=== PATIENT | male | born 1955 | race Caucasian/White ===

== ENCOUNTER → 2020-04-27 13:26 | Outpatient (CLI) | payer BC, SELFPAY ==
[2020-04-27 13:34] LABS: Basophils # 0.1 K/mm3 (0-0.2); Basophils % 0.5 % (0.1-2.0); Eosinophils # 0.3 K/mm3 (0.0-0.4); Eosinophils % 2.3 % (0.1-12.0); Hemoglobin 17.1 g/dL (14.1-18.0); Lymphocytes # 1.9 K/mm3 (0.7-4.5); Lymphocytes % 15.8 % (10-50); Mean Corpuscular HGB Conc 34.9 g/dL (31.8-35.4); Mean Corpuscular Hemoglobin 33.6 pg (27.0-31.2); Mean Corpuscular Volume 96.4 fl (80-94); Mean Platelet Volume 8.8 fl (7.4-10.4); Monocytes # 0.7 K/mm3 (0.1-1.0); Monocytes % 5.3 % (1.7-9.3); Neutrophils # 9.3 K/mm3 (1.8-7.8); Platelet Count 202 K/mm3 (142-424); Red Blood Count 5.08 M/mm3 (4.60-6.20); Red Cell Distribution Width 13.3 % (11.5-17.5); White Blood Count 12.3 K/mm3 (4.8-10.8)
[2020-04-27 13:39] LABS: Alanine Aminotransferase 36 U/L (12-78); Albumin Level 4.1 g/dl (3.5-5.0); Albumin/Globulin Ratio 1.6 (1.1-1.8); Alkaline Phosphatase 69 U/L (38-126); Anion Gap 12.4 mEq/L (5-15); Aspartate Amino Transferase 28 U/L (17-59); Bilirubin,Total 0.9 mg/dl (0.2-1.3); Blood Urea Nitrogen 22 mg/dl (9-20); Calcium 9.7 mg/dl (8.4-10.2); Carbon Dioxide 33 mmol/L (22.0-30.0); Chloride 98 mmol/L (98-107); Chol/HDL Ratio 3.2 (1-3.5); Cholesterol 170 mg/dl (140-200); Estimated Glomerular Filt Rate 61 ml/min (>60); GFR (African American) 74 ML/MIN (>60); Globulin 2.5 g/dL (1.3-3.2); Glucose 112 mg/dl (74-100); HDL Cholesterol 53 mg/dl (40-60); Potassium 4.4 mmoL/L (3.5-5.1); Sodium 139 mmol/L (136-145); Total Protein,Serum 6.6 g/dl (6.3-8.2); Triglycerides 125 mg/dl (30-150); VLDL Cholesterol 25 mg/dL (0-40)
[2020-04-27 13:49] LABS: Direct LDL Cholesterol 104.21 mg/dL (100-129)
[2020-04-27 14:09] LABS: Prostate Specific Ag Screen 0.6 ng/ml (0.0-4.0)
[2020-05-01 09:10] LABS: Testosterone, Total, LC/MS 826.5 ng/dL (264.0-916.0); Testosterone,Free 21.1 pg/mL (6.6-18.1)
== END ==
PROVIDERS: Visit Provider Family Medicine
DX: R05 Cough (principal); I10 Essential (primary) hypertension; E03.9 Hypothyroidism, unspecified; E78.5 Hyperlipidemia, unspecified; Z12.5 Encounter for screening for malignant neoplasm of prostate
CPT/HCPCS: 80053; 80061; 84402; 84403; 85025; G0103

== ENCOUNTER → 2020-08-10 16:26 | Outpatient (CLI) | payer BC, SELFPAY ==
[2020-08-10 16:57] LABS: Alanine Aminotransferase 47 U/L (12-78); Albumin Level 4.2 g/dl (3.5-5.0); Albumin/Globulin Ratio 1.6 (1.1-1.8); Alkaline Phosphatase 68 U/L (38-126); Anion Gap 8.7 mEq/L (5-15); Aspartate Amino Transferase 32 U/L (17-59); Blood Urea Nitrogen 23 mg/dl (9-20); Calcium 9.9 mg/dl (8.4-10.2); Carbon Dioxide 36 mmol/L (22.0-30.0); Chloride 98 mmol/L (98-107); Estimated Glomerular Filt Rate 67 ml/min (>60); GFR (African American) 82 ML/MIN (>60); Globulin 2.6 g/dL (1.3-3.2); Glucose 103 mg/dl (74-100); Potassium 4.7 mmoL/L (3.5-5.1); Sodium 138 mmol/L (136-145); Total Protein,Serum 6.8 g/dl (6.3-8.2)
[2020-08-10 17:26] LABS: Thyroid Stimulating Hormone 1.51 uIU/mL (0.465-4.68)
== END ==
PROVIDERS: Visit Provider Family Medicine
DX: R53.83 Other fatigue (principal); I10 Essential (primary) hypertension; E03.9 Hypothyroidism, unspecified; E78.5 Hyperlipidemia, unspecified; Z23 Encounter for immunization
CPT/HCPCS: 80053; 84443

== ENCOUNTER → 2020-08-17 13:37 | Outpatient (CLI) | payer BC, SELFPAY ==
--- NOTE | 2020-08-17 13:44 | XR_ITS ---
PROCEDURE: XR CHEST 2V CLINICAL HISTORY: dyspnea COMPARISON: No exams were available for comparison FINDINGS: Borderline cardiomegaly without failure. The lungs are clear without infiltrates, suspicious nodules, or pleural effusions. There is increased density in the lower aspect of the anterior clear space and may be related to summation may be confirmed with follow-up if clinically warranted. Degenerative changes thoracic. IMPRESSION: 1. No acute finding. 2. Triangular-shaped opacity along the inferior aspect of the anterior clear space possibly related to summation artifact may be confirmed Dictated by: Dilan Youngblood MD 08/17/2020 14:02 Dilan Youngblood MD in [place] 08/17/2020 14:02
[2020-08-17 14:45] LABS: Basophils # 0.1 K/mm3 (0-0.2); Basophils % 0.5 % (0.1-2.0); Eosinophils # 0.4 K/mm3 (0.0-0.4); Eosinophils % 2.9 % (0.1-12.0); Hematocrit 53.4 % (42.0-52.0); Lymphocytes # 1.8 K/mm3 (0.7-4.5); Lymphocytes % 14.5 % (10-50); Mean Corpuscular Hemoglobin 32.2 pg (27.0-31.2); Mean Corpuscular Volume 94.8 fl (80-94); Monocytes # 0.7 K/mm3 (0.1-1.0); Monocytes % 5.8 % (1.7-9.3); Neutrophils # 9.2 K/mm3 (1.8-7.8); Neutrophils % 76.3 % (37.0-80.0); Platelet Count 221 K/mm3 (142-424); Red Blood Count 5.63 M/mm3 (4.60-6.20); Red Cell Distribution Width 13.5 % (11.5-17.5); White Blood Count 12.1 K/mm3 (4.8-10.8)
[2020-08-17 15:05] LABS: Hemoglobin 18.4 g/dL (14.1-18.0)
[2020-08-17 15:39] LABS: Alanine Aminotransferase 34 U/L (12-78); Albumin Level 4.4 g/dl (3.5-5.0); Alkaline Phosphatase 64 U/L (38-126); Aspartate Amino Transferase 29 U/L (17-59); Bilirubin,Direct 0.1 mg/dl (0.0-0.4); Bilirubin,Indirect 0.7 mg/dL (0.0-0.9); Bilirubin,Total 0.8 mg/dl (0.2-1.3); Bilirubin,Unconjugated 0.7 mg/dL (0.0-1.1); Blood Urea Nitrogen 29 mg/dl (9-20); Calcium 10.1 mg/dl (8.4-10.2); Carbon Dioxide 34 mmol/L (22.0-30.0); Chloride 97 mmol/L (98-107); Chol/HDL Ratio 3.2 (1-3.5); Cholesterol 175 mg/dl (140-200); Estimated Glomerular Filt Rate 67 ml/min (>60); GFR (African American) 82 ML/MIN (>60); Glucose 96 mg/dl (74-100); HDL Cholesterol 55 mg/dl (40-60); Sodium 137 mmol/L (136-145); Triglycerides 143 mg/dl (30-150); VLDL Cholesterol 29 mg/dL (0-40)
[2020-08-17 15:49] LABS: NT Pro Brain Natriuretic Pep. 106 pg/mL (0-125)
[2020-08-17 15:50] LABS: Direct LDL Cholesterol 95.02 mg/dL (100-129)
[2020-08-17 15:57] LABS: Free T4 (Free Thyroxine) 1.33 ng/dl (0.78-2.19)
[2020-08-17 16:10] LABS: Thyroid Stimulating Hormone 1.51 uIU/mL (0.465-4.68)
[2020-08-18 15:35] LABS: Coronavirus 19 IgG Antibody Negative (Negative); Coronavirus 19 IgM Antibody Negative (Negative)
== END ==
PROVIDERS: PCP Family Medicine; Visit Provider Urology
DX: R07.9 Chest pain, unspecified (principal); R06.00 Dyspnea, unspecified; R06.02 Shortness of breath; I50.9 Heart failure, unspecified; E66.9 Obesity, unspecified; E78.5 Hyperlipidemia, unspecified; G47.33 Obstructive sleep apnea (adult) (pediatric); I10 Essential (primary) hypertension
CPT/HCPCS: 36415; 71046; 80048; 80061; 80076; 83880; 84439; 84443; 85025; 86328

== ENCOUNTER 2020-08-19 08:11 | Day surgery (SDC) | payer BC, SELFPAY ==
[2020-08-19] VITALS (13 sets, daily range): BP systolic 95–144; BP diastolic 43–93; PULSE 64–86; RESP 12–18; TEMP 37.1; O2SAT 92–98; BMI 44.1
--- NOTE | 2020-08-19 | IR_ITS ---
APPROVED REPORT Patient Location: Outpatient [facility] Operator: AUGUST Lutz RT (R) PROCEDURES Left heart catheterization Left ventriculogram Selective coronary angiogram 500 cc therapeutic phlebotomy INDICATION Angina pectoris class IV, Congestive heart failure symptoms class IV, Polycythemia Informed consent was obtained prior to the procedure. COMPLICATIONS NONE Estimated Blood Loss: LESS THAN 10 ML TECHNIQUE One percent lidocaine used to anesthetize the right anterior aspect of the wrist. The right radial artery was accessed via the Seldinger technique. A 6 Macanese sheath was placed in the right radial artery. 2.5 mg of verapamil, 800 mcg of nitroglycerin, 1mg Lidocaine and 5000 U Heparin were given through the arterial sheath. The trap catheter was also used to perform left heart catheterization, left ventriculogram and selective coronary angiogram. At the end of the diagnostic heart procedure 500 cc of whole blood was removed from the arterial sheath. Patient tolerated the procedure well and remained asymptomatic throughout. His blood pressure was hemodynamically stable. At the end of the therapeutic phlebotomy the apparatus was removed the sheath was removed good hemostasis was achieved using TR banding patient was transferred to the postop holding in stable condition ANGIOGRAPHIC RESULTS The left main artery Normal The left anterior descending artery Normal The circumflex artery Normal The right coronary artery Dominant normal The GALVEZ ventriculogram reveals Normal slightly hyperdynamic at 75% The left ventricular end-diastolic pressure Elevated at 30 mmHg IMPRESSION Normal coronary arteries Hyperdynamic ventricle consistent with diastolic dysfunction Severely elevated LVEDP consistent with diastolic dysfunction Successful 500 cc large volume therapeutic phlebotomy PLAN 1. Treat diastolic dysfunction 2. Evaluation of polycythemia which should include renal ultrasound looking for renal cell carcinoma as well as a sleep study and other etiologies for polycythemia 3. As needed phlebotomy for polycythemia Electronically signed by : Alejandro Jenkins, 08/19/2020 11:49:52
== END 2020-08-19 14:46 | disposition home or self-care (01) ==
PROVIDERS: PCP Family Medicine; Visit Provider Internal Medicine
DX: I50.32 Chronic diastolic (congestive) heart failure (principal); E78.5 Hyperlipidemia, unspecified; G47.33 Obstructive sleep apnea (adult) (pediatric); R06.00 Dyspnea, unspecified; I11.0 Hypertensive heart disease with heart failure; R06.02 Shortness of breath; R07.9 Chest pain, unspecified; Z68.41 Body mass index [BMI] 40.0-44.9, adult; Z79.82 Long term (current) use of aspirin; Z79.899 Other long term (current) drug therapy; E03.9 Hypothyroidism, unspecified; I25.118 Atherosclerotic heart disease of native coronary artery with other forms of angina pectoris; E66.01 Morbid (severe) obesity due to excess calories; D75.1 Secondary polycythemia
CPT/HCPCS: 93306; 93458; 99152; 99195; C1725; C1760; C1769; J1644

== ENCOUNTER → 2020-09-04 12:23 | Outpatient (CLI) | payer BC, SELFPAY ==
--- NOTE | 2020-09-04 12:45 | US_ITS ---
PROCEDURE: US KIDNEY CLINICAL INDICATION: D75.1 - Secondary polycythemia COMPARISON: No exams were available for comparison FINDINGS: The right kidney is [id number]. No hydronephrosis, cortical thinning, or renal mass or perinephric fluid collection is evident. There is a 3 cm cyst along the lower pole of the right kidney. The left kidney is not demonstrated IMPRESSION: Unremarkable right renal ultrasound with hypertrophy of the right kidney. Left kidney is not demonstrated. Patient reports having only 1 kidney. Dictated by: Dilan Youngblood MD 09/04/2020 16:32 Dilan Youngblood MD in [place] 09/04/2020 16:32
[2020-09-04 13:28] LABS: Chloride 97 mmol/L (98-107); Sodium 137 mmol/L (136-145)
[2020-09-04 13:31] LABS: Blood Urea Nitrogen 30 mg/dl (9-20); Calcium 10.4 mg/dl (8.4-10.2); Carbon Dioxide 33 mmol/L (22.0-30.0); Estimated Glomerular Filt Rate 67 ml/min (>60); GFR (African American) 82 ML/MIN (>60); Glucose 111 mg/dl (74-100)
[2020-09-04 13:39] LABS: Basophils # 0.1 K/mm3 (0-0.2); Basophils % 0.5 % (0.1-2.0); Eosinophils # 0.3 K/mm3 (0.0-0.4); Eosinophils % 2.5 % (0.1-12.0); Hematocrit 52.5 % (42.0-52.0); Hemoglobin 17.6 g/dL (14.1-18.0); Lymphocytes # 1.9 K/mm3 (0.7-4.5); Lymphocytes % 15.5 % (10-50); Mean Corpuscular HGB Conc 33.5 g/dL (31.8-35.4); Mean Corpuscular Hemoglobin 33.1 pg (27.0-31.2); Mean Corpuscular Volume 98.9 fl (80-94); Mean Platelet Volume 9.6 fl (7.4-10.4); Monocytes # 0.8 K/mm3 (0.1-1.0); Monocytes % 6.4 % (1.7-9.3); Neutrophils # 9.4 K/mm3 (1.8-7.8); Neutrophils % 75.1 % (37.0-80.0); Platelet Count 223 K/mm3 (142-424); Red Blood Count 5.31 M/mm3 (4.60-6.20); Red Cell Distribution Width 12.5 % (11.5-17.5); White Blood Count 12.4 K/mm3 (4.8-10.8)
== END ==
PROVIDERS: PCP Family Medicine; Visit Provider Urology
DX: D75.1 Secondary polycythemia (principal); R06.00 Dyspnea, unspecified; R60.9 Edema, unspecified; I50.9 Heart failure, unspecified; E66.9 Obesity, unspecified; E78.5 Hyperlipidemia, unspecified; I10 Essential (primary) hypertension
CPT/HCPCS: 36415; 76770; 80048; 85025

== ENCOUNTER → 2020-09-04 12:32 | Outpatient (CLI) | payer BC, SELFPAY | PROVIDERS: Visit Provider Urology | DX: D75.1 Secondary polycythemia (principal) | CPT/HCPCS: 36415; 80048; 85025 ==

== ENCOUNTER → 2021-01-04 10:29 | Outpatient (CLI) | payer MEDICARE, SELFPAY ==
--- NOTE | 2021-01-04 10:29 | US_ITS ---
PROCEDURE: US KIDNEY CLINICAL INDICATION: Follow-up right renal cyst COMPARISON: US US KIDNEY from 09/04/2020 FINDINGS: There is a solitary right kidney. Right kidney measures twelve by by 9 cm. No hydronephrosis. A small cyst is present along the upper pole at 12 mm. Along the lower pole there is a 1 cm cyst. Additionally along the lower pole there is a 3 cm cyst. Questionable echoes are present within the 3 cm cyst. This however may be due to imaging technique and angling. Continued follow-up is suggested. IMPRESSION: Three right renal cysts the largest in the lower pole at 3 cm with questionable internal echoes not readily apparent on the previous study. MRI of the kidneys without and with gadolinium enhancement may provide further evaluation. Dictated by: Dilan Youngblood MD 01/04/2021 13:48 Dilan Youngblood MD in [place] 01/04/2021 13:48
== END ==
PROVIDERS: PCP Family Medicine; Visit Provider Physician Assistant
DX: N28.1 Cyst of kidney, acquired (principal)
CPT/HCPCS: 76770

== ENCOUNTER → 2021-01-11 13:52 | Outpatient (CLI) | payer MEDICARE, SELFPAY ==
[2021-01-11 14:33] LABS: Basophils # 0.1 K/mm3 (0-0.2); Basophils % 0.4 % (0.1-2.0); Eosinophils # 0.4 K/mm3 (0.0-0.4); Eosinophils % 3.3 % (0.1-12.0); Hematocrit 47.8 % (42.0-52.0); Hemoglobin 16.2 g/dL (14.1-18.0); Lymphocytes # 2.4 K/mm3 (0.7-4.5); Lymphocytes % 19.3 % (10-50); Mean Corpuscular HGB Conc 33.8 g/dL (31.8-35.4); Mean Corpuscular Hemoglobin 32.4 pg (27.0-31.2); Mean Platelet Volume 7.8 fl (7.4-10.4); Monocytes # 0.7 K/mm3 (0.1-1.0); Neutrophils # 8.6 K/mm3 (1.8-7.8); Neutrophils % 70.9 % (37.0-80.0); Platelet Count 221 K/mm3 (142-424); Red Blood Count 4.98 M/mm3 (4.60-6.20); Red Cell Distribution Width 12.7 % (11.5-17.5); White Blood Count 12.2 K/mm3 (4.8-10.8)
== END ==
PROVIDERS: Visit Provider Nurse Practitioner Family
DX: R06.00 Dyspnea, unspecified (principal)
CPT/HCPCS: 36415; 85025

== ENCOUNTER → 2021-01-14 08:24 | Outpatient (CLI) | payer MEDICARE, SELFPAY ==
--- NOTE | 2021-01-14 08:24 | MR_ITS ---
PROCEDURE: MR ABDOMEN WO/W CON CLINICAL INDICATION: right renal cyst Pt states he was born with only 1 kidney. Cyst was found on the rt kidney when he had a US done. This is to evaluate the cysts better per pt. Pt has large abdomen and only the kidney was able to be evaluated in the pre and contrast sequences. COMPARISON: US US KIDNEY from 09/04/2020 US US KIDNEY from 01/04/2021 TECHNIQUE: Routine multiplanar multi echo sequences are performed without gadolinium enhancement. Pt has large abdomen and only the kidney was able to be evaluated in the pre and contrast sequences. 26 ml prohance used for contrast. Lot#[id number] exp:11/2022. Lot# [id number] exp:04/2023 bun:30 creat:1.4 gfr:51. FINDINGS: There are 2 cysts of the right kidney 1 in the lower pole at 11 mm and 1 in the mid polar region at 13 mm. The show decreased T1 and increased T2 signal without enhancement consistent with simple cyst. The 3rd area measured on the recent ultrasound does not represent an area of cyst or solid lesion and was likely due to an area of artifact. There are few other tiny cyst within the right kidney. No suspicious solid lesions are evident. The right kidney is hypertrophic as the patient only has 1 kidney. There is a small hepatic cyst at 5 mm in the right hepatic lobe. The remaining abdomen was difficult to evaluate secondary to artifact and patient's body size. The gallbladder has an unremarkable appearance. No obvious pancreatic mass. The spleen has an unremarkable appearance. IMPRESSION: Benign-appearing right renal cyst. No suspicious solid lesions evident. Dictated by: Dilan Youngblood MD 01/16/2021 10:57 Dilan Youngblood MD in [place] 01/16/2021 10:57
[2021-01-14 08:53] LABS: Blood Urea Nitrogen 30 mg/dl (9-20); Estimated Glomerular Filt Rate 51 ml/min (>60); GFR (African American) 62 ML/MIN (>60)
== END ==
PROVIDERS: PCP Family Medicine; Visit Provider Nurse Practitioner Family
DX: N28.1 Cyst of kidney, acquired (principal)
CPT/HCPCS: 36415; 74183; 82565; 84520; A9576

== ENCOUNTER → 2021-03-25 17:23 | Outpatient (CLI) | payer MEDICARE, SELFPAY ==
[2021-03-25 18:06] LABS: Basophils # 0.1 K/mm3 (0-0.2); Basophils % 0.5 % (0.1-2.0); Eosinophils # 0.3 K/mm3 (0.0-0.4); Eosinophils % 2.6 % (0.1-12.0); Hematocrit 45.4 % (42.0-52.0); Hemoglobin 15.4 g/dL (14.1-18.0); Lymphocytes % 17.2 % (10-50); Mean Corpuscular Hemoglobin 32.4 pg (27.0-31.2); Mean Corpuscular Volume 95.4 fl (80-94); Mean Platelet Volume 9.9 fl (7.4-10.4); Monocytes # 0.8 K/mm3 (0.1-1.0); Monocytes % 6.5 % (1.7-9.3); Neutrophils # 8.6 K/mm3 (1.8-7.8); Neutrophils % 73.3 % (37.0-80.0); Platelet Count 218 K/mm3 (142-424); Red Blood Count 4.76 M/mm3 (4.60-6.20); Red Cell Distribution Width 13.3 % (11.5-17.5); White Blood Count 11.7 K/mm3 (4.8-10.8)
[2021-03-25 19:15] LABS: Chloride 97 mmol/L (98-107); Potassium 4.8 mmoL/L (3.5-5.1); Sodium 139 mmol/L (136-145)
[2021-03-25 19:17] LABS: Blood Urea Nitrogen 35 mg/dl (9-20); Estimated Glomerular Filt Rate 51 ml/min (>60); GFR (African American) 62 ML/MIN (>60)
[2021-03-25 19:18] LABS: Alanine Aminotransferase 36 U/L (12-78); Albumin Level 4.7 g/dl (3.5-5.0); Albumin/Globulin Ratio 1.7 (1.1-1.8); Alkaline Phosphatase 68 U/L (38-126); Anion Gap 16.8 mEq/L (5-15); Aspartate Amino Transferase 29 U/L (17-59); Bilirubin,Total 0.7 mg/dl (0.2-1.3); Carbon Dioxide 30 mmol/L (22.0-30.0); Globulin 2.8 g/dL (1.3-3.2); Glucose 97 mg/dl (74-100); Total Protein,Serum 7.5 g/dl (6.3-8.2)
[2021-03-25 19:49] LABS: Thyroid Stimulating Hormone 0.24 uIU/mL (0.465-4.68)
[2021-04-02 12:41] LABS: Testosterone,Free 21.9 pg/mL (6.6-18.1)
== END ==
PROVIDERS: Visit Provider Family Medicine
DX: E29.1 Testicular hypofunction (principal); R42 Dizziness and giddiness; I51.89 Other ill-defined heart diseases; E03.9 Hypothyroidism, unspecified
CPT/HCPCS: 80053; 84402; 84403; 84443; 85025

== ENCOUNTER → 2021-12-20 16:00 | Outpatient (CLI) | payer MEDICARE, SELFPAY ==
[2021-12-20 14:15] LABS: Basophils # 0.1 K/mm3 (0-0.2); Basophils % 0.4 % (0.1-2.0); Eosinophils # 0.4 K/mm3 (0.0-0.4); Eosinophils % 2.9 % (0.1-12.0); Hematocrit 48.5 % (42.0-52.0); Hemoglobin 15.4 g/dL (14.1-18.0); Lymphocytes # 1.7 K/mm3 (0.7-4.5); Lymphocytes % 14.5 % (10-50); Mean Corpuscular HGB Conc 31.8 g/dL (31.8-35.4); Mean Corpuscular Hemoglobin 33.3 pg (27.0-31.2); Mean Corpuscular Volume 104.7 fl (80-94); Mean Platelet Volume 10.4 fl (7.4-10.4); Monocytes # 0.7 K/mm3 (0.1-1.0); Monocytes % 5.7 % (1.7-9.3); Neutrophils # 9.2 K/mm3 (1.8-7.8); Neutrophils % 76.5 % (37.0-80.0); Platelet Count 261 K/mm3 (142-424); Red Blood Count 4.63 M/mm3 (4.60-6.20); Red Cell Distribution Width 13.4 % (11.5-17.5)
[2021-12-20 16:34] LABS: Anion Gap 12.6 mEq/L (5-15); Blood Urea Nitrogen 29 mg/dl (9-20); Calcium 9.4 mg/dl (8.4-10.2); Carbon Dioxide 28 mmol/L (22.0-30.0); Chloride 99 mmol/L (98-107); Chol/HDL Ratio 4.3 (1-3.5); Cholesterol 170 mg/dl (140-200); Estimated Glomerular Filt Rate 61 ml/min (>60); GFR (African American) 74 ML/MIN (>60); Glucose 111 mg/dl (74-100); HDL Cholesterol 40 mg/dl (40-60); Potassium 4.6 mmoL/L (3.5-5.1); Sodium 135 mmol/L (136-145); Triglycerides 197 mg/dl (30-150); VLDL Cholesterol 39 mg/dL (0-40)
[2021-12-20 16:44] LABS: Direct LDL Cholesterol 87.96 mg/dL (100-129)
[2021-12-20 17:23] LABS: Thyroid Stimulating Hormone 0.49 uIU/mL (0.465-4.68)
[2022-01-04 14:14] LABS: Testosterone, Total, LC/MS 276.4 ng/dL (264.0-916.0)
== END ==
PROVIDERS: Visit Provider Family Medicine
DX: R06.00 Dyspnea, unspecified (principal); E66.9 Obesity, unspecified; E03.9 Hypothyroidism, unspecified; N28.1 Cyst of kidney, acquired; Z68.42 Body mass index [BMI] 45.0-49.9, adult
CPT/HCPCS: 80048; 80061; 84402; 84403; 84443; 85025

== ENCOUNTER → 2022-05-21 09:13 | Outpatient (CLI) | payer MEDICARE, SELFPAY ==
[2022-05-20 18:59] LABS: Alanine Aminotransferase 37 U/L (12-78); Albumin Level 4.1 g/dl (3.5-5.0); Albumin/Globulin Ratio 1.5 (1.1-1.8); Alkaline Phosphatase 86 U/L (38-126); Aspartate Amino Transferase 39 U/L (17-59); Bilirubin,Total 0.8 mg/dl (0.2-1.3); Blood Urea Nitrogen 31 mg/dl (9-20); Calcium 9.6 mg/dl (8.4-10.2); Carbon Dioxide 32 mmol/L (22.0-30.0); Chloride 99 mmol/L (98-107); Cholesterol 170 mg/dl (140-200); Estimated Glomerular Filt Rate 67 ml/min (>60); GFR (African American) 81 ML/MIN (>60); Globulin 2.8 g/dL (1.3-3.2); Glucose 121 mg/dl (74-100); HDL Cholesterol 43 mg/dl (40-60); Sodium 136 mmol/L (136-145); Total Protein,Serum 6.9 g/dl (6.3-8.2); Triglycerides 210 mg/dl (30-150); VLDL Cholesterol 42 mg/dL (0-40)
[2022-05-20 19:30] LABS: Prostate Specific Ag Screen 0.7 ng/ml (0.0-4.0); Thyroid Stimulating Hormone 0.22 uIU/mL (0.465-4.68)
[2022-05-20 19:39] LABS: Basophils # 0.1 K/mm3 (0-0.2); Basophils % 0.5 % (0.1-2.0); Eosinophils # 0.2 K/mm3 (0.0-0.4); Eosinophils % 2.2 % (0.1-12.0); Hematocrit 48.7 % (42.0-52.0); Hemoglobin 15.4 g/dL (14.1-18.0); Lymphocytes # 1.6 K/mm3 (0.7-4.5); Mean Corpuscular HGB Conc 31.5 g/dL (31.8-35.4); Mean Corpuscular Hemoglobin 33.2 pg (27.0-31.2); Mean Corpuscular Volume 105.2 fl (80-94); Mean Platelet Volume 10.6 fl (7.4-10.4); Monocytes # 0.6 K/mm3 (0.1-1.0); Monocytes % 5.9 % (1.7-9.3); Neutrophils # 8.1 K/mm3 (1.8-7.8); Neutrophils % 76.4 % (37.0-80.0); Platelet Count 262 K/mm3 (142-424); Red Blood Count 4.63 M/mm3 (4.60-6.20); Red Cell Distribution Width 13.3 % (11.5-17.5); White Blood Count 10.6 K/mm3 (4.8-10.8)
[2022-05-20 21:15] LABS: Vitamin B12 > 1000 pg/mL (239-931)
[2022-05-23 09:36] LABS: Direct LDL Cholesterol 94 mg/dL (100-129)
[2022-05-27 12:22] LABS: Testosterone, Total, LC/MS 491.9 ng/dL (264.0-916.0); Testosterone,Free 10.1 pg/mL (6.6-18.1)
== END ==
PROVIDERS: PCP Family Medicine; Visit Provider Family Medicine
DX: E03.9 Hypothyroidism, unspecified (principal); E78.5 Hyperlipidemia, unspecified; R53.83 Other fatigue; Z12.5 Encounter for screening for malignant neoplasm of prostate; E78.2 Mixed hyperlipidemia
CPT/HCPCS: 80053; 80061; 82607; 84402; 84403; 84443; 85025; G0103

== ENCOUNTER → 2022-12-27 10:15 | Outpatient (CLI) | payer MEDICARE, SELFPAY ==
[2022-12-27 13:39] LABS: Basophils # 0.1 K/mm3 (0-0.2); Basophils % 0.9 % (0.1-2.0); Eosinophils # 0.3 K/mm3 (0.0-0.4); Hematocrit 50.8 % (42.0-52.0); Hemoglobin 16.1 g/dL (14.1-18.0); Lymphocytes % 14.5 % (10-50); Mean Corpuscular HGB Conc 31.8 g/dL (31.8-35.4); Mean Corpuscular Hemoglobin 32.8 pg (27.0-31.2); Mean Corpuscular Volume 103.2 fl (80-94); Mean Platelet Volume 10.3 fl (7.4-10.4); Monocytes # 0.6 K/mm3 (0.1-1.0); Monocytes % 4.8 % (1.7-9.3); Neutrophils # 10.4 K/mm3 (1.8-7.8); Neutrophils % 77.8 % (37.0-80.0); Platelet Count 249 K/mm3 (142-424); Red Blood Count 4.92 M/mm3 (4.60-6.20); Red Cell Distribution Width 12.7 % (11.5-17.5); White Blood Count 13.4 K/mm3 (4.8-10.8)
[2022-12-27 13:49] LABS: Alanine Aminotransferase 28 U/L (12-78); Albumin Level 4.2 g/dl (3.5-5.0); Albumin/Globulin Ratio 1.6 (1.1-1.8); Alkaline Phosphatase 66 U/L (38-126); Anion Gap 13.4 mEq/L (5-15); Aspartate Amino Transferase 28 U/L (17-59); Bilirubin,Total 0.7 mg/dl (0.2-1.3); Blood Urea Nitrogen 51 mg/dl (9-20); Calcium 9.7 mg/dl (8.4-10.2); Carbon Dioxide 33 mmol/L (22.0-30.0); Chloride 96 mmol/L (98-107); Cholesterol 181 mg/dl (140-200); Estimated Glomerular Filt Rate 43 ml/min (>60); GFR (African American) 53 ML/MIN (>60); Globulin 2.6 g/dL (1.3-3.2); Glucose 113 mg/dl (74-100); HDL Cholesterol 45 mg/dl (40-60); Potassium 5.4 mmoL/L (3.5-5.1); Sodium 137 mmol/L (136-145); Total Protein,Serum 6.8 g/dl (6.3-8.2); Triglycerides 206 mg/dl (30-150); VLDL Cholesterol 41 mg/dL (0-40)
[2022-12-27 13:59] LABS: Direct LDL Cholesterol 101.61 mg/dL (100-129)
[2022-12-27 14:06] LABS: 25-OH Vitamin D, Total 15.6 ng/mL (30-100)
[2022-12-27 14:18] LABS: Thyroid Stimulating Hormone 0.17 uIU/mL (0.465-4.68)
[2022-12-27 14:34] LABS: Hemoglobin A1C 5.7 % (4.0-6.0)
[2023-01-08 20:05] LABS: Testosterone, Total, LC/MS 237 ng/dL (.)
== END ==
PROVIDERS: PCP Family Medicine; Visit Provider Family Medicine
DX: I10 Essential (primary) hypertension (principal); E29.1 Testicular hypofunction; E11.9 Type 2 diabetes mellitus without complications; E55.9 Vitamin D deficiency, unspecified
CPT/HCPCS: 80053; 80061; 82306; 83036; 84403; 84443; 85025

== ENCOUNTER → 2023-01-24 14:42 | Outpatient (CLI) | payer MEDICARE, SELFPAY ==
[2023-01-24 14:36] LABS: Alanine Aminotransferase 26 U/L (12-78); Albumin Level 3.8 g/dl (3.5-5.0); Albumin/Globulin Ratio 1.5 (1.1-1.8); Alkaline Phosphatase 71 U/L (38-126); Anion Gap 10.9 mEq/L (5-15); Aspartate Amino Transferase 23 U/L (17-59); Bilirubin,Total 0.4 mg/dl (0.2-1.3); Blood Urea Nitrogen 32 mg/dl (9-20); Calcium 9.4 mg/dl (8.4-10.2); Carbon Dioxide 38 mmol/L (22.0-30.0); Chloride 97 mmol/L (98-107); Estimated Glomerular Filt Rate 47 ml/min (>60); GFR (African American) 56 ML/MIN (>60); Globulin 2.6 g/dL (1.3-3.2); Glucose 105 mg/dl (74-100); Potassium 4.9 mmoL/L (3.5-5.1); Sodium 141 mmol/L (136-145); Total Protein,Serum 6.4 g/dl (6.3-8.2)
== END ==
PROVIDERS: PCP Family Medicine; Visit Provider Family Medicine
DX: E78.5 Hyperlipidemia, unspecified (principal)
CPT/HCPCS: 80053

== ENCOUNTER → 2023-03-22 13:01 | Outpatient (CLI) | payer MEDICARE, SELFPAY ==
--- NOTE | 2023-03-22 13:46 | CT_ITS ---
FINAL REPORT CLINICAL HISTORY: lung cancer screening, former smoker, quit 5 yrs ago, smoked 2 pk per day x 15 yrs COMPARISON: None FINDINGS: CT CHEST LOW DOSE SCREENING HISTORY: Screening exam for lung cancer. Former smoker, 30 pack year smoking history DOSE: CTDIvol: 2.9 mGy, DLP: 123.5 mGy*cm COMPARISON: None . TECHNIQUE: Axial CT without IV contrast administration using low dose protocol FINDINGS: There is a right lower lobe opacity worrisome for pneumonia. A small right pleural effusion is present as well. There is mild left base and right middle lobe scar versus atelectasis. No pulmonary lesions are seen suspicious for neoplasm. No adenopathy or mass lesion is present . IMPRESSION: Right middle lobe opacity worrisome for pneumonia. A small right pleural effusion is present as well. LUNG RADS CATEGORY 0 RECOMMENDATION: 1-3 month LDCT follow up Reviewed, Interpreted and Dictated by Shiva Vera III, MD Transcribed by Hannah Jessica Authenticated and . [facility]
== END ==
PROVIDERS: PCP Family Medicine; Visit Provider Internal Medicine Pulmonary Disease
DX: R06.02 Shortness of breath (principal); Z87.891 Personal history of nicotine dependence; Z12.2 Encounter for screening for malignant neoplasm of respiratory organs
CPT/HCPCS: 71271; 93306; 94060; 94618; 94726; 94729; 94762

== ENCOUNTER → 2023-04-20 09:52 | Outpatient (CLI) | payer MEDICARE, SELFPAY ==
[2023-04-20 11:21] LABS: Blood Urea Nitrogen 36 mg/dl (9-20); Calcium 9.7 mg/dl (8.4-10.2); Carbon Dioxide 36 mmol/L (22.0-30.0); Chloride 98 mmol/L (98-107); Estimated Glomerular Filt Rate 47 ml/min (>60); GFR (African American) 56 ML/MIN (>60); Glucose 114 mg/dl (74-100); Sodium 140 mmol/L (136-145)
== END ==
PROVIDERS: PCP Family Medicine; Visit Provider Nurse Practitioner Family
DX: E66.9 Obesity, unspecified (principal); R06.09 Other forms of dyspnea; Z87.09 Personal history of other diseases of the respiratory system; Z68.42 Body mass index [BMI] 45.0-49.9, adult
CPT/HCPCS: 36415; 80048

== ENCOUNTER → 2023-05-04 11:49 | Outpatient (CLI) | payer MEDICARE, SELFPAY ==
[2023-05-04 12:55] LABS: Chloride 99 mmol/L (98-107); Potassium 5.4 mmoL/L (3.5-5.1); Sodium 140 mmol/L (136-145)
[2023-05-04 12:58] LABS: Anion Gap 11.4 mEq/L (5-15); Blood Urea Nitrogen 40 mg/dl (9-20); Carbon Dioxide 35 mmol/L (22.0-30.0); Estimated Glomerular Filt Rate 47 ml/min (>60); GFR (African American) 56 ML/MIN (>60)
[2023-05-04 12:59] LABS: Calcium 10.4 mg/dl (8.4-10.2); Glucose 108 mg/dl (74-100)
== END ==
PROVIDERS: PCP Family Medicine; Visit Provider Internal Medicine
DX: E66.9 Obesity, unspecified (principal); E78.5 Hyperlipidemia, unspecified; I10 Essential (primary) hypertension; I50.9 Heart failure, unspecified; R06.09 Other forms of dyspnea; Z68.42 Body mass index [BMI] 45.0-49.9, adult
CPT/HCPCS: 36415; 80048

== ENCOUNTER → 2023-05-15 10:23 | Outpatient (CLI) | payer MEDICARE, SELFPAY | PROVIDERS: PCP Family Medicine; Visit Provider Internal Medicine | DX: I10 Essential (primary) hypertension (principal) ==

== ENCOUNTER → 2023-06-06 10:52 | Outpatient (CLI) | payer MEDICARE, SELFPAY ==
[2023-06-06 12:23] LABS: Anion Gap 9.8 mEq/L (5-15); Blood Urea Nitrogen 22 mg/dl (9-20); Calcium 9.6 mg/dl (8.4-10.2); Carbon Dioxide 37 mmol/L (22.0-30.0); Chloride 96 mmol/L (98-107); Estimated Glomerular Filt Rate 60 ml/min (>60); GFR (African American) 73 ML/MIN (>60); Glucose 117 mg/dl (74-100); Potassium 3.8 mmoL/L (3.5-5.1); Sodium 139 mmol/L (136-145)
== END ==
PROVIDERS: PCP Family Medicine; Visit Provider Internal Medicine
DX: E66.9 Obesity, unspecified (principal); E78.5 Hyperlipidemia, unspecified; I10 Essential (primary) hypertension; I50.9 Heart failure, unspecified; R06.09 Other forms of dyspnea; Z87.09 Personal history of other diseases of the respiratory system; Z68.42 Body mass index [BMI] 45.0-49.9, adult
CPT/HCPCS: 36415; 80048

== ENCOUNTER → 2023-08-07 19:29 | Outpatient (CLI) | payer MEDICARE, SELFPAY | PROVIDERS: PCP Family Medicine; Visit Provider Internal Medicine Pulmonary Disease | DX: G47.30 Sleep apnea, unspecified (principal) | CPT/HCPCS: 95810 ==

== ENCOUNTER → 2023-09-05 10:31 | Outpatient (CLI) | payer MEDICARE, SELFPAY ==
[2023-09-05 11:51] LABS: Calcium 9.2 mg/dl (8.4-10.2); Carbon Dioxide 35 mmol/L (22.0-30.0); Chloride 98 mmol/L (98-107); Glucose 116 mg/dl (74-100); Magnesium 2.3 mg/dl (1.6-2.3); Sodium 138 mmol/L (136-145)
[2023-09-05 11:52] LABS: Anion Gap 9.1 mEq/L (5-15); Blood Urea Nitrogen 31 mg/dl (9-20); Estimated Glomerular Filt Rate 51 ml/min (>60); GFR (African American) 61 ML/MIN (>60); Potassium 4.1 mmoL/L (3.5-5.1)
[2023-09-05 12:08] LABS: Free T4 (Free Thyroxine) 1.39 ng/dl (0.78-2.19)
[2023-09-05 12:24] LABS: Thyroid Stimulating Hormone 1.64 uIU/mL (0.465-4.68)
== END ==
PROVIDERS: PCP Family Medicine; Visit Provider Physician Assistant
DX: E78.5 Hyperlipidemia, unspecified (principal); I10 Essential (primary) hypertension; R06.09 Other forms of dyspnea; Z87.09 Personal history of other diseases of the respiratory system
CPT/HCPCS: 36415; 80048; 83735; 84439; 84443

== ENCOUNTER 2023-09-27 14:41 | Outpatient (CLI) | payer MEDICARE, SELFPAY ==
--- NOTE | 2023-09-27 14:42 | CT_ITS ---
FINAL REPORT TECHNIQUE: Axial images were obtained from the lung apex to the mid abdomen by computed tomography. Coronal reformatted images were obtained. This study was performed with techniques to keep radiation doses as low as reasonably achievable, (ALARA). Individualized dose reduction techniques using automated exposure control or adjustment of mA and/or kV according to the patient''s size were employed. CLINICAL HISTORY: Nodule/airspace disease/ILD follow COMPARISON: 03/22/2023 FINDINGS: There is no axillary adenopathy. There is no hilar or mediastinal adenopathy. Heart size is normal. There is no pericardial or pleural effusion. Limited images of the upper abdomen are unremarkable. Right middle lobe atelectasis or scar persists. There are improved right lower lobe opacities. There are worsening left lower lobe opacities, favor inflammatory. IMPRESSION: Improved right lower lobe opacities but worsening left lower lobe opacities. Recommend follow-up CT in 6 months. Reviewed, Interpreted and Dictated by Shiva Vera III, MD Transcribed by Bridget Carrero Authenticated and '[facility]
== END 2023-09-27 23:59 ==
LOC: RAD 14:42
PROVIDERS: PCP Family Medicine; Visit Provider Internal Medicine Pulmonary Disease
DX: R91.8 Other nonspecific abnormal finding of lung field (principal)
CPT/HCPCS: 71250

== ENCOUNTER 2024-02-05 15:00 | Outpatient (CLI) | payer MEDICARE, SELFPAY | END 2024-02-05 23:59 | disposition home or self-care (01) | LOC: RT 15:02 | PROVIDERS: PCP Family Medicine; Visit Provider Internal Medicine Pulmonary Disease | DX: G47.33 Obstructive sleep apnea (adult) (pediatric) (principal); J44.9 Chronic obstructive pulmonary disease, unspecified; Z87.891 Personal history of nicotine dependence | CPT/HCPCS: 94762 ==

== ENCOUNTER 2024-03-14 10:03 | Outpatient (CLI) | payer MEDICARE, SELFPAY ==
[2024-03-14 19:15] LABS: Basophils # 0.1 K/mm3 (0-0.2); Basophils % 0.6 % (0.1-2.0); Eosinophils # 0.3 K/mm3 (0.0-0.4); Eosinophils % 2.8 % (0.1-12.0); Hematocrit 42.9 % (42.0-52.0); Hemoglobin 13.6 g/dL (14.1-18.0); Lymphocytes # 1.3 K/mm3 (0.7-4.5); Lymphocytes % 13.1 % (10-50); Mean Corpuscular HGB Conc 31.7 g/dL (31.8-35.4); Mean Corpuscular Hemoglobin 32.7 pg (27.0-31.2); Monocytes # 0.6 K/mm3 (0.1-1.0); Monocytes % 6.2 % (1.7-9.3); Neutrophils # 7.8 K/mm3 (1.8-7.8); Neutrophils % 77.3 % (37.0-80.0); Platelet Count 235 K/mm3 (142-424); Red Blood Count 4.17 M/mm3 (4.60-6.20); Red Cell Distribution Width 13.7 % (11.5-17.5)
[2024-03-14 20:00] LABS: Alanine Aminotransferase 28 U/L (12-78); Albumin Level 3.9 g/dl (3.5-5.0); Albumin/Globulin Ratio 1.4 (1.1-1.8); Alkaline Phosphatase 69 U/L (38-126); Anion Gap 12.9 mEq/L (5-15); Aspartate Amino Transferase 26 U/L (17-59); Bilirubin,Total 0.4 mg/dl (0.2-1.3); Blood Urea Nitrogen 41 mg/dl (9-20); Calcium 9.6 mg/dl (8.4-10.2); Carbon Dioxide 29 mmol/L (22.0-30.0); Chloride 100 mmol/L (98-107); Chol/HDL Ratio 3.6 (1-3.5); Cholesterol 166 mg/dl (140-200); Estimated Glomerular Filt Rate 40 ml/min (>60); GFR (African American) 49 ML/MIN (>60); Globulin 2.7 g/dL (1.3-3.2); Glucose 108 mg/dl (74-100); HDL Cholesterol 46 mg/dl (40-60); Potassium 3.9 mmoL/L (3.5-5.1); Sodium 138 mmol/L (136-145); Total Protein,Serum 6.6 g/dl (6.3-8.2); Triglycerides 173 mg/dl (30-150); VLDL Cholesterol 35 mg/dL (0-40)
[2024-03-14 20:05] LABS: Hemoglobin A1C 5.7 % (4.0-6.0)
[2024-03-14 20:10] LABS: Direct LDL Cholesterol 88.56 mg/dL (100-129)
[2024-03-14 20:31] LABS: Prostate Specific Ag Screen 0.4 ng/ml (0.0-4.0); Thyroid Stimulating Hormone 0.51 uIU/mL (0.465-4.68)
== END 2024-03-14 23:59 | disposition home or self-care (01) ==
LOC: LAB.DROPOF 03-15 10:04
PROVIDERS: PCP Family Medicine; Visit Provider Family Medicine
DX: E07.9 Disorder of thyroid, unspecified (principal); I10 Essential (primary) hypertension; Z12.5 Encounter for screening for malignant neoplasm of prostate; E11.9 Type 2 diabetes mellitus without complications; E78.5 Hyperlipidemia, unspecified; Z79.84 Long term (current) use of oral hypoglycemic drugs
CPT/HCPCS: 80050; 80053; 80061; 83036; 84443; 85025; G0103

== ENCOUNTER 2024-05-15 11:35 | Outpatient (CLI) | payer MEDICARE, SELFPAY ==
[2024-05-15 12:35] VITALS: PULSE 70; PULSE 74
[2024-05-15] MEDS: ALBUTEROL 0.083% 2.5 MG/3 ML NEB IH (12:35)
== END 2024-05-15 23:59 | disposition home or self-care (01) ==
LOC: RT 11:36
PROVIDERS: PCP Family Medicine; Visit Provider Internal Medicine Pulmonary Disease
DX: R06.09 Other forms of dyspnea (principal); J44.9 Chronic obstructive pulmonary disease, unspecified; G47.33 Obstructive sleep apnea (adult) (pediatric)
CPT/HCPCS: 94060; 94640; 94726; 94729; 94762; J7613

== ENCOUNTER 2024-06-14 10:01 | Outpatient (CLI) | payer MEDICARE, SELFPAY ==
[2024-06-14 18:47] LABS: Basophils % 0.4 % (0.1-2.0); Eosinophils # 0.2 K/mm3 (0.0-0.4); Eosinophils % 2.9 % (0.1-12.0); Hematocrit 43.1 % (42.0-52.0); Hemoglobin 13.6 g/dL (14.1-18.0); Lymphocytes # 1.3 K/mm3 (0.7-4.5); Lymphocytes % 15.5 % (10-50); Mean Corpuscular HGB Conc 31.4 g/dL (31.8-35.4); Mean Corpuscular Hemoglobin 32.5 pg (27.0-31.2); Mean Corpuscular Volume 103.3 fl (80-94); Mean Platelet Volume 9.4 fl (7.4-10.4); Monocytes # 0.5 K/mm3 (0.1-1.0); Monocytes % 6.2 % (1.7-9.3); Neutrophils # 6.2 K/mm3 (1.8-7.8); Platelet Count 201 K/mm3 (142-424); Red Blood Count 4.18 M/mm3 (4.60-6.20); Red Cell Distribution Width 13.7 % (11.5-17.5); White Blood Count 8.2 K/mm3 (4.8-10.8)
[2024-06-14 19:32] LABS: Alanine Aminotransferase 33 U/L (12-78); Alkaline Phosphatase 70 U/L (38-126); Aspartate Amino Transferase 30 U/L (17-59); Bilirubin,Total 0.5 mg/dl (0.2-1.3); Blood Urea Nitrogen 37 mg/dl (9-20); Calcium 9.8 mg/dl (8.4-10.2); Chloride 104 mmol/L (98-107); Chol/HDL Ratio 3.9 (1-3.5); Cholesterol 180 mg/dl (140-200); Estimated Glomerular Filt Rate 50 ml/min (>60); GFR (African American) 61 ML/MIN (>60); Glucose 115 mg/dl (74-100); HDL Cholesterol 46 mg/dl (40-60); Potassium 4.2 mmoL/L (3.5-5.1); Sodium 138 mmol/L (136-145); Total Protein,Serum 6.5 g/dl (6.3-8.2); Triglycerides 178 mg/dl (30-150); VLDL Cholesterol 36 mg/dL (0-40)
[2024-06-14 19:34] LABS: Albumin/Globulin Ratio 1.6 (1.1-1.8); Anion Gap 9.2 mEq/L (5-15); Carbon Dioxide 29 mmol/L (22.0-30.0); Globulin 2.5 g/dL (1.3-3.2)
[2024-06-14 19:43] LABS: Direct LDL Cholesterol 101.24 mg/dL (100-129)
[2024-06-14 20:03] LABS: Thyroid Stimulating Hormone 0.57 uIU/mL (0.465-4.68)
[2024-06-16 06:43] LABS: Testosterone,Total 190 ng/dL (264-916)
== END 2024-06-14 23:59 | disposition home or self-care (01) ==
LOC: LAB.DROPOF 06-17 10:02
PROVIDERS: PCP Family Medicine; Visit Provider Family Medicine
DX: E78.5 Hyperlipidemia, unspecified (principal); I10 Essential (primary) hypertension; E78.2 Mixed hyperlipidemia; E03.9 Hypothyroidism, unspecified; I50.32 Chronic diastolic (congestive) heart failure; J98.4 Other disorders of lung; J44.9 Chronic obstructive pulmonary disease, unspecified
CPT/HCPCS: 80053; 80061; 84403; 84443; 85025

== ENCOUNTER 2024-09-11 10:25 | Outpatient (CLI) | payer MEDICARE, SELFPAY ==
[2024-09-11 18:39] LABS: Hematocrit 43.6 % (42.0-52.0); Hemoglobin 13.7 g/dL (14.1-18.0); Mean Corpuscular HGB Conc 31.4 g/dL (31.8-35.4); Mean Corpuscular Hemoglobin 31.4 pg (27.0-31.2); Red Blood Count 4.36 M/mm3 (4.60-6.20); White Blood Count 10.5 K/mm3 (4.8-10.8)
[2024-09-11 18:40] LABS: Basophils # 0.1 K/mm3 (0-0.2); Basophils % 0.5 % (0.1-2.0); Eosinophils # 0.3 K/mm3 (0.0-0.4); Eosinophils % 2.7 % (0.1-12.0); Lymphocytes # 1.2 K/mm3 (0.7-4.5); Lymphocytes % 11.5 % (10-50); Mean Platelet Volume 10.5 fl (7.4-10.4); Monocytes # 0.9 K/mm3 (0.1-1.0); Monocytes % 8.1 % (1.7-9.3); Neutrophils # 8.1 K/mm3 (1.8-7.8); Neutrophils % 76.8 % (37.0-80.0); Platelet Count 216 K/mm3 (142-424); Red Cell Distribution Width 12.8 % (11.5-17.5)
[2024-09-11 18:50] LABS: Alanine Aminotransferase 27 U/L (12-78); Albumin Level 4.1 g/dl (3.5-5.0); Albumin/Globulin Ratio 1.6 (1.1-1.8); Alkaline Phosphatase 71 U/L (38-126); Anion Gap 11.7 mEq/L (5-15); Aspartate Amino Transferase 29 U/L (17-59); Bilirubin,Total 0.5 mg/dl (0.2-1.3); Blood Urea Nitrogen 47 mg/dl (9-20); Calcium 9.7 mg/dl (8.4-10.2); Carbon Dioxide 32 mmol/L (22.0-30.0); Chloride 99 mmol/L (98-107); Chol/HDL Ratio 3.9 (1-3.5); Cholesterol 177 mg/dl (140-200); Estimated Glomerular Filt Rate 38 ml/min (>60); GFR (African American) 46 ML/MIN (>60); Globulin 2.5 g/dL (1.3-3.2); Glucose 111 mg/dl (74-100); HDL Cholesterol 45 mg/dl (40-60); Potassium 4.7 mmoL/L (3.5-5.1); Sodium 138 mmol/L (136-145); Total Protein,Serum 6.6 g/dl (6.3-8.2); Triglycerides 226 mg/dl (30-150); VLDL Cholesterol 45 mg/dL (0-40)
[2024-09-11 19:01] LABS: Direct LDL Cholesterol 92.74 mg/dL (100-129)
[2024-09-17 01:07] LABS: Free Testosterone (Direct) 6.5 pg/mL (6.6-18.1); Testosterone, Total, LC/MS 255.3 ng/dL (264.0-916.0)
== END 2024-09-11 23:59 | disposition home or self-care (01) ==
LOC: LAB.DROPOF 09-12 12:02
PROVIDERS: PCP Family Medicine; Visit Provider Family Medicine
DX: E03.9 Hypothyroidism, unspecified (principal); E78.2 Mixed hyperlipidemia
CPT/HCPCS: 80053; 80061; 84443; 85025

== ENCOUNTER 2024-10-16 12:13 | Outpatient (CLI) | payer MEDICARE, SELFPAY ==
--- NOTE | 2024-10-16 12:14 | CT_ITS ---
FINAL REPORT TECHNIQUE: Thin section axial images were obtained from the lung apices to the upper abdomen by computed tomography. Reformatted images were obtained and reviewed. This study was performed with techniques to keep radiation doses al low as reasonably achievable (ALARA). Individualized dose reduction techniques using automated exposure control or adjustment of mA and/or kV according to the patient's size were employed. CLINICAL HISTORY: lung cancer screening FORMER SMOKER QUIT 8+ YEARS AGO, 2PPD X44 YEARS COMPARISON: LDCT 03/22/2023, CT chest 09/27/2023 FINDINGS: CHEST CT LOW DOSE 69-year-old male, former smoker who quit 8 years ago, [id number] history. CTDI vol (mGy): 2.9 DLP (mGy-cm): 104.73 There is no axillary adenopathy. There is no mediastinal or hilar mass or adenopathy. Note is made of a left superior vena cava. The heart is normal in size. There is no pericardial or pleural effusion. Ground glass opacities are present in the lower lung eden bilaterally, similar to the previous exam. This may represent chronic changes of early fibrosis. No focal nodules are identified. Limited images of the upper abdomen are unremarkable. IMPRESSION: Lung-RADS category 1 S, the S for the ground glass opacities.. Recommend 12 month follow up low dose chest CT. Reviewed, Interpreted and Dictated by Micha Lazo MD Transcribed by Hannah Jessica Authenticated and [facility]
== END 2024-10-16 23:59 | disposition home or self-care (01) ==
LOC: RAD 12:14
PROVIDERS: PCP Family Medicine; Visit Provider Internal Medicine Pulmonary Disease
DX: F17.210 Nicotine dependence, cigarettes, uncomplicated (principal)
CPT/HCPCS: 71271

== ENCOUNTER 2025-03-03 09:15 | Inpatient (IN) | payer MEDICARE, SELFPAY ==
[2025-03-03] VITALS (43 sets, daily range): BP systolic 63–165; BP diastolic 44–140; PULSE 58–163; RESP 12–31; TEMP 36.6–36.9; O2SAT 76–100; BMI 50.1
--- NOTE | 2025-03-03 09:17 | ECG_ITS ---
APPROVED REPORT Exam: Resting ECG HR:149 bpm ECG Measurements Heart Rate 149 AXES QRSd 150 QRS -41 QT 347 T 139 QTc 432 Conclusion ATRIAL TACHYCARDIA WITH RAPID VENTRICULAR RESPONSE LEFT AXIS DEVIATION [QRS AXIS < -30] LEFT BUNDLE BRANCH BLOCK [120+ ms QRS DURATION, 80+ ms Q/S IN V1/V2, 85+ ms R IN I/aVL/V5/V6] ABNORMAL ECG Electronically signed by : MALACHI CANTU, 03/03/2025 15:21:45
--- NOTE | 2025-03-03 09:19 | HMH.EDGENADL ---
Discharge Plan Disposition Patient Disposition: Admitted Condition: Fair Clinical Impressions Clinical Impression: COPD exacerbation Discharge ED Provider: Bill Church Adult HPI General Chief complaint: Chest Pain Stated complaint: CP Time Seen by Provider: 03/03/25 09:19 History of Present Illness HPI narrative: The patient presents to the Emergency Department with a chief complaint of shortness of breath, abdominal swelling, dizziness, lightheadedness, and weakness. These symptoms have been gradually worsening since Monday when the patient was advised to go to the ER. The patient reports severe dyspnea, stating I can't breathe and I can't get my breath. The shortness of breath has progressed to the point where the patient couldn't even talk and now has to stop half-way to the bathroom to sit down due to breathlessness. The patient attributes the initial exacerbation to exposure to pollen and grass while working in a garden. Associated symptoms include a feeling of heaviness in the chest, though the patient denies current chest pain. The patient describes significant abdominal swelling. This symptom has been gradually worsening, with the patient noting that their weight has been increasing with each medical visit, currently at 320 pounds. The abdomen feels unusually firm and tense, which is not typical for the patient. They deny abdominal pain at this time. Dizziness, lightheadedness, and extreme weakness are also reported, with the patient stating, I'm so weak I can't move. There have been a couple of instances where the patient felt they were going to pass out. The patient reports a loss of appetite over the past 3-4 days. They have been using supplemental oxygen via nasal cannula during the day and night for the past month. The patient mentions taking a real strong water pill but notes that for about 3 days, it wasn't affecting them as usual, and they weren't urinating as frequently. Recent healthcare interactions include a high heart rate of 155 bpm noted on Monday during a blood pressure check at home. The patient was due for follow-up appointments with their cell room operator in May and another doctor on April 01 but called to request an earlier appointment due to worsening symptoms. The patient has a history of COPD, congenital solitary kidney, fluid retention requiring diuretic therapy, polycythemia requiring phlebotomy, and chronic leg and back pain. Their surgical history includes paracentesis for fluid removal and phlebotomy for polycythemia. Current medications include a strong water pill and aspirin 325 mg given during the encounter. The patient's father had a history of abdominal swelling ( Norse belly ), which the patient mentions having as well. The review of systems is positive for weakness, dizziness, lightheadedness, decreased appetite, shortness of breath, difficulty breathing, chest heaviness, abdominal bloating, decreased urination, back pain, and near-syncope. Please note that above description of symptoms, in this electronic medical record under categorization of recalled from ER triage doctor by RN are reflective of an initial nursing assessment, however, is not reflective of my full history and physical exam that was personally taken and clarified. Consequentially, this preceding description of symptoms, which may include the patient's categorized chief complaint in the EMR, do not reflect my personal clinical impression, and the ultimate description of history of present illness and patient stated complaints should be deferred to this section of the note. Unless stated otherwise or congruent with this section of the note, additional signs, symptoms, or incongruence should be interpreted as inaccurate with my clinical impression. Related Data Home Medications ?Medication ?Instructions ?Recorded ?Confirmed aspirin 81 mg tablet,delayed 81 mg PO DAILY 09/01/20 03/03/25 release (Adult Low Dose Aspirin) pantoprazole 40 mg tablet,delayed 40 mg PO HS 03/03/25 release rosuvastatin 20 mg tablet 20 mg PO HS 03/03/25 03/03/25 spironolactone 25 mg tablet 25 mg PO DAILY 03/03/25 03/03/25 Previous Rx's ?Medication ?Instructions ?Recorded tamsulosin 0.4 mg capsule (Flomax) 0.4 mg PO DAILY #30 caps 12/27/22 carvedilol 12.5 mg tablet (Coreg) 12.5 mg PO BID #180 tabs 09/11/24 dapagliflozin propanediol 10 mg 10 mg PO DAILY #90 tabs 09/11/24 tablet (Farxiga) fluticasone fur. 100 mcg-umeclid 1 inh inhalation DAILY #60 ea 09/11/24 62.5 mcg-vilant 25 mcg inhalat.powder (Trelegy Ellipta) levothyroxine 112 mcg tablet 224 mcg (2 x 112 mcg) PO DAILY 09/11/24 (Synthroid) #180 tabs lisinopril 20 mg tablet 20 mg PO DAILY #90 tabs 09/11/24 testosterone (AndroGel) 2 pump topical DAILY #75 grams 09/11/24 torsemide 100 mg tablet 50 mg (1/2 x 100 mg) PO DAILY #90 09/11/24 tabs Allergies Allergy/AdvReac Type Severity Reaction Status Date / Time No Known Allergies Allergy Verified 03/03/25 08:50 [facility] Disclaimer: The information contained in this section may have been updated after the patient was seen, as this information can be updated by other users. Medical History (Updated 03/03/25 @ 15:15 by Meliton De Leon RN) Wide-complex tachycardia Chest pain (HFpEF) heart failure with preserved ejection fraction HTN (hypertension), benign Lung nodule Restrictive lung disease COPD mixed type Dyspnea on exertion Stopped smoking with greater than 30 pack year history History of COPD Allergic rhinitis Renal cyst, right Hyperlipidemia Surgical History History of cataract surgery History of testicular surgery History of bilateral carpal tunnel release History of back surgery History of surgery on lower extremity History of colonoscopy History of tonsillectomy Family History Other Diabetes Hypertension Social History Smoking Status: Never smoker years smoked: 25 smoking status stop date: 2014 alcohol intake: never substance use type: denies use current occupational status: retired Travel in the last 8 weeks?: None household members: spouse housing: house Have you lived/traveled outside US in past 30 days?: No Contact w/someone who lives/traveled outside US past 30 days?: No Exposure to someone with infectious disease in past 14 days?: No Do you have a fever (greater than 100.4 F or 38 C)?: No Have you tested positive for COVID-19?: No Exposed to someone with COVID-19 in past 14 days?: No Do you have a sore throat?: No Do you have a cough?: No Do you have any weakness?: No Do you have any diarrhea?: No Are you experiencing any unusual bleeding?: No Do you have any muscle aches/pain?: No Do you have any abdominal pain?: No Are you experiencing loss of taste or smell?: No Other Medical History Have you received the Flu Vaccine for this season: Yes Have you received the Pneumonia Vaccine: Yes ROS Obtained: Yes other As per HPI Physical Exam General General appearance: alert Comment: Ill-appearing Head Head exam: atraumatic and normocephalic Eye Eye exam: Present normal appearance Neck Neck exam: Present normal inspection Chest Chest inspection: Present normal inspection and symmetric chest wall rise Respiratory Respiratory exam: Present normal lung sounds bilaterally; Absent respiratory distress Cardiovascular Cardiovascular exam: Present normal rhythm and tachycardia Abdominal Exam Abdominal exam: Present soft Neurological Exam Neurological exam: Present alert and oriented X3 Psychiatric Psychiatric exam: Present normal affect and normal mood Skin Skin exam: Present warm and dry Medical Decision Making Medical Records Medical records reviewed: Yes I reviewed the patient's medical records. Screening: Per USPSTF and CDC recommendations, given the prevalence of disease in our region, it is our hospital?s policy to screen for HIV and viral Hepatitis for all patients aged 18 and over and those with ongoing risk factors. Luis Inquiry Pt receiving controlled substance: No Vital Signs: 03/03/25 09:26 03/03/25 09:31 03/03/25 09:31 Temperature 97.8 F Temperature Source Oral Pulse Rate 150 H 150 H Pulse Rate [Left Radial] 163 H Respiratory Rate 20 18 Blood Pressure 165/140 H Blood Pressure [Right Arm] 163/138 H Blood Pressure Mean Blood Pressure Mean [Right Arm] 146 Blood Pressure Source Blood Pressure Position 02 Sat by Pulse Oximetry 95 99 Oxygen Delivery Method Room Air Oxygen Flow Rate (LPM) 03/03/25 10:01 03/03/25 10:02 03/03/25 10:17 Temperature Temperature Source Oral Pulse Rate 121 H 150 H 135 H Pulse Rate [Left Radial] Respiratory Rate 21 18 Blood Pressure 108/53 L 108/53 L 78/47 L Blood Pressure [Right Arm] Blood Pressure Mean Blood Pressure Mean [Right Arm] Blood Pressure Source Automatic Cuff Blood Pressure Position Supine 02 Sat by Pulse Oximetry 99 98 96 Oxygen Delivery Method Room Air Nasal Cannula Oxygen Flow Rate (LPM) 4 03/03/25 10:22 03/03/25 10:36 03/03/25 10:41 Temperature Temperature Source Pulse Rate 149 H 70 Pulse Rate [Left Radial] Respiratory Rate 25 H 31 H 21 Blood Pressure 108/50 L 124/61 84/53 L Blood Pressure [Right Arm] Blood Pressure Mean Blood Pressure Mean [Right Arm] Blood Pressure Source Blood Pressure Position 02 Sat by Pulse Oximetry 96 97 76 L Oxygen Delivery Method Nasal Cannula Nasal Cannula Nasal Cannula Oxygen Flow Rate (LPM) 4 4 4 03/03/25 10:43 03/03/25 10:46 03/03/25 10:49 Temperature Temperature Source Pulse Rate 65 66 62 Pulse Rate [Left Radial] Respiratory Rate 22 25 H 24 Blood Pressure 92/49 L 79/52 L 74/47 L Blood Pressure [Right Arm] Blood Pressure Mean Blood Pressure Mean [Right Arm] Blood Pressure Source Blood Pressure Position 02 Sat by Pulse Oximetry 90 L 94 L 95 Oxygen Delivery Method Nasal Cannula Nasal Cannula Nasal Cannula Oxygen Flow Rate (LPM) 4 4 4 03/03/25 10:52 03/03/25 10:56 03/03/25 10:59 Temperature Temperature Source Pulse Rate 61 63 62 Pulse Rate [Left Radial] Respiratory Rate 18 20 20 Blood Pressure 78/53 L 74/52 L 77/53 L Blood Pressure [Right Arm] Blood Pressure Mean Blood Pressure Mean [Right Arm] Blood Pressure Source Blood Pressure Position 02 Sat by Pulse Oximetry 94 L 94 L 95 Oxygen Delivery Method Nasal Cannula Nasal Cannula Nasal Cannula Oxygen Flow Rate (LPM) 4 4 4 03/03/25 11:00 03/03/25 11:04 03/03/25 11:05 Temperature Temperature Source Pulse Rate 61 64 65 Pulse Rate [Left Radial] Respiratory Rate 16 17 21 Blood Pressure 73/52 L 79/55 L 80/56 L Blood Pressure [Right Arm] Blood Pressure Mean Blood Pressure Mean [Right Arm] Blood Pressure Source Blood Pressure Position 02 Sat by Pulse Oximetry 95 94 L 96 Oxygen Delivery Method Nasal Cannula Nasal Cannula Nasal Cannula Oxygen Flow Rate (LPM) 4 4 4 03/03/25 11:08 03/03/25 11:31 03/03/25 11:51 Temperature Temperature Source Pulse Rate 65 66 Pulse Rate [Left Radial] Respiratory Rate 18 24 18 Blood Pressure 85/63 L 88/64 L 97/49 L Blood Pressure [Right Arm] Blood Pressure Mean Blood Pressure Mean [Right Arm] Blood Pressure Source Blood Pressure Position 02 Sat by Pulse Oximetry 97 96 99 Oxygen Delivery Method Nasal Cannula Nasal Cannula Nasal Cannula Oxygen Flow Rate (LPM) 4 2 2 03/03/25 12:00 03/03/25 12:05 03/03/25 12:20 Temperature Temperature Source Pulse Rate 64 64 63 Pulse Rate [Left Radial] Respiratory Rate 20 18 15 Blood Pressure 80/45 L 79/44 L 81/50 L Blood Pressure [Right Arm] Blood Pressure Mean Blood Pressure Mean [Right Arm] Blood Pressure Source Blood Pressure Position 02 Sat by Pulse Oximetry 100 98 99 Oxygen Delivery Method Nasal Cannula Nasal Cannula Nasal Cannula Oxygen Flow Rate (LPM) 2 2 2 03/03/25 12:39 03/03/25 13:00 03/03/25 13:29 Temperature Temperature Source Pulse Rate 60 65 65 Pulse Rate [Left Radial] Respiratory Rate 17 13 12 Blood Pressure 81/57 L 77/57 L 89/64 L Blood Pressure [Right Arm] Blood Pressure Mean Blood Pressure Mean [Right Arm] Blood Pressure Source Blood Pressure Position 02 Sat by Pulse Oximetry 97 99 100 Oxygen Delivery Method Nasal Cannula Oxygen Flow Rate (LPM) 2 03/03/25 14:00 03/03/25 14:38 03/03/25 14:53 Temperature Temperature Source Pulse Rate Pulse Rate [Left Radial] Respiratory Rate 16 15 17 Blood Pressure 89/58 L 63/48 L 109/76 L Blood Pressure [Right Arm] Blood Pressure Mean 66 Blood Pressure Mean [Right Arm] Blood Pressure Source Blood Pressure Position 02 Sat by Pulse Oximetry Oxygen Delivery Method Oxygen Flow Rate (LPM) 03/03/25 15:00 03/03/25 15:01 03/03/25 15:09 Temperature 98.2 F 97.9 F Temperature Source Oral Pulse Rate 64 72 Pulse Rate [Left Radial] Respiratory Rate 23 24 18 Blood Pressure 109/76 L 106/77 L 106/77 L Blood Pressure [Right Arm] Blood Pressure Mean Blood Pressure Mean [Right Arm] Blood Pressure Source Automatic Cuff Blood Pressure Position Supine 02 Sat by Pulse Oximetry Oxygen Delivery Method Room Air Nasal Cannula Oxygen Flow Rate (LPM) 2 Lab Data Lab Results 03/03/25 12:26: Troponin I 0.26 H 03/03/25 14:06: VBG pH 7.29 L, VBG pCO2 51.0, VBG pO2 85.5 H, VBG HCO3 24.1, VBG Total CO2 25.7, VBG O2 Saturation 95.6 H, VBG Base Excess -2.4, VBG Lactic Acid 2.9 H 03/03/25 Unknown 03/03/25 Unknown Orders (Tests/Meds): ED MEDICATIONS Generic Name Dose Route Start Last Admin Trade Name Narinderq PRN Reason Stop Dose Admin Norepinephrine Bitartrate 8 mg 258 mls @ 3.87 mls/hr 03/03/25 10:50 03/03/25 14:53 / Sodium Chloride IV 04/02/25 10:49 8 mcg/min .Q24H ROLY 15.48 mls/hr Protocol Titration 2 MCG/MIN Sodium Chloride 10 ml 03/03/25 14:10 Sodium Chloride 0.9% 10ml Flush Syringe IV 04/02/25 14:09 NEEDED PRN Maintain IV Site Discontinued Medications Generic Name Dose Route Start Last Admin Trade Name Narinderq PRN Reason Stop Dose Admin Aspirin 325 mg 03/03/25 09:19 03/03/25 09:42 Aspirin 325mg Tablet PO 03/03/25 09:20 325 mg ONCE ONE Administration Bumetanide 2 mg 03/03/25 14:28 03/03/25 14:43 Bumetanide 1mg/4ml Vial IV 03/03/25 14:29 2 mg ONCE ONE Administration Enoxaparin Sodium 150 mg 03/03/25 14:45 03/03/25 14:42 Enoxaparin 150mg/Ml Syringe SUBCUT 03/03/25 14:46 150 mg ONCE ONE Administration Lactated Ringer's 1,000 mls @ 999 mls/hr 03/03/25 10:20 03/03/25 10:25 Lactated Ringer's 1000 Ml Bag IV 03/03/25 11:20 999 mls/hr .Q1H1M ONE Administration Azithromycin 500 mg/ Sodium 250 mls @ 250 mls/hr 03/03/25 13:15 03/03/25 13:35 Chloride IV 03/03/25 14:14 250 mls/hr ONCE ONE Administration Ceftriaxone Sodium 2 gm/ 100 mls @ 200 mls/hr 03/03/25 13:45 03/03/25 14:01 Sodium Chloride IV 03/03/25 14:14 200 mls/hr ONCE ONE Administration Iopamidol 80 ml 03/03/25 11:43 03/03/25 11:44 Iopamidol-370 (76%);100ml Bottle IV 03/03/25 11:44 80 ml ONCE ONE Administration Methylprednisolone Sodium Succinate 125 mg 03/03/25 13:33 03/03/25 14:01 Methylprednisolone Sod Succ 125mg Vial IV 03/03/25 13:34 125 mg ONCE ONE Administration Propofol 40 mg 03/03/25 12:45 03/03/25 10:38 Propofol 10 Mg/Ml 100ml Infusion Bottle IV 03/03/25 12:46 40 mg ONCE ONE Administration Rivaroxaban 10 mg 03/03/25 13:40 03/03/25 14:02 Rivaroxaban 10mg Tablet PO 03/03/25 13:41 10 mg ONCE ONE Administration Sodium Chloride 50 ml 03/03/25 11:43 03/03/25 11:44 0.9 % Sodium Chloride 50 Ml Vial IV 03/03/25 11:44 50 ml ONCE ONE Administration Sodium Chloride 10 ml 03/03/25 11:43 03/03/25 11:44 Sodium Chloride 0.9% 10ml Syr (Rad Only) IV 03/03/25 11:44 10 ml ONCE ONE Administration ORDERS Category Date Time Status CT angio abdomen pelvis Stat Cat Scan 03/03/25 10:48 Completed CTA Chest [CT angio chest PE protocol] Stat Cat Scan 03/03/25 10:47 Completed XR chest portable Stat Exams 03/03/25 09:20 Completed BNP [NT Pro Brain Natriuretic Pep.] Stat Lab 03/03/25 Completed CBC w/Auto Diff [Complete Blood Count Auto Diff] Stat Lab 03/03/25 Completed CMP [Comprehensive Metabolic Panel] Stat Lab 03/03/25 Completed Free T4 (Free Thyroxine) Stat Lab 03/03/25 Completed MAG [Magnesium] Stat Lab 03/03/25 Completed PT INR [Prothrombin Time INR] Stat Lab 03/03/25 14:39 Completed PTT [Activated Partial Thrombo Time] Stat Lab 03/03/25 14:39 Completed TSH [Thyroid Stimulating Hormone] Stat Lab 03/03/25 Completed Troponin I Q3H Lab 03/03/25 Completed Troponin I Q3H Lab 03/03/25 12:26 Completed Blood Culture Stat Micro 03/03/25 14:00 Received VBG [Venous Blood Gas] Stat RT 03/03/25 14:06 Completed Medical Decision Narrative: Patient with history and exam per above presenting for evaluation of shortness of breath, tachycardia, reported abdominal distention Diagnoses considered include tachydysrhythmia secondary to underlying infection, pulmonary embolism, cardiac ischemia, CHF. Differential also includes dissection, COPD exacerbation, pneumonia, among others. EKG was independently reviewed by me significant for atrial fibrillation with rapid ventricular response, no evidence of STEMI or CARL. Patient arrives normotensive however dyspneic, complaining of chest pain, with abdominal distention. Distant heart and lung sounds secondary to habitus however no wheezing at time of initial evaluation. Workup included CBC, CMP, coags, VBG, mag, Phos, serial troponins, TSH, free T4. Imaging ordered included chest x-ray, CTA chest, CTA abdomen pelvis after shared decision making with patient and spouse at bedside in the setting of solitary kidney and CKD. Labs independently visualized and interpreted by me significant for creatinine 2.10, elevated from baseline, BUN 54, hypomagnesemia, leukocytosis of 12.2, BNP 8470, initial troponin 0.26. Given patient's anginal symptoms as well as clinical evidence of myocardial injury and pulmonary edema after shared decision making patient will be cardioverted for evidence of unstable tachydysrhythmia. Synchronized cardioversion was performed at 200 J after administration of 40 mg propofol. Patient converted to sinus rhythm. CT imaging was obtained following cardioversion which revealed no acute surgical pathology, however evidence of bibasilar consolidative processes and bilateral pleural effusions. At this time leading diagnosis is most consistent with COPD exacerbation, pneumonia, precipitating tachydysrhythmia. Patient, following administration of propofol and cardioversion, became hypotensive and was bridged with norepinephrine infusion which was down titrated. Ceftriaxone and azithromycin were administered for community-acquired pneumonia, severe. Patient was also given Solu-Medrol and 10 mg Eliquis p.o. due to concern for greater than 48 hours of his preceding tachydysrhythmia requiring cardioversion. Patient will benefit from further workup and management on inpatient basis and was accepted for admission by hospitalist. Procedures Miscellaneous Procedure Procedure Performed: Synchronized cardioversion was performed after verbal consent was obtained by patient with family member at bedside present and involved in discussion. Risks and benefits were discussed including resolution of tachydysrhythmia, symptomatic control, and risk of myocardial stunning, thromboembolism, asystole, hypotension, airway compromise, disability, , among others. A timeout was performed prior to cardioversion. 40 mg of propofol IV was administered prior to synchronized cardioversion at 200 J. Patient converted to sinus rhythm and had no airway compromise during or after procedure. Patient did suffer hypotension following cardioversion which was treated with norepinephrine infusion to maintain MAP greater than 65. This slowly resolved throughout ED stay. Critical Care Critical Care Time Critical Care Time: Yes Attestation: On 03/03/25, the high probability of a clinically significant, sudden or life threatening deterioration of the following system(s) required my full and direct attention, intervention and personal management. The time I documented below is in addition to time spent performing reported procedures but includes the following listed in this critical care notation. Total Time Total Critical Care Time: 30
--- OUTSIDE RECORDS SUMMARY | 2025-03-03 09:19 | XMS_ITS | Clinical Summary ---
Author Organization [facility] Address [address] [place] [address] Phone Care Team Providers Care Wrapping Checker Name Role Phone Eduarda Rdz Unavailable [phone] Conditions or Problems Problem Name Problem Code Onset Date Status Entry Date Provider Comment Standard Description Annotate FOLLOW-UP EXAMINATION, AFTER SURGERY NEC Z09 (ICD-10-CM ) 05/16 Active 05/16 Naun Javed MD Encounter for follow-up examination after completed treatment for conditions other than malignant neoplasm HERNIATED LUMBAR DISC 836090456 (SNOMED CT) 04/22 Active 04/22 Naun Javed MD Prolapsed lumbar intervertebral disc SPONDYLOSIS, 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 (ICD-10-CM ) 02/28 Active 02/28 Naun Javed MD Spondylosis without myelopathy or radiculopathy, cervical region Take Note of HEADACHE 07159380 (SNOMED CT) 02/28 Active 02/28 Maggie Rich MA Headache Take Note of JOINT STIFFNESS 90744747 (SNOMED CT) 02/28 Active 02/28 Maggie Rich MA Joint stiffness Take Note of MUSCLE CRAMPS 22483181 (SNOMED CT) 02/28 Active 02/28 Maggie Rich MA Cramp Take Note of BACK PAIN 637696210 (SNOMED CT) 02/28 Active 02/28 Maggie Rich MA Backache Take Note of COUGH 87519941 (SNOMED CT) 02/28 Active 02/28 Maggie Rich MA Cough Take Note of MALAISE AND FATIGUE 779201102 (SNOMED CT) 02/28 Active 02/28 Maggie Rich MA Malaise and fatigue Take Note of SWEATING 118376652 (SNOMED CT) 02/28 Active 02/28 Maggie Rich MA Sweating Take Note of THYROID DISEASE, HX OF 030279848 (SNOMED CT) 02/28 Active 02/28 Maggie Rich MA H/O: thyroid disorder Take Note of HYPERCHOLESTE ROLEMIA 97415075 (SNOMED CT) 02/28 Active 02/28 Maggie Rich MA Hypercholesterole hannah Medications Medication Instructions Start Date Stop Date Generic Name [facility] Provider ST ARZATE ASPIRIN 81 MG TBE -[facility] ASPIRIN [id number] Naun Javed MD CRESTOR 20 MG TABS -[place] ROSUVASTATIN CALCIUM [id number] Naun Javed MD AMLODIPINE BESYLATE 10 MG TABS -[place] AMLODIPINE BESYLATE [id number] Naun Javed MD BENAZEPRIL HCL 40 MG TABS - [place] HCL [id number] Naun Javed MD LEVOTHYROXINE SODIUM 125 MCG TABS - LEVOTHYROXINE SODIUM [id number] Naun Javed MD OXYCODONE-ACETAMI NOPHEN 10-325 MG TABS -[place] OXYCODONE-ACETAMI NOPHEN [id number] Naun Javed MD SPIRONOLACTONE 25 MG TABS -[place] SPIRONOLACTONE [id number] Naun Javed MD PREDNISONE 10 MG TABS -[place] PREDNISONE [id number] Naun Javed MD AMLODIPINE BESY-BENAZEPRIL HCL 5-20 MG CAPS -[place] AMLODIPINE BESY-BENAZEPRIL HCL [id number] Naun Javed MD ROXICET 5-325 MG/5ML ORAL SOLUTION -[place] OXYCODONE-ACETAMI NOPHEN [id number] Naun Javed MD BISOPROLOL FUMARATE TABS -[place] BISOPROLOL FUMARATE TABS [id number] Naun Javed MD SYNTHROID TABS [facility] LEVOTHYROXINE SODIUM TABS [id number] Naun Javed MD CRESTOR 20 MG TABS [place] ROSUVASTATIN CALCIUM [id number] Naun Javed MD AMLODIPINE BESY-BENAZEPRIL HCL 5-20 MG CAPS [place] AMLODIPINE BESY-BENAZEPRIL HCL [id number] Maggie Rich MA ROXICET 5-325 MG/5ML ORAL SOLUTION [facility] OXYCODONE-ACETAMI NOPHEN [id number] Maggie Rich MA BISOPROLOL FUMARATE TABS [facility] BISOPROLOL FUMARATE TABS [id number] Maggie Rich MA SYNTHROID TABS [facility] LEVOTHYROXINE SODIUM TABS [id number] Maggie Rich MA CRESTOR 20 MG TABS [facility] ROSUVASTATIN CALCIUM [id number] Maggie Rich MA Medications Administered No information available. Allergies, Adverse Reactions, Alerts Observed no known allergies at Results Date Name Value Unit Range Flag Description Lab Report: Auto Diff, BMP, BMP, CBC MPV 7.7 fL 6.8-10.8 MPV PLATELET CNT 275 10*3/uL 144-423 Platelet RDW 12.8 % 11.5-15.0 Erythrocyte distribution width [Ratio] by Automated count MCHC RBC 33.9 g/dL 32.1-35.3 MCHC MCH 31.6 pg 27.0-34.3 MCH [Entiti c mass] by Automated count MCV 93.2 fL 82.5-99.8 MCV [Entiti c volume] by Automated count HCT 46.5 % 38.9-51.6 Hematocrit [Volume Fraction] of Blood by Automated count HGB 15.8 g/dL 13.5-17.1 Hemoglobin [Mass/volume] in Blood RBC _ 4.99 10^6/MICROLI 10*6/uL 4.30-5.[address] BLOOD 17.5 10*3/uL 4.0-11.0 H WBC GFR >60 mL/min Glomerular fi ltration rate/1.73 sq M.predicted among non-blacks [Volume Rate/Area] in Serum, Plasma or Blood by Creatinine-based formula (MDRD) GFRAA >60 mL/min GFR Afr Am CREATININE 0.89 mg/dL 0.67-1.30 Creatini ne [Mass/volume] in Serum or Plasma BUN 22 mg/dL 6-20 H Urea nitrogen [Mass/volume] in Serum or Plasma GLUCOSE SER 111 mg/dL 74-100 H Glucose [ Mass/volume] in Serum or Plasma CALCIUM 9.7 mg/dL 8.6-10.2 Calcium [Moles/volume] in Serum or Plasma ANIONGAP 10 mmol/L 7-16 Anion Gap CO2 TOTAL 27 mmol/L 22-29 Total CO2 CHLORIDE 102 mmol/L 98-107 Chloride [Moles/volume] in Serum or Plasma K BF 4.4 mmol/L 3.5-5.0 Potassium NA BF 139 mmol/L 136-145 Sodium ABSOLUTE BAS 0.0 10*3/uL 0.0-0.2 Basophil s [#/volume] in Blood EOS ABSLT 0.1 10*3/uL 0.0-0.5 Eosinophils [#/volume] in Blood ABSOLUTE MON 1.0 10*3/uL 0.0-1.3 Monocyte s [#/volume] in Blood ABS LYMPHOCY 1.3 10*3/uL 0.6-4.8 Lymph# ABS NEUTROPH 15.1 10*3/uL 1.8-7.7 H Neutroph ils [#/volume] in Blood BASOPHIL % 0.1 % Baso Perce nt % EOS AUTO 0.4 % Eosinophil s/100 leukocytes in Blood by Automated count MONOCYTE % 5.7 % Monocytes/ 100 leukocytes in Blood by Automated count LYMPHS % 7.5 % Lymph Percen t PMN % 86.3 % Neut Percent Plan of Care Type Date Detail Pending order Metabolic Panel, Basic Pending order CBC Diff Pending order EKG Procedures No information available. Vital Signs Date Name Value Unit Description Height 67 [in_us] height E&M Weight Measured 250 [lb_av] weight E& M Weight Measured 250 [lb_av] weight E& M BMI (Body Mass Index) 39.15 kg/m2 Bod y Mass Index (Ratio) BP Diastolic 100 mm[Hg] blood pressu re, diastolic BP Systolic 137 mm[Hg] blood pressur e, systolic Body Temperature 97.5 [degF] temperat ure E&M Heart Rate 77 /min pulse rate Respiratory Rate 18 /min respirat ory rate E&M Immunizations No information available. Advance Directives No information available.
--- OUTSIDE RECORDS SUMMARY | 2025-03-03 09:19 | XMS_ITS | Clinical Summary ---
Author Organization [facility] Address [facility] [address] [facility] [place] [address] Phone Care Team Providers Care Cco Name Role Phone Vilma Moreno MD, Page Primary Care Provider + Allergies No known active allergies Medications rosuvastatin (CRESTOR) 20 mg tablet Take 20 mg by mouth daily. Active aspirin 81 mg tablet Take by mouth daily. Active benazepril (LOTENSIN) 40 mg tablet Take 40 mg by mouth daily. Active levothyroxine (SYNTHROID) 112 mcg Take 112 mcg by mouth daily. Active amLODIPine (NORVASC) 10 mg tablet Take 10 mg by mouth daily. Active omeprazole (PRILOSEC) 20 mg Take 20.6 mg by mouth daily. Active Active Problems Problem Noted Date Diagnosed Date Carpal tunnel syndrome 10/18/2012 CTS (carpal tunnel syndrome) 10/03/2012 Surgical History Surgery Date Site/Laterality Comments KNEE SURGERY arthroscopy - left knee JOINT REPLACEMENT left knee TESTICLE SURGERY TONSILLECTOMY COLONOSCOPY EYE SURGERY left cataract CARPAL TUNNEL RELEASE 10/03/2012 Left LEFT CARPAL TUNNEL RELEASE; Surgeon: Andrés Odom MD; Location: [facility]; Service: Hand CARPAL TUNNEL RELEASE 10/25/2012 Hand/Right RIGHT CARPAL TUNNEL RELEASE ; Surgeon: Andrés Odom MD; Location: [facility]; Service: Hand Medical History Medical History Date Comments Hypertension Hyperlipidemia Heartburn Diaphragmatic hernia without mention of obstruct ion or gangrene Osteoarthritis Thyroid disease Motion sickness Family History Medical History Relation Name Comments Diabetes Father Kidney Disease Father Diabetes Mother Heart Disease Mother Relation Name Status Comments Father Mother Social History Tobacco Use Types Packs/Day Years Used Date Smoking Tobacco: Some Days Cigarettes Smokeless Tobacco: Current Snuff, Chew Comments:2-3 cigs per day / dip Alcohol Use Standard Drinks/Week Comments Yes 14 (1 standard drink = 0.6 oz pu re alcohol) Occasional Sex and Gender Information Value Date Recorded Sex Assigned at Not on file Legal Sex Male 6:44 AM EDT Gender Identity Not on file Sexual Orientation Not on file Obstetrics History Last Filed Vital Signs Vital Sign Reading Time Taken Comments Blood Pressure 114/73 10/25/2012 9:40 AM EST Pulse 58 10/25/2012 9:40 AM EST Temperature 36.7 C (98 F) 10/25/2012 9:40 AM EST Respiratory Rate 20 10/25/2012 9:40 AM EST Oxygen Saturation 96% 10/25/2012 9:40 AM EST Inhaled Oxygen Concentration - - Weight 113.7 kg (250 lb 9 oz) 10/25/2012 8:20 AM EST Height 170.2 cm (5' 7 ) 10/22/2012 2:14 PM EST Body Mass Index 39.24 10/22/2012 2:14 PM EST Plan of Treatment Health Maintenance Due Date Last Done Comments Annual Wellness Exam 01/17/1958 Hepatitis C Screening 01/17/1974 DTaP/TDaP/Td (1 - Tdap) 01/17/1975 Cologuard 01/17/2001 Colon Cancer Screening 01/17/2001 Colonoscopy 01/17/2001 FIT 01/17/2001 Sigmoidoscopy 01/17/2001 Virtual Colonography 01/17/2001 Pneumococcal Vaccine 50+ (1 of 1 - PCV) 01/17/2006 Zoster (1 of 2) 01/17/2006 COVID-19 Vaccine ( - 2023-2 5 season) 2024 Influenza Vaccine (Season Ended) 2025 Hepatitis B Vaccine Aged Out No longe r eligible based on patient's age to complete this topic Meningococcal B Vaccine Aged Out No l onger eligible based on patient's age to complete this topic Insurance PPO on file Care Teams Cco Relationship Specialty Start Date End Date Josemanuel Esparza MD [address] [place] [phone] PCP - General Family Medicine 12/01/11
--- OUTSIDE RECORDS SUMMARY | 2025-03-03 09:19 | XMS_ITS | Clinical Summary ---
Author Organization [facility] Address [address] [place] [address] Care Team Providers Care Weighing Station Operator Name Role Phone Mikie Bermudez MD Primary Care Provider [phone] Social History Tobacco Use Types Packs/Day Years Used Date Smoking Tobacco: Never Assessed Sex and Gender Information Value Date Recorded Sex Assigned at Not on file Legal Sex Male 7:34 PM EDT Gender Identity Not on file Sexual Orientation Not on file Last Filed Vital Signs Vital Sign Reading Time Taken Comments Blood Pressure 140/80 03/22/2023 2:10 PM EDT Pulse 68 03/22/2023 2:10 PM EDT Temperature - - Respiratory Rate - - Oxygen Saturation - - Inhaled Oxygen Concentration - - Weight 137 kg (303 lb) 03/22/2023 2:10 PM EDT Height 170.2 cm (5' 7 ) 03/22/2023 2:10 PM EDT Body Mass Index 47.46 03/22/2023 2:10 PM EDT Plan of Treatment Health Maintenance Due Date Last Done Comments [facility]-Depression Screening 1955 [facility]-Hepatitis C Screening 1955 [facility]-Medicare Annual Wellness (AWV) 1955 [facility]-/Child/Adol SDOH Screenings 1955 [facility]-Obesity Intervention 01/17/1962 [facility]- SDOH Screenings 01/17/1974 [facility]-Adult SDOH Screenings 01/17/1974 [facility]-DTaP,Tdap,and Td Vaccine s (1 - Tdap) 01/17/1975 CT Colonography 01/17/2001 Colonoscopy 01/17/2001 FIT-DNA 01/17/2001 FIT 01/17/2001 FOBT 01/17/2001 Sigmoidoscopy 01/17/2001 [facility]-Colorectal Cancer Screening 01/17/2001 [facility]-Zoster Vaccines (1 of 2) 01/17/2006 [facility]-RSV Vaccine: 60+ Years o r (1 - Risk 60-74 years 1-dose series) 2016 [facility]-Pneumococcal Vaccine: 50 + Years (2 of 2 - PCV) 08/10/2021 08/10/2020 [id number] Vaccine (4 - 2023- season) 2024 07/13/2022, 08/04/2021, 11/30/2020 [facility]-Influenza Vaccine (Seaso n Ended) 2025 08/10/2020, 06/26/2017, 06/25/2012 HPV Vaccines Aged Out No longer eligi ble based on patient's age to complete this topic [facility]-HIB Vaccines Aged Out No longer e ligible based on patient's age to complete this topic [facility]-Hepatitis A Vaccines Aged Out No longer eligible based on patient's age to complete this topic [facility]-IPV Vaccines Aged Out No longer e ligible based on patient's age to complete this topic [facility]-Rotavirus Vaccines Aged Out No lo nger eligible based on patient's age to complete this topic [place] [address] [place] [address] MEDICARE Care Teams Weighing Station Operator Relationship Specialty Start Date End Date Mikie Bermudez MD PCP - General 02/05/21
--- OUTSIDE RECORDS SUMMARY | 2025-03-03 09:19 | XMS_ITS | Clinical Summary ---
Author Organization [facility] Address [address] [place] [id number] Care Team Providers Care Heater Operator Name Role Phone Mikie Bermudez MD Primary Care Provider [phone] Andrés Mansfield MD Unavailable Allergies No known active allergies Medications aspirin 81 mg Tablet, Delayed Release (E.C.) Take 81 mg by mouth daily. Active carvediloL (COREG) 12.5 mg Tablet Take 12.5 mg by mouth 2 times daily (with meals). Active furosemide (LASIX) 20 mg tablet Take 40 mg by mouth 2 times daily. Active levothyroxine (SYNTHROID) 112 mcg tablet Take 112 mcg by mouth daily. 2 tabs daily Active lisinopriL (PRINIVIL, ZESTRIL) 20 mg tablet Take 20 mg by mouth daily. Active pantoprazole (PROTONIX) 40 mg Tablet, Delayed Release (E.C.) Take 40 mg by mouth daily. Active rosuvastatin (CRESTOR) 20 mg Tablet Take by mouth every evening. Active spironolactone (ALDACTONE) 50 mg tablet Take 50 mg by mouth daily. Active tamsulosin (FLOMAX) 0.4 mg sustained release capsule Take 0.4 mg by mouth nightly at bedtime. Active testosterone cypionate 200 mg/mL Kit by Intramuscular route. Active Active Problems Problem Noted Date Diagnosed Date Congestive heart failure, un specified HF chronicity, unspecified heart failure type ([facility]) 01/26/2023 Chronic systolic congestive heart failure ([facility]) 01/26/2023 Hypoxia 01/26/2023 Mucopurulent chronic bronchitis ([facility]) 2022 Class 3 severe obesity due t o excess calories with serious comorbidity and body mass index (BMI) of 45.0 to 49.9 in adult 01/26/2023 Polycythemia 01/26/2023 LBBB (left bundle branch block) 01/26/2023 History of tobacco abuse 01/26/2023 Family history of premature CAD 01/26/2023 Hypothyroidism, unspecified type 01/26/2023 Family History Medical History Relation Name Comments Heart Surgery Father Diabetes Mother Heart Attack Mother Relation Name Status Comments Father Mother Social History Tobacco Use Types Packs/Day Years Used Date Smoking Tobacco: Never Passive Smoke Exposure: Never Smokeless Tobacco: Never Tobacco Cessation:Counseling Given: No Alcohol Use Standard Drinks/Week Comments Yes 1 (1 standard drink = 0.6 oz pur e alcohol) Sex and Gender Information Value Date Recorded Sex Assigned at Not on file Legal Sex Male 1:04 PM EDT Gender Identity Not on file Sexual Orientation Not on file Last Filed Vital Signs Vital Sign Reading Time Taken Comments Blood Pressure 100/80 01/26/2023 11:40 AM EDT Pulse 61 01/26/2023 11:37 AM EDT Temperature - - Respiratory Rate - - Oxygen Saturation - - Inhaled Oxygen Concentration - - Weight 136.1 kg (300 lb) 01/26/2023 11:37 AM EDT Height 167.6 cm (5' 6 ) 01/26/2023 11:37 AM EDT Body Mass Index 48.42 01/26/2023 11:37 AM EDT Plan of Treatment Health Maintenance Due Date Last Done Comments Cologuard 1955 Colonoscopy 1955 Colorectal Cancer Screening 1955 FIT 1956 Lipid Monitoring 01/17/1973 Tetanus Vaccination (Every 10 Years) 01/17/1974 Hepatitis C Virus (HCV) Screening 01/17/1977 Pneumococcal Vaccine: 50+ Years (1 of 1 - PCV) 006 Zoster-RZV(Shingrix) (1 of 2) 01/17/2006 RSV Vaccines (1 - Risk 60-74 years 1-dose series) 12/25 Fall Risk Assessment 01/17/2021 COVID-19 Vaccine ( - season) 2024 Advance Care Planning 09/25/2024 Depression Screening 09/25/2024 Influenza Vaccination (Season Ended) 2025 Insurance [facility] MEDICARE MEDICAID [place] Care Teams Heater Operator Relationship Specialty Start [place] [address] [place] [address] PCP - General Family Medicine 01/25/23 Andrés Mansfield MD [address] [facility] [address] [place] [address] Interventional Cardiology 01/26/23
--- NOTE | 2025-03-03 09:20 | XR_ITS ---
FINAL REPORT CLINICAL HISTORY: chest pain/tachycardia COMPARISON: None FINDINGS: The lungs are underinflated. Film was obtained in lordotic positioning. The heart size is normal. The mediastinum is normal. Mild scar or atelectasis is noted in the lung bases. There are no pleural effusions. There is no pneumothorax. There is no osseous abnormality. IMPRESSION: Mild bibasilar scar or atelectasis. Reviewed, Interpreted and Dictated by Micha Lazo MD Transcribed by Altagracia Dunbar Authenticated and [facility]
--- NOTE | 2025-03-03 09:23 | ECG_ITS ---
APPROVED REPORT Exam: Resting ECG HR:147 bpm ECG Measurements Heart Rate 147 AXES QRSd 140 QRS -12 QT 319 T 163 QTc 403 Conclusion UNCERTAIN REGULAR RHYTHM INTRAVENTRICULAR CONDUCTION DELAY [130+ ms QRS DURATION] ANTEROSEPTAL MYOCARDIAL INFARCTION , PROBABLY OLD [40+ ms Q WAVE IN V1-V4] Electronically signed by : MALACHI CANTU, 03/03/2025 15:22:04
[2025-03-03 09:31] LABS: Basophils % 0.3 % (0.1-2.0); Eosinophils # 0.1 Kmm3 (0.0-0.4); Eosinophils % 1.1 % (0.1-12.0); Hematocrit 40.6 % (42.0-52.0); Hemoglobin 13.2 g/dL (14.1-18.0); Immature Granulocytes # 0.05 10^3uL; Immature Granulocytes % 0.4 %; Lymphocytes # 1.2 K/mm3 (0.7-4.5); Lymphocytes % 9.5 % (10-50); Mean Corpuscular HGB Conc 32.5 g/dL (31.8-35.4); Mean Corpuscular Hemoglobin 31.8 pg (27.0-31.2); Mean Corpuscular Volume 97.8 fl (80-94); Mean Platelet Volume 10.8 fl (7.4-10.4); Monocytes # 0.9 K/mm3 (0.1-1.0); Monocytes % 7.7 % (1.7-9.3); Neutrophils # 9.9 K/mm3 (1.8-7.8); Nucleated Red Blood Cells # 0 10^3/uL; Nucleated Red Blood Cells % 0 %; Platelet Count 213 K/mm3 (142-424); Red Blood Count 4.15 M/mm3 (4.60-6.20); Red Cell Distribution Width 14.3 % (11.5-17.5); Red Cell Distribution Width-SD 50.4 fL; White Blood Count 12.2 K/mm3 (4.8-10.8)
[2025-03-03 09:39] LABS: Magnesium 2.5 mg/dl (1.6-2.3)
[2025-03-03 09:40] LABS: Alanine Aminotransferase 51 U/L (12-78); Albumin Level 3.7 g/dl (3.5-5.0); Albumin/Globulin Ratio 1.3 (1.1-1.8); Alkaline Phosphatase 122 U/L (38-126); Anion Gap 10.9 mEq/L (5-15); Aspartate Amino Transferase 39 U/L (17-59); Blood Urea Nitrogen 54 mg/dl (9-20); Calcium 9.2 mg/dl (8.4-10.2); Carbon Dioxide 28 mmol/L (22.0-30.0); Chloride 104 mmol/L (98-107); Creatinine Clearance Estimated 31 mL/min (50-200); Estimated Glomerular Filt Rate 31 ml/min (>60); GFR (African American) 38 ML/MIN (>60); Globulin 2.8 g/dL (1.3-3.2); Glucose 122 mg/dl (74-100); Potassium 3.9 mmoL/L (3.5-5.1); Sodium 139 mmol/L (136-145); Total Protein,Serum 6.5 g/dl (6.3-8.2)
[2025-03-03] MEDS: ASPIRIN 325MG TABLET 325 MG PO (09:42)
[2025-03-03 09:52] LABS: NT Pro Brain Natriuretic Pep. 8470 pg/mL (0-125)
[2025-03-03 09:55] LABS: Troponin I 0.26 ng/ml (0.00-0.034)
[2025-03-03 10:00] LABS: Free T4 (Free Thyroxine) 1.74 ng/dl (0.78-2.19)
[2025-03-03 10:11] LABS: Thyroid Stimulating Hormone 1.66 uIU/mL (0.465-4.68)
[2025-03-03] MEDS: LACTATED RINGERS 1000ML 1,000 ML 999 ML IV (10:25)
[2025-03-03] MEDS: PROPOFOL 10 MG/ML IV (10:38)
[2025-03-03] MEDS: INFUSION IV (10:38)
--- NOTE | 2025-03-03 10:43 | ECG_ITS ---
APPROVED REPORT Exam: Resting ECG HR:70 bpm ECG Measurements Heart Rate 70 AXES NV 157 P -5 QRSd 148 QRS -20 QT 455 T 87 QTc 476 Conclusion SINUS RHYTHM WITH SINUS ARRHYTHMIA LEFT BUNDLE BRANCH BLOCK [120+ ms QRS DURATION, 80+ ms Q/S IN V1/V2, 85+ ms R IN I/aVL/V5/V6]T Electronically signed by : MALACHI CANTU, 03/03/2025 15:20:31
--- NOTE | 2025-03-03 10:47 | CT_ITS ---
FINAL REPORT TECHNIQUE: Postcontrast axial images of the chest were performed in a CTA protocol. This study was performed with techniques to keep radiation doses as low as reasonably achievable, (ALARA). Individualized dose reduction technique using automated exposure control or adjustment of mA and/or kV according to the patient's size were employed. CLINICAL HISTORY: soa, tachycardia FINDINGS: The heart is normal in size. There is a right paratracheal lymph node measuring 2.0 cm. The thoracic aorta is normal in caliber with no focal aneurysm or dissection identified. There is no filling defect to suggest pulmonary embolism. Patchy bibasilar consolidation is seen with overlying atelectasis. There is a small right and trace left pleural effusion. There is no pericardial effusion. Limited imaging of the upper abdomen demonstrates a small amount of ascites. IMPRESSION: No evidence for PE on this exam. Enlarged right paratracheal lymph node which may be reactive. Bibasilar consolidation and pleural effusions, right greater than left. Reviewed, Interpreted and Dictated by Micha Lazo MD Transcribed by Marce Tomlin Authenticated and [facility]
--- NOTE | 2025-03-03 10:48 | CT_ITS ---
FINAL REPORT TECHNIQUE: Pre-and postcontrast images of the abdomen and pelvis were performed by computed tomography. Extensive 3-D reconstruction images were performed. A CTA was performed. This study was performed with techniques to keep radiation doses as low as reasonably achievable (ALARA). Individualized dose reduction techniques using automated exposure control or adjustment of mA and/or kV according to the patient's size were employed. CLINICAL HISTORY: soa, abdominal distension COMPARISON: None FINDINGS: ABDOMEN AND PELVIS: Small bilateral pleural effusions are present, greater on the right than on the left. Overlying consolidation and atelectasis is present. No adrenal masses are identified. There is diffuse fatty infiltration of the liver present. The gallbladder is present. The spleen and pancreas are unremarkable. There is a hypertrophic right kidney, with mild perinephric fluid and stranding. The left kidney is absent. There is stranding in the retroperitoneal fat anterior to the left psoas muscle. The bladder is incompletely distended. No free fluid is noted in the pelvis. CTA: The abdominal aorta is proper caliber. The SMA, celiac axis, and WALDO are patent. There is no significant stenosis or calcification. The left renal artery is not visualized. There are mild vascular calcifications at the origin of the solitary right renal artery. Note is made of reflux into the hepatic veins, which may be cardiac or pulmonary in origin. IMPRESSION: Small bilateral effusions are present, with overlying consolidation and atelectasis. Absent left kidney. Mild vascular calcifications are present at the origins of the solitary right renal artery, which do not produce hemodynamically significant stenosis. Reflux into the hepatic veins is noted, which may be cardiac or pulmonary in origin. Reviewed, Interpreted and Dictated by Micha Lazo MD Transcribed by Hannah Jessica Authenticated and [facility]
--- NOTE | 2025-03-03 11:17 | PC.NURSE ---
Pre cardioversion rate was A-Fib with RVR
[2025-03-03] MEDS: 0.9 % SODIUM CHLORIDE 50 ML VIAL IV (11:44)
[2025-03-03] MEDS: IOPAMIDOL-370 (76%);100ML BOTTLE 80 ML IV (11:44)
[2025-03-03] MEDS: SODIUM CHLORIDE 0.9% 10ML SYR (RAD ONLY) 10 ML IV (11:44)
[2025-03-03] MEDS: NOREPINEPHRINE BITARTRATE 8 MG in 0.9 % SODIUM CHLORIDE 250 ML 0.97 MG IV (12:09)
--- NOTE | 2025-03-03 12:21 | PC.NURSE ---
Norepi dosage increased to 1 mcg.
--- NOTE | 2025-03-03 12:37 | PC.NURSE ---
2nd trop sent at this time
[2025-03-03 13:17] LABS: Troponin I 0.26 ng/ml (0.00-0.034)
[2025-03-03] MEDS: AZITHROMYCIN 500 MG in 0.9 % SODIUM CHLORIDE 250 ML 250 MG IV (13:35)
[2025-03-03] MEDS: CEFTRIAXONE SODIUM 2 GM in 0.9 % SODIUM CHLORIDE 100 ML IV (14:01)
[2025-03-03] MEDS: METHYLPREDNISOLONE SOD SUCC 125MG VIAL 125 MG IV (14:01)
[2025-03-03] MEDS: RIVAROXABAN 10MG TABLET 10 MG PO (14:02)
[2025-03-03 14:13] LABS: Lactate Venous 2.9 mmol/L (0.4-2.0); VBG Base Excess -2.4 mmol/L (-2.4-2.3); VBG HCO3 24.1 mmol/L (23-30); VBG Oxygen Saturation 95.6 % (50-70); VBG PH 7.29 mmol/L (7.31-7.41); VBG PO2 85.5 mmol/L (28-40); VBG Total CO2 25.7 mmol/L (23-27)
--- NOTE | 2025-03-03 14:27 | CA_ITS ---
APPROVED REPORT EXAM: Comprehensive 2D, Doppler, and color-flow Echocardiogram [employer]imens: Melinda Cortez RVT Ht: 5 ft 7 in Wt: 320lbs BSA: 2.47 BP: 122/83 mmHg Indications: Shortness of Breath, Atrial Fibrillation Echo Enhancing Agent Indication: Endocardial border delineation Agent(s) / Amount(s) Used: Definity 2 cc 2D Dimensions IVSd 1.67 cm M: 0.6-1.2 LVEF (Visual) 46.90 % PWd 1.13 cm M: 0.6 - 1.2 LVDd 5.36 cm M: 4.2 - 5.9 LVDs 4.09 cm M: 2.5 - 4.0 M-Mode Dimensions LA Diam 4.13 cm (1.9-4.0) LV Diastology E Decel Time 150 (160-240 msec) E/A Ratio 3.4 Aortic Valve AO Peak GR. 2.50 mmHg Mitral Valve MV E Max Marek. 99.0 (40-130 cm/s) MV A Velocity 29.0 (40-130 cm/s) E/A Ratio 3.37 MV PHT 44.0 ms Tricuspid Valve TR P. Velocity 271.00 cm/s RAP Estimate 10.00 mmHg RVSP 39.30 mmHg Left Ventricle The left ventricle is normal size. There is increased LV wall thickness. The left ventricular systolic function is normal. The left ventricular ejection fraction is within the normal range. The anterior LV wall is moderately hypokinetic. Diastolic function is indeterminate. LVEF is 50-55%. Right Ventricle On the right ventricle is not well-visualized. Atria The left atrium is mildly dilated. The right atrium is not well-visualized. The interatrial septum is not well-visualized. Aortic Valve The aortic valve is mildly thickened. There is no aortic valvular stenosis. No aortic regurgitation is present. Mitral Valve The mitral valve is normal in structure. No evidence of mitral valve stenosis. Trace mitral regurgitation. Tricuspid Valve The tricuspid valve leaflets are not well-visualized. Mild tricuspid regurgitation. RVSP 25-30 mmHg. Pulmonic Valve Pulmonic valve is not well-visualized. Great Vessels The aortic root is not well-visualized. The IVC is not well-visualized. Pericardium There is no pericardial effusion. Other Information Study Quality: Technically Difficult Conclusion Technically difficult and limited study in the setting of poor acoustic windows. Grossly, the left ventricle is normal in size (LVEF 50-55%). The anterior LV wall is moderately hypokinetic. The RV is not well-visualized. Mild LA dilation. Mild TR. Electronically signed by : Destiny Pérez MD 03/03/2025 23:19:46
[2025-03-03] MEDS: ENOXAPARIN 150MG/ML SYRINGE 150 MG SUBCUT (14:42)
[2025-03-03] MEDS: BUMETANIDE 1MG/4ML VIAL 2 MG IV (14:43)
--- NOTE | 2025-03-03 14:54 | PC.NURSE ---
Pt norepi increased to 8 mcg at 1444
--- NOTE | 2025-03-03 15:01 | PC.NURSE ---
Report received from GARRY Zhang.
--- NOTE | 2025-03-03 15:02 | PC.NURSE ---
called report to laura jimenez in icu
[2025-03-03 15:14] LABS: Activated Partial Thrombo Time 22.6 seconds (22.8-30.6); INR 1.04 (0.9-1.1); Prothrombin Time 11.5 seconds (10.1-12.5)
--- NOTE | 2025-03-03 16:18 | P.HP_ITS ---
<Statement entered by David Gold MD - 03/03/25 19:42> Rounded on patient after nurse practitioner. Personally examined and interviewed patient. Agree with exam findings and care plan as documented. History of Present Illness *Admission Date: 03/03/25 *Reason for visit:: AFib RVR, CHF excerbation *History of present illness: Mr. Laughlin is a 70-year-old male that was seen in the cardiology office and sent to the emergency department due to complaints of shortness of breath, dizziness, lightheadedness, weakness, and abdominal swelling. He states that since Monday the symptoms have been getting worse and now he feels that he cannot catch his breath. Patient also complains of heaviness in his chest, inability to ambulate without having to stop due to extreme shortness of breath and gasping for air. The patient states that he has become extremely edematous in his bilateral legs, as well as his abdomen is very tight. The patient does have supplemental oxygen at home to use at nighttime, but he has been using it more frequently. The patient does state that he takes furosemide for fluid but lately it has not made him urinate nearly as much as he normally does. Mr. Laughlin also states that recently he feels that his heart rate is much faster than it should be. He states that he has checked his blood pressure at home recently and his heart rate has been from 130-160's on the blood pressure cuff monitor. He does have a history of congenital solitary kidney, HFpEF, polycythemia requiring phlebotomy, chronic pain, COPD, and testosterone hormone therapy. In the ER a workup was completed and EKG showed that the patient was in atrial fibrillation with RVR. He was also complaining of chest pain and extreme shortness of breath. Workup was completed including a CBC, CMP, coags, VBG, electrolyte levels, serial troponins, TSH. Imaging including a chest x-ray showing pneumonia, CTA of the chest and abdomen and pelvis. BNP was found to be 8470, troponin 0.26, creatinine elevated at 2.10, and leukocytosis at 12.2. The patient was synchronized cardioverted at 200 J and converted back to normal sinus rhythm with a left bundle branch block. After cardioversion the patient became hypotensive with systolics in the 70s and a norepinephrine drip was initiated to maintain blood pressure. Patient responded well to medication and is maintaining systolic pressures between 90 and 100. Heart rate is remaining in the 60s and patient states that his chest pain is resolving. Patient was also given ceftriaxone and azithromycin in the emergency department for community-acquired pneumonia. In addition to antibiotics patient was also given Solu-Medrol and p.o. Eliquis. The emergency room physician consulted hospital medicine for admission and further management. Cardiology and pulmonology are also consulted to help further manage the patient. Patient was agreeable to admission for further workup and management. [facility] Disclaimer: The information contained in this section may have been updated after the patient was seen, as this information can be updated by other users. Medical History (Updated 03/03/25 @ 17:04 by Germania Saenz APRN) COPD (chronic obstructive pulmonary disease) Wide-complex tachycardia (HFpEF) heart failure with preserved ejection fraction HTN (hypertension), benign Lung nodule Restrictive lung disease COPD mixed type Dyspnea on exertion Stopped smoking with greater than 30 pack year history History of COPD Allergic rhinitis Renal cyst, right Chest pain Hyperlipidemia Surgical History History of cataract surgery History of testicular surgery History of bilateral carpal tunnel release History of back surgery History of surgery on lower extremity History of colonoscopy History of tonsillectomy Family History Other Diabetes Hypertension Social History (Updated 03/03/25 @ 15:55 by Gilma Carrillo RN) Smoking Status: Former smoker years smoked: 25 smoking status stop date: 2014 alcohol intake: never substance use type: denies use current occupational status: retired Travel in the last 8 weeks?: None household members: spouse housing: house Have you lived/traveled outside [place] in past 30 days?: No Contact w/someone who lives/traveled outside US past 30 days?: No Exposure to someone with infectious disease in past 14 days?: No Do you have a fever (greater than 100.4 F or 38 C)?: No Have you tested positive for COVID-19?: No Exposed to someone with COVID-19 in past 14 days?: No Do you have a sore throat?: No Do you have a cough?: No Do you have any weakness?: No Do you have any diarrhea?: No Are you experiencing any unusual bleeding?: No Do you have any muscle aches/pain?: No Do you have any abdominal pain?: No Are you experiencing loss of taste or smell?: No Other Medical History Have you received the Flu Vaccine for this season: Yes Have you received the Pneumonia Vaccine: Yes Review of Systems Constitutional Constitutional: Reports excessive sweating, Reports fatigue and Reports weakness ENT Ears, Nose, Mouth, and Throat: Denies dysphagia *Cardiovascular Cardiovascular: Reports dyspnea, Reports edema, Reports leg edema, Reports palpitations and Reports rapid heart rate *Respiratory Respiratory: Reports dyspnea *Gastrointestinal Gastrointestinal: Denies abdominal pain, Denies change in bowel habits and [place] es dysphagia *Genitourinary Genitourinary: Denies dysuria, Denies urinary frequency and Reports urinary hesitancy *Neurologic Neurologic: Reports weakness Endocrine Endocrine: Reports excessive sweating, Reports fatigue and Reports palpitations Meds Home Medications and Allergies Home Medications ?Medication ?Instructions ?Recorded ?Confirmed ?Type aspirin 81 mg tablet,delayed 81 mg PO DAILY 09/01/20 0 03/03/25 History release (Adult Low Dose Aspirin) tamsulosin 0.4 mg capsule (Flomax) 0.4 mg PO DAILY #30 caps 12/27/22 03/03/25 Rx carvedilol 12.5 mg tablet (Coreg) 12.5 mg PO BID #180 tabs 09/11/24 03/03/25 Rx dapagliflozin propanediol 10 mg 10 mg PO DAILY #90 tab s 09/11/24 03/03/25 Rx tablet (Farxiga) fluticasone fur. 100 mcg-umeclid 1 inh inhalation LILA Y #60 ea 09/11/24 03/03/25 Rx 62.5 mcg-vilant 25 mcg inhalat.powder (Trelegy Ellipta) levothyroxine 112 mcg tablet 224 mcg (2 x 112 mcg) PO DAILY 09/11/24 03/03/25 Rx (Synthroid) #180 tabs lisinopril 20 mg tablet 20 mg PO DAILY #90 tabs 08/2503/03/25 Rx testosterone (AndroGel) 2 pump topical DAILY #75 gra ms 09/11/24 03/03/25 Rx torsemide 100 mg tablet 50 mg (1/2 x 100 mg) PO LILA Y #90 09/11/24 03/03/25 Rx tabs pantoprazole 40 mg tablet,delayed 40 mg PO HS 03/03/25 03/03/25 History release rosuvastatin 20 mg tablet 20 mg PO HS 03/03/25 5 History spironolactone 25 mg tablet 25 mg PO DAILY 03/03/25 History New Prescriptions to Start Prescriptions: Allergies Allergy/AdvReac Type Severity Reaction Status Date / Time No Known Allergies Allergy Verified 03/03/25 08:50 Exam Data for Last 24 hours Vital signs and Labs for Last 24 Hours: Temp Pulse Resp BP Pulse Ox O2 Del Method O2 Flow Rate 97.9 F 72 18 106/77 L 97 Nasal Cannula 2 03/03/25 15:03/03/25 15:03/03/25 15:03/03/25 15:03/03/25 14:12 03/03/25 16:00 03/03/25 16:00 Laboratory Results - last 24 hr 03/03/25 12:26: Troponin I 0.26 H 03/03/25 14:06: VBG pH 7.29 L, VBG pCO2 51.0, VBG pO2 85.5 H, VBG HCO3 24.1, VBG Total CO2 25.7, VBG O2 Saturation 95.6 H, VBG Base Excess -2.4, VBG Lactic Acid 2.9 H 03/03/25 14:39: PT 11.5, INR 1.04, APTT 22.6 L 03/03/25 : WBC 12.2 H, RBC 4.15 L, Hgb 13.2 L, Hct 40.6 L, MCV 97.8 H, MCH 31.8 H, MCHC 32.5, RDW 14.3, Plt Count 213, MPV 10.8 H, Neut % (Auto) 81.0 H, Lymph % (Auto) 9.5 L, Jennings % (Auto) 7.7, Eos % (Auto) 1.1, Baso % (Auto) 0.3, Neut # (Auto) 9.9 H, Lymph # (Auto) 1.2, Jennings # (Auto) 0.9, Eos # (Auto) 0.1, Baso # (Auto) 0.0, Sodium 139, Potassium 3.9, Chloride 104, Carbon Dioxide 28, Anion Gap 10.9, BUN 54 H, Creatinine 2.10 H, Estimated Creat Clear 31, Estimated GFR 31 L, Est GFR ( Amer) 38 L, Glucose 122 H, Calcium 9.2, Magnesium 2.5 H, Total Bilirubin 1.0, AST 39, ALT 51, Alkaline Phosphatase 122, Troponin I 0.26 H , NT-Pro-B Natriuret Pep 8470 H, Total Protein 6.5, Albumin 3.7, Globulin 2.8, Albumin/Globulin Ratio 1.3, TSH 1.66, Free T4 1.74 I & O for Last 24 hours: Intake & Output 02/28/25 03/01/25 03/02/25 03/03/25 23:59 23:59 23:59 23:59 Intake Total 8.487 / 8.487 Balance 8.487 / 8.487 Weight 145.15 kg Constitutional Constitutional: moderate distress, morbidly obese, diaphoretic and cooperative *Routine HEENT Exam Head: Present normocephalic and facial swelling Eye: Present PERRL ENT: Present mucous membranes moist *Routine Neck Exam Neck: Present swelling and trachea midline; Absent JVD or tracheal deviation *Routine Respiratory Exam Respiratory: Present CTA bilaterally, distant breath sounds, diminished air movement, able to speak in complete sentences and symmetric chest movement *Routine Cardiovascular Exam Cardiovascular: Present irregular rhythm *Routine Abdominal Exam Abdominal: Present normoactive bowel sounds, distended, firm and obese *Routine Rectal Exam Rectal:: deferred *Routine Genitalia Exam Genitalia:: deferred *Routine Extremities Exam Extremities: Present edema and full ROM *Routine Skin Exam Skin: Present intact Comments: Diaphoretic *Routine Neurological Exam Neurological: Present alert and oriented X3; Absent tremors Assessment and Plan *Assessment and plan (1) CHF (congestive heart failure): Status: Acute Qualifiers: Heart failure chronicity: chronic Heart failure type: diastolic Qualified Code(s): I50.32 - Chronic diastolic (congestive) heart failure Category: Medical Code(s): I50.9 - Heart failure, unspecified (2) COPD exacerbation: Status: Acute Category: Medical Code(s): J44.1 - Chronic obstructive pulmonary disease with (acute) exacerbation (3) Community acquired pneumonia: Status: Acute Category: Medical Code(s): J18.9 - Pneumonia, unspecified organism (4) Dyspnea: Status: Chronic Qualifiers: Dyspnea type: dyspnea on exertion Qualified Code(s): R06.00 - Dyspnea, unspecified Category: Medical Code(s): R06.00 - Dyspnea, unspecified (5) Atrial fibrillation with rapid ventricular response: Status: Acute Category: Medical Code(s): I48.91 - Unspecified atrial fibrillation (6) Hypotension: Status: Acute Category: Medical Code(s): I95.9 - Hypotension, unspecified (7) Obesity: Status: Chronic Qualifiers: Body mass index: BMI 40.0-44.9 Obesity classification: adult class 3 (BMI >= 40) Obesity type: due to excess calories Serious obesity comorbidity presence: with serious comorbidity Qualified Code(s): E66.01 - Morbid (severe) obesity due to excess calories; Z68.41 - Body mass index [BMI]40.0-44.9, adult Category: Medical Code(s): E66.9 - Obesity, unspecified (8) HTN (hypertension), benign: Status: Acute Category: Medical Code(s): I10 - Essential (primary) hypertension (9) Hyperlipidemia: Status: Chronic Qualifiers: Hyperlipidemia type: mixed hyperlipidemia Qualified Code(s): E78.2 - Mixed hyperlipidemia Category: Medical Code(s): E78.5 - Hyperlipidemia, unspecified (10) Congenital single kidney: Status: Acute Category: Medical Code(s): Q60.0 - Renal agenesis, unilateral Plan Assessment of patient reveals that he is still slightly dyspneic, diaphoretic, and weak. He states his chest pain is resolved but he is still having shortness of breath. Vital signs remained stable pressures 120s over 80s, heart rate in the mid 60s showing normal sinus rhythm with a left bundle branch block. Discussed case with ER physician, requested admission for further management of A-fib, volume overload, respiratory failure. Medicine agreed to admit for further care. Cardiology is consulted for further evaluation. Patient remains on nasal cannula at 2 L with O2 saturation of 96%. He remains afebrile at 97.9 orally. is at bedside. Patient will be managed as follows: #CHF #COPD exacerbation #Pneumonia #Dyspnea ?Patient started on Bumex 2 mg IV once at admission. Limited response, escalated to Bumex drip 0.5 mg hourly ?Patient will remain on O2 2 L and will titrate as needed to maintain oxygen saturation above 90%. ?Pulmonology consulted for further evaluation, patient follows with pulmonology outpatient. ?Broad-spectrum antibiotics initiated with ceftriaxone and azithromycin in the ED. Will continue ceftriaxone 2 g daily for community-acquired pneumonia and COPD exacerbation. ?IV steroids ordered with methylprednisolone 125 mg once in the ED. Reevaluate steroids in the morning - white count elevated 12.2, hemoglobin 13.2. - BNP elevated 8400 consistent with CHF exacerbation. Troponin elevated at 0.26, stable. Consistent with NSTEMI ALICE: Kidney function abnormal with BUN 54, creatinine 2.1. Appears to have ALICE, suspect cardiorenal due to volume overload. Monitor for improvement with diuresis. Repeat BMP ordered for the evening. - Magnesium 2.5, potassium 3.9. #A-fib RVR #Hypotension ?Patient was cardioverted in the emergency room and has maintained in normal sinus rhythm with left bundle branch block, cardiology is consulted. ?Patient remains on a norepinephrine drip for hypotension. Weaning for MAP goal of 65 -Metoprolol tartrate 50 mg daily for rate control. Holding home carvedilol. -Lovenox 1 mg/kg twice daily ordered for anticoagulation ?Patient had echo in 2022 that showed 50% EF, echo pending. #Obesity ?Patient's morbid obesity, BMI of 50 complicates all aspects of care. #Low testosterone ?CT a of chest with PE protocol was performed in the ER to rule out PE, CTA was negative. ?Patient at risk for hypercoagulation status, will initiate VTE protocol. #Hypertension #Hyperlipidemia #Congenital single kidney #Hypothyroidism #GERD #BPH ?Home medications are being held at this time due to unstable blood pressures and heart rate. - TSH ordered for the morning - Repeat CBC, CMP, magnesium ordered for the morning Full code Cardiac diet Lovenox 150 mg subcu: VTE prophylaxis Ambulate as tolerated Cardiology and pulmonology consulted Echo pending
[2025-03-03] MEDS: DEFINITY US ECHO CONTRAST 2ML INJ 2 MG IV (16:27)
--- NOTE | 2025-03-03 18:00 | PC.NURSE ---
Verified Bumex drip mix with Niko from pharmacy. Continuation of care plan.
[2025-03-03] MEDS: BUMETANIDE 10 MG in 0.9 % SODIUM CHLORIDE 60 ML 5 MG IV (18:03)
[2025-03-03 18:14] LABS: Reflex Lactic Add Lactic Reflex
[2025-03-03 18:55] LABS: Lactic Acid Follow Up (RFLX 1) 2.4 mmol/L (0.7-2.1)
--- NOTE | 2025-03-03 19:05 | PC.NURSE ---
Per dr. Gold we are going to hold the pts carvedilol and he is going to switch him to metoprolol, and need to try and get the pt off of levophed. Dr. Gold said metoprolol would be better then carvedilol since pt had to be cardioverted and then became hypotensive and is on the levophed drip.
[2025-03-03] MEDS: METOPROLOL TARTRATE 25MG TABLET 50 MG PO (20:23)
[2025-03-03] MEDS: PANTOPRAZOLE 40MG TABLET 40 MG PO (20:23)
[2025-03-03 20:34] LABS: Reflex Lactic (2 hrs) Add Lactic Reflex
[2025-03-03 20:54] LABS: Chloride 103 mmol/L (98-107)
[2025-03-03 20:55] LABS: Potassium 4.2 mmoL/L (3.5-5.1); Sodium 139 mmol/L (136-145)
[2025-03-03 20:57] LABS: Blood Urea Nitrogen 53 mg/dl (9-20); Creatinine Clearance Estimated 34 mL/min (50-200); Estimated Glomerular Filt Rate 35 ml/min (>60); GFR (African American) 43 ML/MIN (>60)
[2025-03-03 20:58] LABS: Anion Gap 14.2 mEq/L (5-15); Calcium 9.3 mg/dl (8.4-10.2); Carbon Dioxide 26 mmol/L (22.0-30.0); Glucose 180 mg/dl (74-100)
--- NOTE | 2025-03-03 21:45 | PC.NURSE ---
pts brought his home medicines in with her domonique. they are locked up in the med drawer and would like to start taken his home medications after pharmacy goes through them.
[2025-03-03] MEDS: ATORVASTATIN 40MG TABLET 40 MG PO (21:59)
[2025-03-03] MEDS: TAMSULOSIN 0.4MG CAPSULE 0.4 MG PO (22:17)
[2025-03-04] VITALS (40 sets, daily range): BP systolic 107–151; BP diastolic 70–100; PULSE 56–82; RESP 10–29; TEMP 36.4–36.8; O2SAT 91–98; BMI 49.6
--- NOTE | 2025-03-04 05:00 | PC.NURSE ---
no urine output was documented under the licensed nurse checks all was documented under intake and output
[2025-03-04] MEDS: BUMETANIDE 10 MG in 0.9 % SODIUM CHLORIDE 60 ML 5 MG IV (05:45)
[2025-03-04 06:22] LABS: Basophils % 0.1 % (0.1-2.0); Hematocrit 39.3 % (42.0-52.0); Hemoglobin 12.7 g/dL (14.1-18.0); Immature Granulocytes # 0.04 10^3uL; Immature Granulocytes % 0.4 %; Lymphocytes # 0.7 K/mm3 (0.7-4.5); Lymphocytes % 7.7 % (10-50); Mean Corpuscular HGB Conc 32.3 g/dL (31.8-35.4); Mean Corpuscular Hemoglobin 31.8 pg (27.0-31.2); Mean Corpuscular Volume 98.3 fl (80-94); Mean Platelet Volume 10.9 fl (7.4-10.4); Monocytes # 0.4 K/mm3 (0.1-1.0); Monocytes % 3.9 % (1.7-9.3); Neutrophils # 8.1 K/mm3 (1.8-7.8); Neutrophils % 87.9 % (37.0-80.0); Nucleated Red Blood Cells # 0 10^3/uL; Nucleated Red Blood Cells % 0 %; Platelet Count 212 K/mm3 (142-424); Red Cell Distribution Width 14.1 % (11.5-17.5); Red Cell Distribution Width-SD 50.5 fL; White Blood Count 9.2 K/mm3 (4.8-10.8)
[2025-03-04] MEDS: FLUTICASONE/UMECLIDIN/VILANTER 100/62.5/25MCG INHALER 1 PUFF IH (06:24)
--- NOTE | 2025-03-04 06:29 | PC.NURSE ---
Patient is alert and oriented. Pt was up and down throughout the night. Pt is no longer on levophed drip. It was stopped at 0107. Pt is still on the bumex drip at 5ml/hr. Pt has had 1900 out during the shift. Pt wore his home cpap during the night. Pt has no complaints at this time. pt is bedside and will be helping the pt with getting washed up for the day.
[2025-03-04 06:41] LABS: Chloride 105 mmol/L (98-107); Potassium 3.8 mmoL/L (3.5-5.1); Sodium 140 mmol/L (136-145)
[2025-03-04 06:44] LABS: Alanine Aminotransferase 50 U/L (12-78); Albumin/Globulin Ratio 1.5 (1.1-1.8); Alkaline Phosphatase 129 U/L (38-126); Anion Gap 9.8 mEq/L (5-15); Aspartate Amino Transferase 29 U/L (17-59); Bilirubin,Total 0.4 mg/dl (0.2-1.3); Blood Urea Nitrogen 55 mg/dl (9-20); Carbon Dioxide 29 mmol/L (22.0-30.0); Cholesterol 147 mg/dl (140-200); Creatinine Clearance Estimated 35 mL/min (50-200); Estimated Glomerular Filt Rate 38 ml/min (>60); GFR (African American) 45 ML/MIN (>60); Globulin 2.7 g/dL (1.3-3.2); Glucose 175 mg/dl (74-100); Total Protein,Serum 6.7 g/dl (6.3-8.2); Triglycerides 166 mg/dl (30-150); VLDL Cholesterol 33 mg/dL (0-40)
[2025-03-04 06:45] LABS: Calcium 9.1 mg/dl (8.4-10.2); Chol/HDL Ratio 5.4 (1-3.5); HDL Cholesterol 27 mg/dl (40-60); Magnesium 2.5 mg/dl (1.6-2.3)
[2025-03-04 06:56] LABS: Direct LDL Cholesterol 75.86 mg/dL (100-129)
[2025-03-04 07:18] LABS: Thyroid Stimulating Hormone 0.59 uIU/mL (0.465-4.68)
[2025-03-04] MEDS: LEVOTHYROXINE 112MCG (0.112MG) TAB 224 MCG PO (07:57)
[2025-03-04] MEDS: METOPROLOL TARTRATE 50MG TABLET 50 MG PO ×2 (08:30→20:13)
[2025-03-04] MEDS: DAPAGLIFLOZIN PROPANEDIOL 10 MG TABLET PO (08:30)
[2025-03-04] MEDS: SPIRONOLACTONE 25MG TABLET 25 MG PO (08:30)
[2025-03-04] MEDS: CEFTRIAXONE SODIUM 2 GM in 0.9 % SODIUM CHLORIDE 100 ML IV (08:30)
--- NOTE | 2025-03-04 09:48 | HMH.OTEV ---
OT Inpatient Evaluation Rehab OT IP Evaluation Start: 03/04/25 08:26 Freq: ONCE Status: Active Protocol: Document 03/04/25 09:43 MERY (Rec: 03/04/25 09:48 [id number] Rehab OT IP Assessment Subjective History Pt oriented x 3 on arrival. Pt agreeable to engage in therapy evaluation. Pt's present and supportive. Pt admitted on 03/03/25 with A-fib. History and physical: Mr. Laughlin is a 70-year-old male that was seen in the cardiology office and sent to the emergency department due to complaints of shortness of breath, dizziness, lightheadedness, weakness, and abdominal swelling. He states that since Monday the symptoms have been getting worse and now he feels that he cannot catch his breath . Patient also complains of heaviness in his chest, inability to ambulate without having to stop due to extreme shortness of breath and gasping for air. The patient states that he has become extremely edematous in his bilateral legs, as well as his abdomen is very tight. The patient does have supplemental oxygen at home to use at nighttime, but he has been using it more frequently. The patient does state that he takes furosemide for fluid but lately it has not made him urinate nearly as much as he normally does. Mr. Laughlin also states that recently he feels that his heart rate is much faster than it should be. He states that he has checked his blood pressure at home recently and his heart rate has been from 130-160's on the blood pressure cuff monitor. He does have a history of congenital solitary kidney, HFpEF, polycythemia requiring phlebotomy, chronic pain, COPD, and testosterone hormone therapy. In the ER a workup was completed and EKG showed that the patient was in atrial fibrillation with RVR. He was also complaining of chest pain and extreme shortness of breath. Workup was completed including a CBC, CMP, coags, VBG, electrolyte levels, serial troponins, TSH. Imaging including a chest x-ray showing pneumonia, CTA of the chest and abdomen and pelvis. BNP was found to be 8470, troponin 0.26, creatinine elevated at 2.10, and leukocytosis at 12.2. The patient was synchronized cardioverted at 200 J and converted back to normal sinus rhythm with a left bundle branch block. After cardioversion the patient became hypotensive with systolics in the 70s and a norepinephrine drip was initiated to maintain blood pressure. Patient responded well to medication and is maintaining systolic pressures between 90 and 100. Heart rate is remaining in the 60s and patient states that his chest pain is resolving. Patient was also given ceftriaxone and azithromycin in the emergency department for community-acquired pneumonia. In addition to antibiotics patient was also given Solu- Medrol and p.o. Eliquis. The emergency room physician consulted hospital medicine for admission and further management. Cardiology and pulmonology are also consulted to help further manage the patient. Patient was agreeable to admission for further workup and management. Subjective Prior to being in the hospital, pt lived at home with his . Normally pt is independent with all ADLs and IADLs. Pt did not require any type of AE during functional transfers. Pt still drove. Objective Patient Orientation Person,Place,Birthday Right Upper WFL Extremity Gross ROM Left Upper Extremity WFL Gross ROM Bed Mobility bed mobility-scooting,bed mobility - supine/sit Assist Level Supervision/Stand by Transfer Training Sit/Stand Transfer Assist Level Supervision/Stand by Chair Transfer Supervision/Stand by Ability Chair Transfer Sit to/from Ambulatory Technique Chair Transfer None Assistive Devices Lower Body Dressing Standby Assistance Ability Rehab OT IP prob,goals,plan Problems Date of Evaluation: 03/04/25 OT IP Problems Bed Mobility,Transfers,Balance,Self care,Safety Rehab Potential Rehab Potential Innapropriate for Skilled Therapy Discharge Plan OT Discharge Plan Pt appears to be at baseline with functional transfers and ADL independence. Pt can return home with once he is medially stable per physician. Eval Complexity Eval Charge Codes 93379 - Moderate Complexity PHYSICIAN CERTIFICATION: I certify the specified therapy services for Mika Laughlin are required, authorized, and reviewed every 30 days.
--- NOTE | 2025-03-04 09:55 | P.PN_ITS ---
<Statement entered by David Gold MD - 03/04/25 16:17> Rounded on patient after nurse practitioner. Personally examined and interviewed patient. Agree with exam findings and care plan as documented. Subjective *Date: 03/04/25 *Time: 15:54 Interval history: Rounded on Mr. Laughlin this morning. Patient sitting up in the bed, at bedside, no acute distress. Patient is hemodynamically stable at this point. Continued Bumex drip for diuresis. Patient has had successful output. Denies chest pain, shortness of breath, and weakness. Cards and pulm to visit with him today. Medical Exam Vital signs and Labs for Last 24 Hours: Vital Signs Temp Pulse Pulse Resp BP BP Pulse Ox 03/04/25 09:00 68 17 116/80 95 03/04/25 08:30 69 22 134/79 95 03/04/25 08:28 03/04/25 08:00 63 03/04/25 08:00 97.6 F 68 16 124/86 96 03/04/25 07:38 91 L 03/04/25 06:54 65 18 115/78 93 L 03/04/25 06:54 03/04/25 06:54 73 18 115/78 93 L 03/04/25 06:00 65 18 127/86 95 03/04/25 06:00 62 18 127/86 95 03/04/25 05:00 56 L 18 124/82 93 L 03/04/25 05:00 58 L 18 124/82 94 L 03/04/25 04:59 03/04/25 04:00 60 03/04/25 04:00 97.6 F 64 18 123/85 94 L 03/04/25 04:00 60 94 L 03/04/25 04:00 97.6 F 57 L 18 123/85 94 L 03/04/25 03:00 67 20 117/73 92 L 03/04/25 03:00 67 20 117/73 92 L 03/04/25 02:58 03/04/25 01:59 73 18 114/73 91 L 03/04/25 01:59 71 18 114/73 91 L 03/04/25 01:00 76 18 129/79 92 L 03/04/25 01:00 03/04/25 01:00 82 20 129/79 94 L 03/04/25 00:00 66 18 121/85 91 L 03/04/25 00:00 70 91 L 03/04/25 00:00 70 18 121/85 92 L 03/04/25 00:00 72 03/03/25 23:00 61 20 125/96 H 92 L 03/03/25 23:00 03/03/25 23:00 61 20 125/96 H 92 L 03/03/25 22:00 70 19 118/82 91 L 03/03/25 22:00 70 19 118/82 91 L 03/03/25 21:00 58 L 18 118/88 93 L 03/03/25 21:00 03/03/25 21:00 58 L 18 118/88 93 L 03/03/25 20:00 64 18 110/74 95 03/03/25 20:00 64 95 03/03/25 20:00 98.4 F 64 18 110/74 95 03/03/25 18:31 03/03/25 18:30 85 20 115/80 92 L 03/03/25 18:00 66 100/74 L 95 03/03/25 17:42 63 20 107/69 L 96 03/03/25 17:00 03/03/25 16:52 58 L 18 107/69 L 96 03/03/25 16:20 66 03/03/25 16:00 61 20 124/96 H 96 03/03/25 16:00 03/03/25 15:09 97.9 F 72 18 106/77 L 03/03/25 15:01 24 106/77 L 03/03/25 15:00 98.2 F 64 23 109/76 L 03/03/25 14:53 17 109/76 L 03/03/25 14:38 15 63/48 L 03/03/25 14:12 64 22 97 03/03/25 14:00 16 89/58 L 03/03/25 13:29 65 12 89/64 L 100 03/03/25 13:00 65 13 77/57 L 99 03/03/25 12:39 60 17 81/57 L 97 03/03/25 12:20 63 15 81/50 L 99 03/03/25 12:05 64 18 79/44 L 98 03/03/25 12:00 64 20 80/45 L 100 03/03/25 11:51 66 18 97/49 L 99 03/03/25 11:31 24 88/64 L 96 03/03/25 11:08 65 18 85/63 L 97 03/03/25 11:05 65 21 80/56 L 96 03/03/25 11:04 64 17 79/55 L 94 L 03/03/25 11:00 61 16 73/52 L 95 03/03/25 10:59 62 20 77/53 L 95 03/03/25 10:56 63 20 74/52 L 94 L 03/03/25 10:52 61 18 78/53 L 94 L 03/03/25 10:49 62 24 74/47 L 95 03/03/25 10:46 66 25 H 79/52 L 94 L 03/03/25 10:43 65 22 92/49 L 90 L 03/03/25 10:41 70 21 84/53 L 76 L 03/03/25 10:36 149 H 31 H 124/61 97 03/03/25 10:22 25 H 108/50 L 96 03/03/25 10:17 135 H 78/47 L 96 03/03/25 10:02 150 H 18 108/53 L 98 03/03/25 10:01 121 H 21 108/53 L 99 O2 Del Method O2 Flow Rate 03/04/25 09:00 03/04/25 08:30 03/04/25 08:28 Room Air 03/04/25 08:00 03/04/25 08:00 Room Air 03/04/25 07:38 Room Air 03/04/25 06:54 Room Air 03/04/25 06:54 Room Air 03/04/25 06:54 Room Air 03/04/25 06:00 CPAP 03/04/25 06:00 CPAP 03/04/25 05:00 CPAP 03/04/25 05:00 CPAP 03/04/25 04:59 CPAP 03/04/25 04:00 03/04/25 04:00 CPAP 03/04/25 04:00 CPAP 03/04/25 04:00 CPAP 03/04/25 03:00 CPAP 03/04/25 03:00 CPAP 03/04/25 02:58 CPAP 03/04/25 01:59 CPAP 03/04/25 01:59 CPAP 03/04/25 01:00 CPAP 03/04/25 01:00 CPAP 03/04/25 01:00 CPAP 03/04/25 00:00 CPAP 03/04/25 00:00 CPAP 03/04/25 00:00 CPAP 03/04/25 00:00 03/03/25 23:00 CPAP 03/03/25 23:00 CPAP 03/03/25 23:00 CPAP 03/03/25 22:00 Room Air 03/03/25 22:00 Room Air 03/03/25 21:00 Nasal Cannula 2 03/03/25 21:00 Nasal Cannula 2 03/03/25 21:00 Nasal Cannula 2 03/03/25 20:00 Nasal Cannula 2 03/03/25 20:00 Nasal Cannula 2 03/03/25 20:00 Nasal Cannula 2 03/03/25 18:31 Room Air 2 03/03/25 18:30 Nasal Cannula 2 03/03/25 18:00 2 03/03/25 17:42 Nasal Cannula 2 03/03/25 17:00 Nasal Cannula 2 03/03/25 16:52 Nasal Cannula 2 03/03/25 16:20 03/03/25 16:00 Nasal Cannula 2 03/03/25 16:00 Nasal Cannula 2 03/03/25 15:09 Nasal Cannula 2 03/03/25 15:01 03/03/25 15:00 Room Air 03/03/25 14:53 03/03/25 14:38 03/03/25 14:12 Nasal Cannula 2 03/03/25 14:00 03/03/25 13:29 03/03/25 13:00 03/03/25 12:39 Nasal Cannula 2 03/03/25 12:20 Nasal Cannula 2 03/03/25 12:05 Nasal Cannula 2 03/03/25 12:00 Nasal Cannula 2 03/03/25 11:51 Nasal Cannula 2 03/03/25 11:31 Nasal Cannula 2 03/03/25 11:08 Nasal Cannula 4 03/03/25 11:05 Nasal Cannula 4 03/03/25 11:04 Nasal Cannula 4 03/03/25 11:00 Nasal Cannula 4 03/03/25 10:59 Nasal Cannula 4 03/03/25 10:56 Nasal Cannula 4 03/03/25 10:52 Nasal Cannula 4 03/03/25 10:49 Nasal Cannula 4 03/03/25 10:46 Nasal Cannula 4 03/03/25 10:43 Nasal Cannula 4 03/03/25 10:41 Nasal Cannula 4 03/03/25 10:36 Nasal Cannula 4 03/03/25 10:22 Nasal Cannula 4 03/03/25 10:17 Nasal Cannula 4 03/03/25 10:02 Room Air 03/03/25 10:01 Intake and Output 03/03/25 03/04/25 03/04/25 23:59 07:59 15:59 Intake Total 359.618 / 377.651 333.279 / 573.279 240 / 573.279 Output Total 1375 / 1675 2300 / 2900 600 / 2900 Balance -1015.382 / -1297.349 -1966.721 / -2326.721 -360 / -2326.721 Intake: Intake, Oral Amount 140 / 140 240 / 480 240 / 480 Intake, Total IV Amount 219.618 / 237.651 93.279 / 93.279 Bumetanide 10 mg In 0.9 % 106 / 106 28 / 28 Sodium Chloride 60 ml @ 5 mls/ hr IV .Q20H [facility] Rx#:[id number] Norepinephrine Bitartrate 8 mg / In 0.9 % Sodium Chloride 250 ml @ 2 MCG/MIN 3.87 mls/hr IV . Q24H [facility] Rx#:[id number] Output: Output, Urine Amount 1375 / 1675 2300 / 2900 600 / 2900 Other: Weight 143.653 kg Patient Weight 03/04/25 23:59 Weight 143.653 kg Laboratory Results - last 24 hr 03/03/25 12:26: Troponin I 0.26 H 03/03/25 14:06: VBG pH 7.29 L, VBG pCO2 51.0, VBG pO2 85.5 H, VBG HCO3 24.1, VBG Total CO2 25.7, VBG O2 Saturation 95.6 H, VBG Base Excess -2.4, VBG Lactic Acid 2.9 H 03/03/25 14:39: PT 11.5, INR 1.04, APTT 22.6 L 03/03/25 18:30: Lactate 2.4 H 03/03/25 20:37: Sodium 139, Potassium 4.2, Chloride 103, Carbon Dioxide 26, Anion Gap 14.2, BUN 53 H, Creatinine 1.90 H, Estimated Creat Clear 34, Estimated GFR 35 L, Est GFR ( Amer) 43 L, Glucose 180 H D, Calcium 9.3 03/03/25 21:45: Lactate 2.0 03/03/25 : Troponin I 0.26 H, NT-Pro-B Natriuret Pep 8470 H, TSH 1.66, Free T4 1.74 03/04/25 05:52: WBC 9.2, RBC 4.00 L, Hgb 12.7 L, Hct 39.3 L, MCV 98.3 H, MCH 31.8 H, MCHC 32.3, RDW 14.1, Plt Count 212, MPV 10.9 H, Neut % (Auto) 87.9 H, Lymph % (Auto) 7.7 L, Jack % (Auto) 3.9, Eos % (Auto) 0.0 L, Baso % (Auto) 0.1, Neut # (Auto) 8.1 H, Lymph # (Auto) 0.7, Jack # (Auto) 0.4, Eos # (Auto) 0.0, Baso # (Auto) 0.0, Sodium 140, Potassium 3.8, Chloride 105, Carbon Dioxide 29, Anion Gap 9.8, BUN 55 H, Creatinine 1.80 H, Estimated Creat Clear 35, Estimated GFR 38 L, Est GFR ( Amer) 45 L, Glucose 175 H, Calcium 9.1, Magnesium 2.5 H, Total Bilirubin 0.4, AST 29 D, ALT 50, Alkaline Phosphatase 129 H, Total Protein 6.7, Albumin 4.0, Globulin 2.7, Albumin/Globulin Ratio 1.5, Triglycerides 166 H, Cholesterol 147, LDL Cholesterol Direct 75.86 L, VLDL Cholesterol 33, HDL Cholesterol 27 L, Cholesterol/HDL Ratio 5.4 H, TSH 0.59 D I & O for Labs for Last 24 Hours: Intake & Output 03/01/25 03/02/25 03/03/25 03/04/25 23:59 23:59 23:59 23:59 Intake Total 377.651 / 377.651 573.279 / 573.279 Output Total 1375 / 1675 2900 / 2900 Balance -997.349 / -1297.349 -2326.721 / -2326.721 Weight 145.15 kg 143.653 kg ENT: Present normal exam Neck: Present normal inspection Respiratory: Present distant breath sounds, diminished air movement, normal respiratory effort and able to speak in complete sentences Cardiac: Present Regular Rate, Irregularly Regular and No Murmur GI: Present soft and normal bowel sounds; Absent tenderness Rectal (male): Present deferred (male): Present deferred Extremities: Present normal inspection, full ROM and edema; Absent tenderness Skin: Present intact Assessment and Plan *Assessment and plan (1) Community acquired pneumonia: Status: Acute Category: Medical Code(s): J18.9 - Pneumonia, unspecified organism (2) Atrial fibrillation with rapid ventricular response: Status: Acute Category: Medical Code(s): I48.91 - Unspecified atrial fibrillation (3) Hypotension: Status: Acute Category: Medical Code(s): I95.9 - Hypotension, unspecified (4) Congenital single kidney: Status: Acute Category: Medical Code(s): Q60.0 - Renal agenesis, unilateral (5) Obesity: Status: Chronic Qualifiers: Body mass index: BMI 40.0-44.9 Obesity classification: adult class 3 (BMI >= 40) Obesity type: due to excess calories Serious obesity comorbidity presence: with serious comorbidity Qualified Code(s): E66.01 - Morbid (severe) obesity due to excess calories; Z68.41 - Body mass index [BMI]40.0-44.9, adult Category: Medical Code(s): E66.9 - Obesity, unspecified (6) Dyspnea: Status: Chronic Qualifiers: Dyspnea type: dyspnea on exertion Qualified Code(s): R06.00 - Dyspnea, unspecified Category: Medical Code(s): R06.00 - Dyspnea, unspecified (7) FREDO (obstructive sleep apnea): Status: Chronic Category: Medical Code(s): G47.33 - Obstructive sleep apnea (adult) (pediatric) (8) (HFpEF) heart failure with preserved ejection fraction: Status: Acute Qualifiers: Heart failure chronicity: chronic Qualified Code(s): I50.32 - Chronic diastolic (congestive) heart failure Category: Medical Code(s): I50.30 - Unspecified diastolic (congestive) heart failure (9) COPD exacerbation: Status: Acute Category: Medical Code(s): J44.1 - Chronic obstructive pulmonary disease with (acute) exacerbation Plan Patient remains hemodynamically stable and admitted to the stepdown unit for close monitoring. Vital signs have been within normal limits systolics in the 1 teens, heart rate has remained regular and in the 60s. Patient denies chest pain or discomfort. Patient states that his edema and shortness of breath is better. #CHF #COPD exacerbation #Pneumonia #Dyspena ? Patient was initiated on Bumex 2 mcg IV on admission and continues to respond well to this medication. Patient is net negative and has put out 4.3 L since yesterday. ? Patient has transition from 2 L nasal cannula to room air sats remain above 92%. Patient denies shortness of breath. ?Pulmonology consulted for further evaluation, Recommendations to continue ceftriaxone and azithromycin, awaiting cultures. Continue home Trelegy inhaler and initiate DuoNebs every 6 hours as needed. ? Continue ceftriaxone 2 g daily for community-acquired pneumonia and COPD exacerbation. ?IV steroids ordered with methylprednisolone 125 mg once in the ED. continuing to hold steroids per pulmonology recommendation. - Leukocytosis has resolved, WBC 9.2 today. - BNP elevated 8400 consistent with CHF exacerbation. Troponin elevated at 0.26, stable. Consistent with NSTEMI, awaiting recommendations from cardiology at this time. ALICE: -Kidney function has improved from 2.1-1.7, will continue to monitor with BMPs this afternoon and in the morning. - Repeat magnesium today remains 2.5, potassium stable at 3.8. #A-fib RVR #Hypotension ?Patient was cardioverted in the emergency room and has maintained in normal sinus rhythm with left bundle branch block, cardiology is consulted. ?Patient remains on a norepinephrine drip for hypotension. Weaning for MAP goal of 65 -Metoprolol tartrate 50 mg daily for rate control. Holding home carvedilol. -Lovenox 1 mg/kg twice daily ordered for anticoagulation ?Patient had echo in 2022 that showed 50% EF, echo pending. #Obesity ?Patient's morbid obesity, BMI of 50 complicates all aspects of care. #Low testosterone ?CT a of chest with PE protocol was performed in the ER to rule out PE, CTA was negative. ?Patient at risk for hypercoagulation status, will initiate VTE protocol. #Hypertension #Hyperlipidemia #Congenital single kidney #Hypothyroidism #GERD #BPH ? Waiting to restart home medications until recommendations from cardiology are made. - TSH 0.59. - Repeat CBC, CMP in the morning.
[2025-03-04] MEDS: ENOXAPARIN 150MG/ML SYRINGE 145 MG SUBCUT ×2 (10:02→23:32)
--- NOTE | 2025-03-04 10:06 | P.CONS_ITS ---
History of Present Illness History of present illness: Mr. Laughlin is a 70-year-old male greater than [id number] smoking last smoked around 2017 Barron diagnosis of sleep apnea on NIV, congestive heart failure COPD Was sent to the ER from cardiology office complaining of worsening respiratory distress shortness of breath dizziness and weakness. [facility] Disclaimer: The information contained in this section may have been updated after the patient was seen, as this information can be updated by other users. Medical History (Updated 03/03/25 @ 17:04 by Germania Saenz APRN) COPD (chronic obstructive pulmonary disease) Wide-complex tachycardia (HFpEF) heart failure with preserved ejection fraction HTN (hypertension), benign Lung nodule Restrictive lung disease COPD mixed type Dyspnea on exertion Stopped smoking with greater than 30 pack year history History of COPD Allergic rhinitis Renal cyst, right Chest pain Hyperlipidemia Surgical History History of cataract surgery History of testicular surgery History of bilateral carpal tunnel release History of back surgery History of surgery on lower extremity History of colonoscopy History of tonsillectomy Family History Other Diabetes Hypertension Social History (Updated 03/03/25 @ 15:55 by Gilma Carrillo RN) Smoking Status: Former smoker years smoked: 25 smoking status stop date: 2014 alcohol intake: never substance use type: denies use current occupational status: retired Travel in the last 8 weeks?: None household members: spouse housing: house Have you lived/traveled outside [place] in past 30 days?: No Contact w/someone who lives/traveled outside [place] past 30 days?: No Exposure to someone with infectious disease in past 14 days?: No Do you have a fever (greater than 100.4 F or 38 C)?: No Have you tested positive for COVID-19?: No Exposed to someone with COVID-19 in past 14 days?: No Do you have a sore throat?: No Do you have a cough?: No Do you have any weakness?: No Do you have any diarrhea?: No Are you experiencing any unusual bleeding?: No Do you have any muscle aches/pain?: No Do you have any abdominal pain?: No Are you experiencing loss of taste or smell?: No Review of Systems Constitutional Constitutional: Reports body ache(s), Reports fatigue and Reports weakness Eyes Eyes: Denies eye discharge, Denies dry eyes, Denies irritation and Denies itchy eyes ENT Ears, Nose, Mouth, and Throat: Denies epistaxis, Denies facial pain, Denies lip swelling and Denies throat swelling *Cardiovascular Cardiovascular: Reports dyspnea, Reports dyspnea on exertion and Reports orthopnea *Respiratory Respiratory: Denies change in phlegm color, Reports chest congestion, Reports cough, Reports dyspnea, Reports dyspnea on exertion, Reports excessive phlegm production, Denies hemoptysis, Denies pain on inspiration, Denies pain with cough and Reports wheezing *Gastrointestinal Gastrointestinal: Denies abdominal pain, Denies belching and Denies cramping *Musculoskeletal Musculoskeletal: Reports back pain, Reports myalgias and Reports other (No small joint swelling or Pain) *Neurologic Neurologic: Reports weakness Psychiatric Psychiatric: Denies homicidal ideation and Denies suicidal ideation Endocrine Endocrine: Reports fatigue and Denies heat intolerance Hematologic/Lymphatic Hematologic/Lymphatic: Denies easy bleeding and Denies lymphadenopathy Allergic/Immunologic Allergic/Immunologic: Denies itchy eyes, Denies lip swelling, Denies throat swelling and Reports wheezing Pulmonology Exam Inpatient Vital signs and Labs for Last 24 Hours: Temp Pulse Resp BP Pulse Ox O2 Del Method O2 Flow Rate 97.6 F 68 17 116/80 95 Room Air 2 03/04/25 08:00 03/04/25 09:00 03/04/25 09:00 03/04/25 09:00 03/04/25 09:00 03/04/25 08:28 03/03/25 21:00 Laboratory Results - last 24 hr 03/03/25 12:26: Troponin I 0.26 H 03/03/25 14:06: VBG pH 7.29 L, VBG pCO2 51.0, VBG pO2 85.5 H, VBG HCO3 24.1, VBG Total CO2 25.7, VBG O2 Saturation 95.6 H, VBG Base Excess -2.4, VBG Lactic Acid 2.9 H 03/03/25 14:39: PT 11.5, INR 1.04, APTT 22.6 L 03/03/25 18:30: Lactate 2.4 H 03/03/25 20:37: Sodium 139, Potassium 4.2, Chloride 103, Carbon Dioxide 26, Anion Gap 14.2, BUN 53 H, Creatinine 1.90 H, Estimated Creat Clear 34, Estimated GFR 35 L, Est GFR ( Amer) 43 L, Glucose 180 H D, Calcium 9.3 03/03/25 21:45: Lactate 2.0 03/03/25 : TSH 1.66 03/04/25 05:52: WBC 9.2, RBC 4.00 L, Hgb 12.7 L, Hct 39.3 L, MCV 98.3 H, MCH 31.8 H, MCHC 32.3, RDW 14.1, Plt Count 212, MPV 10.9 H, Neut % (Auto) 87.9 H, L ymph % (Auto) 7.7 L, [place] % (Auto) 3.9, Eos % (Auto) 0.0 L, Baso % (Auto) 0.1, N eut # (Auto) 8.1 H, Lymph # (Auto) 0.7, [place] # (Auto) 0.4, Eos # (Auto) 0.0, Baso # (Auto) 0.0, Sodium 140, Potassium 3.8, Chloride 105, Carbon Dioxide 29, Anion Gap 9.8, BUN 55 H, Creatinine 1.80 H, Estimated Creat Clear 35, Estimated GFR 38 L, Est GFR ( Amer) 45 L, Glucose 175 H, Calcium 9.1, Magnesium 2.5 H, Total Bilirubin 0.4, AST 29 D, ALT 50, Alkaline Phosphatase 129 H, Total Protein 6.7, Albumin 4.0, Globulin 2.7, Albumin/Globulin Ratio 1.5, T riglycerides 166 H, Cholesterol 147, LDL Cholesterol Direct 75.86 L, VLDL Cholesterol 33, HDL Cholesterol 27 L, Cholesterol/HDL Ratio 5.4 H, TSH 0.59 D I & O for Labs for Last 24 Hours: Intake & Output 03/01/25 03/02/25 03/03/25 03/04/25 23:59 23:59 23:59 23:59 Intake Total 377.651 / 377.651 573.279 / 573.279 Output Total 1375 / 1675 2900 / 2900 Balance -997.349 / -1297.349 -2326.721 / -2326.721 Weight 320 lb 316 lb 11.2 oz Constitutional: Present moderate distress Head: Present normocephalic and atraumatic ENT: Present normal exam, normal oropharynx and mucous membranes moist Neck: Present normal inspection and full ROM Respiratory: Present respiratory distress and able to speak in complete sentences; Absent prolonged expiratory phase, rhonchi, stridor or wheezes Cardiac: Present S1/S2, Tachycardia and radial pulses present GI: Present soft and distention; Absent tenderness or guarding Skin: Present intact; Absent cyanosis or jaundice Neuro: Present alert, awake and oriented x 3 Extremities: Present normal inspection; Absent clubbing or cyanosis Psychiatric: Present normal affect and cooperative Meds Home Medications and Allergies Home Medications ?Medication ?Instructions ?Recorded ?Confirmed ?Type aspirin 81 mg tablet,delayed 81 mg PO DAILY 09/01/20 0 03/03/25 History release (Adult Low Dose Aspirin) tamsulosin 0.4 mg capsule (Flomax) 0.4 mg PO DAILY #30 caps 12/27/22 03/03/25 Rx carvedilol 12.5 mg tablet (Coreg) 12.5 mg PO BID #180 tabs 09/11/24 03/03/25 Rx dapagliflozin propanediol 10 mg 10 mg PO DAILY #90 tab s 09/11/24 03/03/25 Rx tablet (Farxiga) fluticasone fur. 100 mcg-umeclid 1 inh inhalation LILA Y #60 ea 09/11/24 03/03/25 Rx 62.5 mcg-vilant 25 mcg inhalat.powder (Trelegy Ellipta) levothyroxine 112 mcg tablet 224 mcg (2 x 112 mcg) PO DAILY 09/11/24 03/03/25 Rx (Synthroid) #180 tabs lisinopril 20 mg tablet 20 mg PO DAILY #90 tabs 08/2503/03/25 Rx testosterone (AndroGel) 2 pump topical DAILY #75 gra ms 09/11/24 03/03/25 Rx torsemide 100 mg tablet 50 mg (1/2 x 100 mg) PO LILA Y #90 09/11/24 03/03/25 Rx tabs pantoprazole 40 mg tablet,delayed 40 mg PO HS 03/03/25 03/03/25 History release rosuvastatin 20 mg tablet 20 mg PO HS 03/03/25 5 History spironolactone 25 mg tablet 25 mg PO DAILY 03/03/25 History New Prescriptions to Start Prescriptions: Allergies Allergy/AdvReac Type Severity Reaction Status Date / Time No Known Allergies Allergy Verified 03/03/25 08:50 Results Laboratory Findings 03/04/25 05:52 03/04/25 05:52 PT/INR, D-dimer PT 11.5 seconds (10.1-12.5) 03/03/25 14:39 INR 1.04 (0.9-1.1) 03/03/25 14:39 Abnormal lab findings: Abnormal Labs 03/03/25 03/03/25 03/03/25 12:26 14:06 14:39 WBC RBC Hgb Hct MCV MCH MPV Neut % (Auto) Lymph % (Auto) Eos % (Auto) Neut # (Auto) APTT 22.6 L VBG pH 7.29 L VBG pO2 85.5 H VBG O2 Saturation 95.6 H VBG Lactic Acid 2.9 H BUN Creatinine Estimated GFR Est GFR ( Amer) Glucose Lactate Magnesium Alkaline Phosphatase Troponin I 0.26 H NT-Pro-B Natriuret Pep Triglycerides LDL Cholesterol Direct HDL Cholesterol Cholesterol/HDL Ratio 03/03/25 03/03/25 03/03/25 18:30 20:37 Unknown WBC 12.2 H RBC 4.15 L Hgb 13.2 L Hct 40.6 L MCV 97.8 H MCH 31.8 H MPV 10.8 H Neut % (Auto) 81.0 H Lymph % (Auto) 9.5 L Eos % (Auto) Neut # (Auto) 9.9 H APTT VBG pH VBG pO2 VBG O2 Saturation VBG Lactic Acid BUN 53 H 54 H Creatinine 1.90 H 2.10 H Estimated GFR 35 L 31 L Est GFR ( Amer) 43 L 38 L Glucose 180 H D 122 H Lactate 2.4 H Magnesium 2.5 H Alkaline Phosphatase Troponin I 0.26 H NT-Pro-B Natriuret Pep 8470 H Triglycerides LDL Cholesterol Direct HDL Cholesterol Cholesterol/HDL Ratio 03/04/25 05:52 WBC RBC 4.00 L Hgb 12.7 L Hct 39.3 L MCV 98.3 H MCH 31.8 H MPV 10.9 H Neut % (Auto) 87.9 H Lymph % (Auto) 7.7 L Eos % (Auto) 0.0 L Neut # (Auto) 8.1 H APTT VBG pH VBG pO2 VBG O2 Saturation VBG Lactic Acid BUN 55 H Creatinine 1.80 H Estimated GFR 38 L Est GFR ( Amer) 45 L Glucose 175 H Lactate Magnesium 2.5 H Alkaline Phosphatase 129 H Troponin I NT-Pro-B Natriuret Pep Triglycerides 166 H LDL Cholesterol Direct 75.86 L HDL Cholesterol 27 L Cholesterol/HDL Ratio 5.4 H Assessment and Plan *Assessment and plan (1) Community acquired pneumonia: Status: Acute Category: Medical Code(s): J18.9 - Pneumonia, unspecified organism Plan Mr. Laughlin is a 70-year-old male greater than [id number] smoking last smoked around 2018 Barron diagnosis of sleep apnea on NIV, congestive heart failure COPD Was sent to the ER from cardiology office complaining of worsening respiratory distress shortness of breath dizziness and weakness. Patient found to be in shock hypotensive upon admission needing vasopressor support. Afebrile. Hemodynamically unstable. Neutrophilic predominant leukocytosis upon admission, improving. CTA upon admission, bilateral pleural effusions mild right minimal left. Adjacent consolidative changes noted, very minimal. Groundglass opacities and septal thickening noted consistent with volume overload. No evidence of pulmonary embolism Currently receiving ceftriaxone and azithromycin. Awaiting cultures. Patient also found to be in A-fib RVR upon admission, currently rate controlled and hemodynamically stable Patient on examination this morning no acute respiratory distress. Chest clear to auscultate. On room air. Off pressors. Receiving Bumex drip, cardiology following Plan: Continue Trelegy 100 inhaler along with DuoNebs 4 times daily as needed Continue ceftriaxone azithromycin pending blood culture results. Will obtain sputum cultures Incentive spirometry and flutter valve Will continue to hold off on initiating steroids at this point of time
[2025-03-04] MEDS: SODIUM CHLORIDE 3% 15ML NEB 3 ML IH (11:14)
--- NOTE | 2025-03-04 11:34 | [facility].PTEV ---
Physical Therapy Evaluation Rehab PT IP Evaluation Start: 03/03/25 16:04 Freq: ONCE Status: Active Protocol: Document 03/04/25 11:31 GAEL (Rec: 03/04/25 11:34 PHOXIAO [id number]) Subjective/History History History 70-year-old male that was seen in the cardiology office and sent to the emergency department due to complaints of shortness of breath, dizziness, lightheadedness, weakness, and abdominal swelling. He states that since Monday the symptoms have been getting worse and now he feels that he cannot catch his breath. Patient also complains of heaviness in his chest, inability to ambulate without having to stop due to extreme shortness of breath and gasping for air. The patient states that he has become extremely edematous in his bilateral legs, as well as his abdomen is very tight. The patient does have supplemental oxygen at home to use at nighttime, but he has been using it more frequently. He reports he lives with his , no BOWEN the home, but does have 1 flight of stairs in the home, he is generally independent with all mobility without AD, but does have a cane he uses if needed. Subjective Subjective Pt currently reports feeling much better, presents awake, supine, and agrees to mobility assessment. [facility] How much help from another person do you currently need... Turning from your None back to your side while in a flat bed without using bedrails? Moving from lying on None back to sitting on the side of a flat bed without using bedrails? Moving to and from a None bed to a chair ( including a wheelchair)? Standing up from a None chair using your arms? (e.g., wheelchair, bedside chair) Walking in hospital None room? Climbing 3-5 steps None with a railing? Mobility Score 24 Mobility Level [facility] Mobility Walk 250 feet or more Mobility Calculator Rehab PT IP Eval Objective Appearance Patient Behavior Appropriate Patient Orientation Person,Place,Time Difficulty following none instructions Speech Pattern Clear Ambulation Patient Able to Yes Ambulate Ambulation Observation IP General Gait No Deviations/Normal Pattern Observation Ambulation Distance 50 (feet) Ambulation Assistive None Device Ambulation Ability Independent Balance Ability to Arise Able, uses arms to help Sitting Balance Steady, safe Standing Balance Steady, wide stance Dynamic Sitting Good Balance Ability Dynamic Standing Good Balance Ability Transfers Bed Transfer Ability Supervision/Stand by Chair Transfer Independent Ability Sit to Stand Bed Independent Transfer Ability Sit to Stand Chair Independent Transfer Ability Rehab PT IP prob,goals,plan Problems Date of Evaluation: 03/04/25 Discharge Plan PT Discharge Plan Pt is currently appropriate to return home once medically stable for d/c. No acute inpatient therapy needs at this time. Eval Complexity Eval Charge Codes 16702 - Moderate Complexity PHYSICIAN CERTIFICATION: I certify the specified therapy services for Mika Laughlin are required, authorized, and reviewed every 30 days.
[2025-03-04 15:46] LABS: Anion Gap 9.1 mEq/L (5-15); Blood Urea Nitrogen 54 mg/dl (9-20); Calcium 8.7 mg/dl (8.4-10.2); Carbon Dioxide 30 mmol/L (22.0-30.0); Chloride 104 mmol/L (98-107); Creatinine Clearance Estimated 37 mL/min (50-200); Estimated Glomerular Filt Rate 40 ml/min (>60); GFR (African American) 49 ML/MIN (>60); Glucose 142 mg/dl (74-100); Potassium 4.1 mmoL/L (3.5-5.1); Sodium 139 mmol/L (136-145)
--- NOTE | 2025-03-04 16:00 | P.CONCA_ITS ---
History of Present Illness History of Present Illness Consult date: 03/04/25 Requesting physician: David Gold Consult reason: atrial fibrillation and congestive heart failure Chief complaint: SOB, CP History of present illness: This is a 70-year-old gentleman who presented to cardiology clinic yesterday with complaints of chest pain and shortness of breath as well as fatigue and feeling as if he were low to pass out. The patient was found to be in wide- complex tachycardia which was most likely atrial fibrillation with RVR and a rate in the 150s. His blood pressure was extremely low. The patient was recomm ended to go to the emergency department. While in the emergency department he was found to be in atrial fibrillation with RVR. He was cardioverted back to normal sinus rhythm. The patient was also found to have a CHF exacerbation with bilateral pleural effusions. He also did have a elevated troponin. He has been diuresed with IV Bumex. His symptoms have significantly improved today and he is feeling much better. He still denies any chest pain or pressure today. He states his shortness of breath is improved. It is still present but much better than it was. He denies any edema today. He denies any fever, chills, nausea, vomiting, diarrhea. He states he still has some orthopnea associated with his shortness of breath. [facility] Disclaimer: The information contained in this section may have been updated after the patient was seen, as this information can be updated by other users. Medical History (Updated 03/04/25 @ 16:03 by Meme Peterson APRN) Elevated troponin Acute on chronic heart failure with preserved ejection fraction (HFpEF) COPD (chronic obstructive pulmonary disease) Wide-complex tachycardia (HFpEF) heart failure with preserved ejection fraction HTN (hypertension), benign Lung nodule Restrictive lung disease COPD mixed type Dyspnea on exertion Stopped smoking with greater than 30 pack year history History of COPD Allergic rhinitis Renal cyst, right Chest pain Hyperlipidemia Surgical History History of cataract surgery History of testicular surgery History of bilateral carpal tunnel release History of back surgery History of surgery on lower extremity History of colonoscopy History of tonsillectomy Family History Other Diabetes Hypertension Social History (Updated 03/03/25 @ 15:55 by Gilma Carrillo RN) Smoking Status: Former smoker years smoked: 25 smoking status stop date: 2014 alcohol intake: never substance use type: denies use current occupational status: retired Travel in the last 8 weeks?: None household members: spouse housing: house Have you lived/traveled outside [place] in past 30 days?: No Contact w/someone who lives/traveled outside US past 30 days?: No Exposure to someone with infectious disease in past 14 days?: No Do you have a fever (greater than 100.4 F or 38 C)?: No Have you tested positive for COVID-19?: No Exposed to someone with COVID-19 in past 14 days?: No Do you have a sore throat?: No Do you have a cough?: No Do you have any weakness?: No Do you have any diarrhea?: No Are you experiencing any unusual bleeding?: No Do you have any muscle aches/pain?: No Do you have any abdominal pain?: No Are you experiencing loss of taste or smell?: No Review of Systems Review of Systems Review of systems:: pertinent systems reviewed and negative unless documented below Constitutional Constitutional: Reports fatigue, Reports lethargy and Reports weakness Eyes Eyes: Reports system reviewed and no additional complaints, except as documented ENT Ears, Nose, Mouth, and Throat: Reports system reviewed and no additional complaints, except as documented *Cardiovascular Cardiovascular: Reports system reviewed and no additional complaints, except as documented, Reports chest pain, Reports chest pain at rest, Reports chest pain with activity, Reports dyspnea, Reports dyspnea on exertion, Reports leg edema, Reports orthopnea, Reports palpitations and Reports rapid heart rate *Respiratory Respiratory: Reports system reviewed and no additional complaints, except as documented, Reports dyspnea and Reports dyspnea on exertion *Gastrointestinal Gastrointestinal: Reports system reviewed and no additional complaints, except as documented *Genitourinary Genitourinary: Reports system reviewed and no additional complaints, except as documented *Musculoskeletal Musculoskeletal: Reports system reviewed and no additional complaints, except as documented Integumentary/Breasts Skin/Breast: Reports system reviewed and no additional complaints, except as documented *Neurologic Neurologic: Reports weakness Psychiatric Psychiatric: Reports system reviewed and no additional complaints, except as documented Endocrine Endocrine: Reports system reviewed and no additional complaints, except as documented, Reports fatigue and Reports palpitations Hematologic/Lymphatic Hematologic/Lymphatic: Reports system reviewed and no additional complaints, except as documented Allergic/Immunologic Allergic/Immunologic: Reports system reviewed and no additional complaints, except as documented Exam Data for Last 24 hours Vital signs and Labs for Last 24 Hours: Temp Pulse Resp BP Pulse Ox O2 Del Method O2 Flow Rate 98.2 F 61 19 109/79 L 94 L Room Air 2 03/04/25 12:00 03/04/25 15:00 03/04/25 15:00 03/04/25 15:00 03/04/25 15:22 03/04/25 15:22 03/03/25 21:00 Laboratory Results - last 24 hr 03/03/25 18:30: Lactate 2.4 H 03/03/25 20:37: Sodium 139, Potassium 4.2, Chloride 103, Carbon Dioxide 26, Anion Gap 14.2, BUN 53 H, Creatinine 1.90 H, Estimated Creat Clear 34, Estimated GFR 35 L, Est GFR ( Amer) 43 L, Glucose 180 H D, Calcium 9.3 03/03/25 21:45: Lactate 2.0 03/04/25 05:52: WBC 9.2, RBC 4.00 L, Hgb 12.7 L, Hct 39.3 L, MCV 98.3 H, MCH 31.8 H, MCHC 32.3, RDW 14.1, Plt Count 212, MPV 10.9 H, Neut % (Auto) 87.9 H, Lymph % (Auto) 7.7 L, [place] % (Auto) 3.9, Eos % (Auto) 0.0 L, Baso % (Auto) 0.1, Neut # (Auto) 8.1 H, Lymph # (Auto) 0.7, [place] # (Auto) 0.4, Eos # (Auto) 0.0, Baso # (Auto) 0.0, Sodium 140, Potassium 3.8, Chloride 105, Carbon Dioxide 29, Anion Gap 9.8, BUN 55 H, Creatinine 1.80 H, Estimated Creat Clear 35, Estimated GFR 38 L, Est GFR ( Amer) 45 L, Glucose 175 H, Calcium 9.1, Magnesium 2.5 H, Total Bilirubin 0.4, AST 29 D, ALT 50, Alkaline Phosphatase 129 H, Total Protein 6.7, Albumin 4.0, Globulin 2.7, Albumin/Globulin Ratio 1.5, Triglycerides 166 H, Cholesterol 147, LDL Cholesterol Direct 75.86 L, VLDL Cholesterol 33, HDL Cholesterol 27 L, Cholesterol/HDL Ratio 5.4 H, TSH 0.59 D 03/04/25 15:18: Sodium 139, Potassium 4.1, Chloride 104, Carbon Dioxide 30, Anion Gap 9.1, BUN 54 H, Creatinine 1.70 H, Estimated Creat Clear 37, Estimated GFR 40 L, Est GFR ( Amer) 49 L, Glucose 142 H, Calcium 8.7 I & O for Last 24 hours: Intake & Output 03/01/25 03/02/25 03/03/25 03/04/25 23:59 23:59 23:59 23:59 Intake Total 377.651 / 377.651 977.279 / 977.279 Output Total 1375 / 1675 4720 / 4720 Balance -997.349 / -1297.349 -3742.721 / -3742.721 Weight 320 lb 316 lb 11.2 oz Microbiology Reports for the Last 24 Hours: Microbiology 03/04/25 13:25 Sputum - Expectorated Sputum Gram Stain - Final 03/03/25 14:00 Blood Blood Culture - Preliminary NO GROWTH AFTER 24 HOURS 03/03/25 14:00 Blood Blood Culture - Preliminary NO GROWTH AFTER 24 HOURS Constitutional Constitutional: no acute distress and morbidly obese *Routine HEENT Exam Head: Present normocephalic and atraumatic ENT: Present mucous membranes moist *Routine Neck Exam Neck: Present supple, full ROM and normal carotid upstroke; Absent JVD, carotid bruit or lymphadenopathy *Routine Respiratory Exam Respiratory: Present CTA bilaterally, normal respiratory effort, able to speak in complete sentences and symmetric chest movement *Routine Cardiovascular Exam Cardiovascular: Present RRR, Normal S1 and Normal S2; Absent murmur or gallop *Routine Abdominal Exam Abdominal: Present soft and normoactive bowel sounds; Absent tenderness, distended or organomegaly *Routine Extremities Exam Extremities: Present full ROM, pulses intact and normal capillary refill; Absent cyanosis, clubbing or edema *Routine Skin Exam Skin: Present intact and warm; Absent erythema *Routine Neurological Exam Neurological: Present alert, oriented X3 and CN II-XII intact; Absent sensory deficit or motor deficit Routine Psychiatric Exam Psychiatric: Present normal affect Meds Home Medications and Allergies Home Medications ?Medication ?Instructions ?Recorded ?Confirmed ?Type aspirin 81 mg tablet,delayed 81 mg PO DAILY 09/01/20 0 03/03/25 History release (Adult Low Dose Aspirin) tamsulosin 0.4 mg capsule (Flomax) 0.4 mg PO DAILY #30 caps 12/27/22 03/03/25 Rx carvedilol 12.5 mg tablet (Coreg) 12.5 mg PO BID #180 tabs 09/11/24 03/03/25 Rx dapagliflozin propanediol 10 mg 10 mg PO DAILY #90 tab s 09/11/24 03/03/25 Rx tablet (Farxiga) fluticasone fur. 100 mcg-umeclid 1 inh inhalation LILA Y #60 ea 09/11/24 03/03/25 Rx 62.5 mcg-vilant 25 mcg inhalat.powder (Trelegy Ellipta) levothyroxine 112 mcg tablet 224 mcg (2 x 112 mcg) PO DAILY 09/11/24 03/03/25 Rx (Synthroid) #180 tabs lisinopril 20 mg tablet 20 mg PO DAILY #90 tabs 08/2503/03/25 Rx testosterone (AndroGel) 2 pump topical DAILY #75 gra ms 09/11/24 03/03/25 Rx torsemide 100 mg tablet 50 mg (1/2 x 100 mg) PO LILA Y #90 09/11/24 03/03/25 Rx tabs pantoprazole 40 mg tablet,delayed 40 mg PO HS 03/03/25 03/03/25 History release rosuvastatin 20 mg tablet 20 mg PO HS 03/03/25 5 History spironolactone 25 mg tablet 25 mg PO DAILY 03/03/25 History New Prescriptions to Start Prescriptions: Allergies Allergy/AdvReac Type Severity Reaction Status Date / Time No Known Allergies Allergy Verified 03/03/25 08:50 Assessment and Plan *Assessment and plan (1) Acute on chronic heart failure with preserved ejection fraction (HFpEF): Status: Acute Category: Medical Code(s): I50.33 - Acute on chronic diastolic (congestive) heart failure (2) Atrial fibrillation with rapid ventricular response: Status: Acute Category: Medical Code(s): I48.91 - Unspecified atrial fibrillation (3) Elevated troponin: Status: Acute Category: Medical Code(s): R79.89 - Other specified abnormal findings of blood chemistry (4) HTN (hypertension), benign: Status: Acute Category: Medical Code(s): I10 - Essential (primary) hypertension (5) Hyperlipidemia: Status: Chronic Qualifiers: Hyperlipidemia type: mixed hyperlipidemia Qualified Code(s): E78.2 - Mixed hyperlipidemia Category: Medical Code(s): E78.5 - Hyperlipidemia, unspecified (6) FREDO (obstructive sleep apnea): Status: Chronic Category: Medical Code(s): G47.33 - Obstructive sleep apnea (adult) (pediatric) (7) Diastolic dysfunction: Status: Chronic Category: Medical Code(s): I51.89 - Other ill-defined heart diseases (8) COPD exacerbation: Status: Acute Category: Medical Code(s): J44.1 - Chronic obstructive pulmonary disease with (acute) exacerbation (9) Community acquired pneumonia: Status: Acute Category: Medical Code(s): J18.9 - Pneumonia, unspecified organism Plan Plan: 1. The patient was admitted to the hospital with atrial fibrillation with RVR and acute on chronic HFpEF. The patient was cardioverted yesterday and is now in sinus rhythm. His carvedilol has been stopped and he is now on metoprolol. Continue metoprolol for rate control. 2. The patient was hypotensive yesterday and started on a Levophed drip. His Levophed has been stopped and his blood pressure is now under good control. Continue metoprolol. 3. The patient does have an elevated BNP. He also had bilateral pleural effusions. He has been treated for acute on chronic HFpEF exacerbation. Continue Bumex drip at this time for continued diuresis. 4. Continue spironolactone for diuresis. 5. The patient does have an elevated troponin. This is most likely a type II non-STEMI from his atrial fibrillation with RVR and acute on chronic HFpEF. Once he is discharged from the hospital the patient would likely benefit from an outpatient ischemic evaluation. He does have a history of normal Cors 5 years ago. 6. The patient is currently on Lovenox for anticoagulation secondary to paroxysmal atrial fibrillation. Will convert him over to Xarelto prior to discharge home. 7. Continue Farxiga for his HFpEF. 8. His blood pressure is running on the lower side so we will hold off on ALFERDA/ARB/Arni at this time. 9. His LDL goal is less than 100. His LDL is 75. He is on Crestor. 10. Echocardiogram shows a normal ejection fraction with anterior hypokinesis. As mentioned above he would benefit from outpatient ischemic evaluation once he has recovered from his CHF exacerbation and pneumonia. 11. The patient does have COPD exacerbation and pneumonia. Will defer to the hospitalist and pulmonology. 12. Further recommendations will be made pending the patient's response to treatment. Thank you for the opportunity to help participate in the care of this patient. All recommendations and orders are per Dr. Pérez.
[2025-03-04] MEDS: ATORVASTATIN 40MG TABLET 40 MG PO (20:13)
[2025-03-04] MEDS: PANTOPRAZOLE 40MG TABLET 40 MG PO (20:13)
[2025-03-04] MEDS: TAMSULOSIN 0.4MG CAPSULE 0.4 MG PO (20:13)
[2025-03-05] VITALS (15 sets, daily range): BP systolic 121–155; BP diastolic 82–98; PULSE 54–76; RESP 11–22; TEMP 36.4–36.6; O2SAT 90–96; BMI 48.8
[2025-03-05] MEDS: BUMETANIDE 10 MG in 0.9 % SODIUM CHLORIDE 60 ML 5 MG IV (02:37)
[2025-03-05] MEDS: LEVOTHYROXINE 112MCG (0.112MG) TAB 224 MCG PO (06:27)
[2025-03-05 06:34] LABS: Basophils % 0.2 % (0.1-2.0); Eosinophils # 0.1 Kmm3 (0.0-0.4); Eosinophils % 0.5 % (0.1-12.0); Hematocrit 41.3 % (42.0-52.0); Hemoglobin 13.2 g/dL (14.1-18.0); Immature Granulocytes # 0.04 10^3uL; Immature Granulocytes % 0.3 %; Lymphocytes # 1.3 K/mm3 (0.7-4.5); Lymphocytes % 10.8 % (10-50); Mean Corpuscular Hemoglobin 32.2 pg (27.0-31.2); Mean Corpuscular Volume 100.7 fl (80-94); Monocytes # 0.9 K/mm3 (0.1-1.0); Monocytes % 7.6 % (1.7-9.3); Neutrophils % 80.6 % (37.0-80.0); Nucleated Red Blood Cells # 0 10^3/uL; Nucleated Red Blood Cells % 0 %; Platelet Count 193 K/mm3 (142-424); Red Cell Distribution Width 14.4 % (11.5-17.5); Red Cell Distribution Width-SD 52.6 fL; White Blood Count 12.4 K/mm3 (4.8-10.8)
[2025-03-05] MEDS: FLUTICASONE/UMECLIDIN/VILANTER 100/62.5/25MCG INHALER 1 PUFF IH (06:34)
[2025-03-05 06:52] LABS: Albumin Level 3.8 g/dl (3.5-5.0); Chloride 105 mmol/L (98-107); Potassium 4.2 mmoL/L (3.5-5.1); Sodium 142 mmol/L (136-145)
[2025-03-05 06:54] LABS: Blood Urea Nitrogen 54 mg/dl (9-20); Creatinine Clearance Estimated 45 mL/min (50-200); Estimated Glomerular Filt Rate 50 ml/min (>60); GFR (African American) 61 ML/MIN (>60)
[2025-03-05 06:55] LABS: Alanine Aminotransferase 41 U/L (12-78); Albumin/Globulin Ratio 1.5 (1.1-1.8); Alkaline Phosphatase 115 U/L (38-126); Anion Gap 8.2 mEq/L (5-15); Aspartate Amino Transferase 33 U/L (17-59); Bilirubin,Total 0.4 mg/dl (0.2-1.3); Calcium 9.1 mg/dl (8.4-10.2); Carbon Dioxide 33 mmol/L (22.0-30.0); Globulin 2.5 g/dL (1.3-3.2); Glucose 105 mg/dl (74-100); Total Protein,Serum 6.3 g/dl (6.3-8.2)
[2025-03-05 07:37] LABS: Magnesium 2.5 mg/dl (1.6-2.3)
[2025-03-05] MEDS: METOPROLOL TARTRATE 50MG TABLET 50 MG PO (08:29)
[2025-03-05] MEDS: CEFTRIAXONE SODIUM 2 GM in 0.9 % SODIUM CHLORIDE 100 ML IV (08:29)
[2025-03-05] MEDS: DAPAGLIFLOZIN PROPANEDIOL 10 MG TABLET PO (08:29)
[2025-03-05] MEDS: SPIRONOLACTONE 25MG TABLET 25 MG PO (08:29)
[2025-03-05] MEDS: ENOXAPARIN 150MG/ML SYRINGE 140 MG SUBCUT (08:30)
--- NOTE | 2025-03-05 09:18 | EXP.PULM.PN ---
Subjective *Date: 03/05/25 *Time: 12:20 Interval history: No acute respiratory events overnight. Patient admits continued improvement in his respiratory symptoms. Pulmonology Exam Inpatient Vital signs and Labs for Last 24 Hours: Temp Pulse Resp BP Pulse Ox O2 Del Method O2 Flow Rate 97.7 F 71 20 121/82 94 L Room Air 2 03/05/25 08:28 03/05/25 08:28 03/05/25 08:28 03/05/25 08:28 03/05/25 08:28 03/05/25 08:28 03/03/25 21:00 Laboratory Results - last 24 hr 03/04/25 15:18: Sodium 139, Potassium 4.1, Chloride 104, Carbon Dioxide 30, Anion Gap 9.1, BUN 54 H, Creatinine 1.70 H, Estimated Creat Clear 37, Estimated GFR 40 L, Est GFR ( Amer) 49 L, Glucose 142 H, Calcium 8.7 03/05/25 05:35: WBC 12.4 H D, RBC 4.10 L, Hgb 13.2 L, Hct 41.3 L, MCV 100.7 H, MCH 32.2 H, MCHC 32.0, RDW 14.4, Plt Count 193, MPV 11.0 H, Neut % (Auto) 80.6 H, Lymph % (Auto) 10.8, [place] % (Auto) 7.6, Eos % (Auto) 0.5, Baso % (Auto) 0.2, Neut # (Auto) 10.0 H, Lymph # (Auto) 1.3, [place] # (Auto) 0.9, Eos # (Auto) 0.1, Baso # (Auto) 0.0, Sodium 142, Potassium 4.2, Chloride 105, Carbon Dioxide 33 H, Anion Gap 8.2, BUN 54 H, Creatinine 1.40 H, Estimated Creat Clear 45, Estimated GFR 50 L, Est GFR ( Amer) 61 D, Glucose 105 H D, Calcium 9.1, Magnesium 2.5 H, Total Bilirubin 0.4, AST 33, ALT 41, Alkaline Phosphatase 115, Total Protein 6.3, Albumin 3.8, Globulin 2.5, Albumin/Globulin Ratio 1.5 Temp Pulse Resp BP Pulse Ox O2 Del Method O2 Flow Rate 97.6 F 68 17 116/80 95 Room Air 2 03/04/25 08:00 03/04/25 09:00 03/04/25 09:00 03/04/25 09:00 03/04/25 09:00 03/04/25 08:28 03/03/25 21:00 Laboratory Results - last 24 hr 03/03/25 12:26: Troponin I 0.26 H 03/03/25 14:06: VBG pH 7.29 L, VBG pCO2 51.0, VBG pO2 85.5 H, VBG HCO3 24.1, VBG Total CO2 25.7, VBG O2 Saturation 95.6 H, VBG Base Excess -2.4, VBG Lactic Acid 2.9 H 03/03/25 14:39: PT 11.5, INR 1.04, APTT 22.6 L 03/03/25 18:30: Lactate 2.4 H 03/03/25 20:37: Sodium 139, Potassium 4.2, Chloride 103, Carbon Dioxide 26, Anion Gap 14.2, BUN 53 H, Creatinine 1.90 H, Estimated Creat Clear 34, Estimated GFR 35 L, Est GFR ( Amer) 43 L, Glucose 180 H D, Calcium 9.3 03/03/25 21:45: Lactate 2.0 03/03/25 : TSH 1.66 03/04/25 05:52: WBC 9.2, RBC 4.00 L, Hgb 12.7 L, Hct 39.3 L, MCV 98.3 H, MCH 31.8 H, MCHC 32.3, RDW 14.1, Plt Count 212, MPV 10.9 H, Neut % (Auto) 87.9 H, Lymph % (Auto) 7.7 L, [place] % (Auto) 3.9, Eos % (Auto) 0.0 L, Baso % (Auto) 0.1, Neut # (Auto) 8.1 H, Lymph # (Auto) 0.7, [place] # (Auto) 0.4, Eos # (Auto) 0.0, Baso # (Auto) 0.0, Sodium 140, Potassium 3.8, Chloride 105, Carbon Dioxide 29, Anion Gap 9.8, BUN 55 H, Creatinine 1.80 H, Estimated Creat Clear 35, Estimated GFR 38 L, Est GFR ( Amer) 45 L, Glucose 175 H, Calcium 9.1, Magnesium 2.5 H, Total Bilirubin 0.4, AST 29 D, ALT 50, Alkaline Phosphatase 129 H, Total Protein 6.7, Albumin 4.0, Globulin 2.7, Albumin/Globulin Ratio 1.5, Triglycerides 166 H, Cholesterol 147, LDL Cholesterol Direct 75.86 L, VLDL Cholesterol 33, HDL Cholesterol 27 L, Cholesterol/HDL Ratio 5.4 H, TSH 0.59 D I & O for Labs for Last 24 Hours: Intake & Output 03/02/25 03/03/25 03/04/25 03/05/25 23:59 23:59 23:59 23:59 Intake Total 377.651 / 363.723 8978.279 / 2211.279 701 / 701 Output Total 1375 / 1675 6850 / 6850 1974 Balance -997.349 / -1297.349 -4638.721 / -4638.721 -1274 / -1274 Weight 320 lb 316 lb 11.2 oz 310 lb 14.4 oz Intake & Output 03/01/25 03/02/25 03/03/25 03/04/25 23:59 23:59 23:59 23:59 Intake Total 377.651 / 377.651 573.279 / 573.279 Output Total 1375 / 1675 2900 / 2900 Balance -997.349 / -1297.349 -2326.721 / -2326.721 Weight 320 lb 316 lb 11.2 oz Microbiology Reports for the Last 24 Hours: Microbiology 03/04/25 13:25 Sputum - Expectorated Sputum Gram Stain - Final 03/03/25 14:00 Blood Blood Culture - Preliminary NO GROWTH AFTER 24 HOURS 03/03/25 14:00 Blood Blood Culture - Preliminary NO GROWTH AFTER 24 HOURS Constitutional: Present moderate distress Head: Present normocephalic and atraumatic ENT: Present normal exam, normal oropharynx and mucous membranes moist Neck: Present normal inspection and full ROM Respiratory: Present respiratory distress and able to speak in complete sentences; Absent prolonged expiratory phase, rhonchi, stridor or wheezes Cardiac: Present S1/S2, Tachycardia and radial pulses present GI: Present soft and distention; Absent tenderness or guarding Skin: Present intact; Absent cyanosis or jaundice Neuro: Present alert, awake and oriented x 3 Extremities: Present normal inspection; Absent clubbing or cyanosis Psychiatric: Present normal affect and cooperative Assessment and Plan *Assessment and plan (1) Community acquired pneumonia: Status: Acute Category: Medical Code(s): J18.9 - Pneumonia, unspecified organism Plan Mr. Laughlin is a 70-year-old male greater than [id number] smoking last smoked around 2018 [place]ron diagnosis of sleep apnea on NIV, congestive heart failure COPD Was sent to the ER from cardiology office complaining of worsening respiratory distress shortness of breath dizziness and weakness. Patient found to be in shock hypotensive upon admission needing vasopressor support. Afebrile. Hemodynamically unstable. Neutrophilic predominant leukocytosis upon admission, improving. CTA upon admission, bilateral pleural effusions mild right minimal left. Adjacent consolidative changes noted, very minimal. Groundglass opacities and septal thickening noted consistent with volume overload. No evidence of pulmonary embolism Currently receiving ceftriaxone and azithromycin. Awaiting cultures. Patient also found to be in A-fib RVR upon admission, currently rate controlled and hemodynamically stable Patient on examination this morning no acute respiratory distress. Chest clear to auscultate. On room air. Off pressors. Receiving Bumex drip, cardiology following Interval update: No acute respiratory vents overnight. Continue to remain on room air. Using NIV at night for his sleep apnea. Plan: Continue Trelegy 100 inhaler along with DuoNebs 4 times daily as needed Continue ceftriaxone azithromycin pending blood culture results. Antibiotics can be weaned to cefdinir to complete total of 5-day course upon discharge Incentive spirometry and flutter valve Will continue to hold off on initiating steroids at this point of time # Thank you for involving pulmonary in this patient care. Will follow patient in pulmonary clinic as previously scheduled.
[2025-03-05] MEDS: BUMETANIDE 1MG/4ML VIAL 2 MG IV (09:36)
--- NOTE | 2025-03-05 13:11 | P.DS_ITS ---
General Admission date:: 03/03/25 Discharge date: 03/05/25 HPI HPI HPI: Mr. Laughlin is a 70-year-old male that was seen in the cardiology office and sent to the emergency department due to complaints of shortness of breath, dizziness, lightheadedness, weakness, and abdominal swelling. He states that since Monday the symptoms have been getting worse and now he feels that he cannot catch his breath. Patient also complains of heaviness in his chest, inability to ambulate without having to stop due to extreme shortness of breath and gasping for air. The patient states that he has become extremely edematous in his bilateral legs, as well as his abdomen is very tight. The patient does have supplemental oxygen at home to use at nighttime, but he has been using it more frequently. The patient does state that he takes furosemide for fluid but lately it has not made him urinate nearly as much as he normally does. Mr. Laughlin also states that recently he feels that his heart rate is much faster than it should be. He states that he has checked his blood pressure at home recently and his heart rate has been from 130-160's on the blood pressure cuff monitor. He does have a history of congenital solitary kidney, HFpEF, polycythemia requiring phlebotomy, chronic pain, COPD, and testosterone hormone therapy. In the ER a workup was completed and EKG showed that the patient was in atrial fibrillation with RVR. He was also complaining of chest pain and extreme shortness of breath. Workup was completed including a CBC, CMP, coags, VBG, electrolyte levels, serial troponins, TSH. Imaging including a chest x-ray showing pneumonia, CTA of the chest and abdomen and pelvis. BNP was found to be 8470, troponin 0.26, creatinine elevated at 2.10, and leukocytosis at 12.2. The patient was synchronized cardioverted at 200 J and converted back to normal sinus rhythm with a left bundle branch block. After cardioversion the patient became hypotensive with systolics in the 70s and a norepinephrine drip was initiated to maintain blood pressure. Patient responded well to medication and is maintaining systolic pressures between 90 and 100. Heart rate is remaining in the 60s and patient states that his chest pain is resolving. Patient was also given ceftriaxone and azithromycin in the emergency department for community-acquired pneumonia. In addition to antibiotics patient was also given Solu-Medrol and p.o. Eliquis. The emergency room physician consulted hospital medicine for admission and further management. Cardiology and pulmonology are also consulted to help further manage the patient. Patient was agreeable to admission for further workup and management. Hospital Course Hospital Course Hospital Course: Patient remains hemodynamically stable and admitted to the stepdown unit for close monitoring. Vital signs have been within normal limits systolics in the 110s, heart rate has remained regular and in the 60s. Patient denies chest pain or discomfort. Patient states that his edema and shortness of breath is better. On room air. Evaluated by pulmonology and cardiology. Overall doing well. Transition to oral antibiotics to complete course. Stable discharge home. Problems addressed as follows: #CHF #COPD exacerbation #Pneumonia #Dyspena A-fib with RVR ? Patient was initiated on Bumex 2 mcg IV on admission and responded well to aggressive diuresis. Negative almost 7 L from time of admission to time of discharge. Initially on nasal cannula oxygen, weaned to room air by day of discharge. Maintaining sats in the 90s. Pulmonology consulted for evaluation and assistance as well as follow-up planning. Initially on ceftriaxone and azithromycin. Continue home Trelegy inhaler. Initiated on DuoNebs during admission. Will transition to cefdinir to complete 5 days total of antibiotics. Steroids during admission, held with no further steroids at discharge. White count with slight elevation suspect secondary to steroids. Clinically improved. BNP was elevated at 8400 consistent with CHF on admission. Troponin elevated to 0.26. Consistent with type II NSTEMI secondary to his volume overload and CHF exacerbation/COPD exacerbation. Cardiology assisted with care in regard to CHF and NSTEMI. Patient was cardioverted in the emergency room and maintained normal sinus rhythm with left bundle branch block thereafter. Initially on norepinephrine due to hypotension, was weaned and maintain normotensive state. Continue metoprolol 50 mg twice daily for rate control. Holding carvedilol at discharge. Initially on Lovenox for anticoagulation, transitioned to Eliquis at discharge. - Previous echo with preserved EF. Repeat echo With preserved EF but has mild elevation of RVSP. ALICE: -Kidney function has improved from 2.1 on admission to 1.4 by day of discharge. Appears at baseline. Potassium 4.2, magnesium 2.5. BUN improving with diuresis.. Obesity ?Patient's morbid obesity, BMI of 50 complicates all aspects of care. #Low testosterone ?CT a of chest with PE protocol was performed in the ER to rule out PE, CTA was negative. Patient at risk for hypercoagulation status due to testosterone usage. On anticoagulation above for A-fib #Hypertension #Hyperlipidemia #Congenital single kidney #Hypothyroidism #GERD #BPH ? Home medication chronic head continue levothyroxine 224 mcg daily TSH well- controlled within normal range Total time spent on discharge 32 minutes in counseling, documentation, chart review, and direct care with patient. Exam Data for Last 24 hours Vital signs and Labs for Last 24 Hours: Temp Pulse Resp BP Pulse Ox O2 Del Method O2 Flow Rate 97.6 F 62 20 129/93 H 95 Room Air 2 03/05/25 12:00 03/05/25 12:00 03/05/25 12:00 03/05/25 12:00 03/05/25 12:00 03/05/25 12:00 03/03/25 21:00 Laboratory Results - last 24 hr 03/04/25 15:18: Sodium 139, Potassium 4.1, Chloride 104, Carbon Dioxide 30, Anion Gap 9.1, BUN 54 H, Creatinine 1.70 H, Estimated Creat Clear 37, Estimated GFR 40 L, Est GFR ( Amer) 49 L, Glucose 142 H, Calcium 8.7 03/05/25 05:35: WBC 12.4 H D, RBC 4.10 L, Hgb 13.2 L, Hct 41.3 L, MCV 100.7 H, MCH 32.2 H, MCHC 32.0, RDW 14.4, Plt Count 193, MPV 11.0 H, Neut % (Auto) 80.6 H , Lymph % (Auto) 10.8, [place] % (Auto) 7.6, Eos % (Auto) 0.5, Baso % (Auto) 0.2, Neut # (Auto) 10.0 H, Lymph # (Auto) 1.3, [place] # (Auto) 0.9, Eos # (Auto) 0.1, Baso # (Auto) 0.0, Sodium 142, Potassium 4.2, Chloride 105, Carbon Dioxide 33 H, Anion Gap 8.2, BUN 54 H, Creatinine 1.40 H, Estimated Creat Clear 45, Estimated GFR 50 L, Est GFR ( Amer) 61 D, Glucose 105 H D, Calcium 9.1, Magnesium 2.5 H, Total Bilirubin 0.4, AST 33, ALT 41, Alkaline Phosphatase 115, Total Protein 6.3, Albumin 3.8, Globulin 2.5, Albumin/Globulin Ratio 1.5 I & O for Last 24 hours: Intake & Output 03/02/25 03/03/25 03/04/25 03/05/25 23:59 23:59 23:59 23:59 Intake Total 377.651 / 432.252 9467.279 / 2211.279 721 / 721 Output Total 1375 / 1675 6850 / 6850 3650 / 3650 Balance -997.349 / -1297.349 -4638.721 / -4638.721 -2929 / -2929 Weight 145.15 kg 143.653 kg 141.022 kg Microbiology Reports for the Last 24 Hours: Microbiology 03/03/25 16:50 Anus CRE Surveillance Culture - Final 03/04/25 13:25 Sputum - Expectorated Sputum Gram Stain - Final 03/04/25 13:25 Sputum - Expectorated Sputum Sputum Culture - Preliminary 03/03/25 14:00 Blood Blood Culture - Preliminary NO GROWTH AFTER 24 HOURS 03/03/25 14:00 Blood Blood Culture - Preliminary NO GROWTH AFTER 24 HOURS Constitutional Constitutional: no acute distress, morbidly obese, chronically ill appearing and cooperative *Routine HEENT Exam Head: Present normocephalic Eye: Present EOMI and PERRL ENT: Present mucous membranes moist *Routine Neck Exam Neck: Present supple; Absent lymphadenopathy *Routine Respiratory Exam Respiratory: Present CTA bilaterally and distant breath sounds; Absent rhonchi, wheezes or crackles *Routine Cardiovascular Exam Cardiovascular: Present irregularly irregular *Routine Abdominal Exam Abdominal: Present soft and normoactive bowel sounds; Absent tenderness *Routine Rectal Exam Patient deferred: visual exam *Routine Exam Patient deferred: penile exam *Routine Extremities Exam Extremities: Present edema (Trace bilateral lower extremity); Absent cyanosis or clubbing *Routine Skin Exam Skin: Present intact and warm; Absent rash *Routine Neurological Exam Neurological: Present alert, oriented X3 and moving all extremities; Absent altered mental status Results Data Completed and Pending Labs on day of discharge: Labs from last 24 hours 03/05/25 03/04/25 05:35 15:18 WBC 12.4 H D RBC 4.10 L Hgb 13.2 L Hct 41.3 L MCV 100.7 H MCH 32.2 H MCHC 32.0 RDW 14.4 Plt Count 193 MPV 11.0 H Neut % (Auto) 80.6 H Lymph % (Auto) 10.8 [place] % (Auto) 7.6 Eos % (Auto) 0.5 Baso % (Auto) 0.2 Neut # (Auto) 10.0 H Lymph # (Auto) 1.3 [place] # (Auto) 0.9 Eos # (Auto) 0.1 Baso # (Auto) 0.0 Sodium 142 139 Potassium 4.2 4.1 Chloride 105 104 Carbon Dioxide 33 H 30 Anion Gap 8.2 9.1 BUN 54 H 54 H Creatinine 1.40 H 1.70 H Estimated Creat Clear 45 37 Estimated GFR 50 L 40 L Est GFR ( Amer) 61 D 49 L Glucose 105 H D 142 H Calcium 9.1 8.7 Magnesium 2.5 H Total Bilirubin 0.4 AST 33 ALT 41 Alkaline Phosphatase 115 Total Protein 6.3 Albumin 3.8 Globulin 2.5 Albumin/Globulin Ratio 1.5 Preliminary micro results at discharge 03/04/25 13:25 Sputum Culture - Preliminary Sputum - Expectorated Sputum 03/03/25 14:00 Blood Culture - Preliminary Blood NO GROWTH AFTER 24 HOURS 03/03/25 14:00 Blood Culture - Preliminary Blood NO GROWTH AFTER 24 HOURS DS: Diagnosis Discharge Diagnosis (1) Community acquired pneumonia: Status: Acute Code(s): J18.9 - Pneumonia, unspecified organism Meds Home Medications and Allergies Home Medications ?Medication ?Instructions ?Recorded ?Confirmed ?Type tamsulosin 0.4 mg capsule (Flomax) 0.4 mg PO DAILY #30 caps 12/27/22 03/03/25 Rx dapagliflozin propanediol 10 mg 10 mg PO DAILY #90 tab s 09/11/24 03/10/25 Rx tablet (Farxiga) fluticasone fur. 100 mcg-umeclid 1 inh inhalation LILA Y #60 ea 09/11/24 03/10/25 Rx 62.5 mcg-vilant 25 mcg inhalat.powder (Trelegy Ellipta) levothyroxine 112 mcg tablet 224 mcg (2 x 112 mcg) PO DAILY 09/11/24 03/10/25 Rx (Synthroid) #180 tabs testosterone (AndroGel) 2 pump topical DAILY #75 gra ms 09/11/24 03/10/25 Rx cefdinir 300 mg capsule 300 mg PO BID 3 days #6 caps 03/05/25 03/10/25 Rx apixaban 5 mg tablet (Eliquis) 5 mg PO BID #180 tabs 0 03/10/25 03/10/25 Rx aspirin 81 mg tablet,delayed 81 mg PO DAILY #90 tabs 0 03/10/25 03/10/25 Rx release (Adult Low Dose Aspirin) metoprolol succinate 100 mg 100 mg PO DAILY #90 tabs 0 03/10/25 03/10/25 Rx tablet,extended release 24 hr pantoprazole 40 mg tablet,delayed 40 mg PO HS #90 tabs 03/10/25 03/10/25 Rx release rosuvastatin 20 mg tablet 20 mg PO HS #90 tabs 5 03/10/25 Rx semaglutide (weight loss) 0.25 0.25 mg (0.5 mL) SQ Q7D #2 mL 03/10/25 03/10/25 Rx mg/0.5 mL subcutaneous pen injector (Wegovy) spironolactone 25 mg tablet 25 mg PO DAILY #90 tabs 03/10/25 Rx torsemide 100 mg tablet 50 mg (1/2 x 100 mg) PO LILA Y #90 03/10/25 Rx tabs New Prescriptions to Start Prescriptions: David Corrales Allergies Allergy/AdvReac Type Severity Reaction Status Date / Time No Known Allergies Allergy Verified 03/10/25 10:28 Discharge Plan Disposition Patient Disposition: Home, Self-Care Condition: Fair Discharge Order Discharge Orders: Discharge Order (Routine); Ordered 03/05/25 Ordered By: David Gold Follow up Plan Follow up with: Seferino Astudillo PA [Physician Coating Engineer, Cardiology] - 03/12/25 10:45 am Neva Barrett MD [Physician, Pulmonology] - 04/08/25 1:00 pm Mikie Bermudez MD [Primary Care Provider, Family Practice] - 03/17/25 10:00 am Prescriptions/Medication Reconciliation: New cefdinir 300 mg capsule 300 mg PO BID 3 Days Qty: 6 0RF Continued testosterone [AndroGel] 20.25 mg/1.25 gram (1.62 %) gel in metered-dose pump 2 pump topical DAILY Qty: 75 5RF Patient Comments: pt states he takes when he remembers Rx Instructions: apply 1 pump amount over max area of EACH upper arm and shoulder levothyroxine [Synthroid] 112 mcg tablet 224 mcg PO DAILY Qty: 180 4RF dapagliflozin propanediol [Farxiga] 10 mg tablet 10 mg PO DAILY Qty: 90 5RF Trelegy Ellipta 100-62.5-25 mcg blister with device 1 inh inhalation DAILY Qty: 60 10RF tamsulosin [Flomax] 0.4 mg capsule 0.4 mg PO DAILY Qty: 30 3RF Patient Comments: patient states he takes when he remembers Discontinued torsemide 100 mg tablet 50 mg PO DAILY Qty: 90 2RF carvedilol [Coreg] 12.5 mg tablet 12.5 mg PO BID Qty: 180 3RF Rx Instructions: must administer with a meal/food No Action Eliquis 5 mg tablet 5 mg PO BID Qty: 180 3RF aspirin [Adult Low Dose Aspirin] 81 mg tablet,delayed release (DR/EC) 81 mg PO DAILY Qty: 90 3RF metoprolol succinate 100 mg tablet extended release 24 hr 100 mg PO DAILY Qty: 90 3RF pantoprazole 40 mg tablet,delayed release (DR/EC) 40 mg PO HS Qty: 90 3RF rosuvastatin 20 mg tablet 20 mg PO HS Qty: 90 3RF spironolactone 25 mg tablet 25 mg PO DAILY Qty: 90 3RF Wegovy 0.25 mg/0.5 mL pen injector 0.25 mg SQ Q7D Qty: 2 0RF torsemide 100 mg tablet 50 mg PO DAILY Qty: 90 2RF Problem Reconciliation Problems Reviewed?: Yes Patient Discharge Instructions ACTIVITY: Continue current activity DIET: continue same diet Patient Instructions: Chronic Obstructive Pulmonary Disease, DI for Heart Failure, DI for Hypotension, Stop Light COPD, Stop Light Heart Failure Print Language: Lithuanian Providers Primary Care Provider: Mikie Bermudez Admit Provider: David Gold Attending Provider: David Gold
--- NOTE | 2025-03-05 15:05 | P.PN_ITS ---
Subjective Subjective Date: 03/05/25 Time: 09:30 Interval history: Patient has done very well overnight. Diuresed a total of 7 L. He is back in A-fib today but rate controlled. Patient states today he feels comfortable sitting with his CPAP mask on all the time when he is at rest at home. Exam Data for Last 24 hours Vital signs and Labs for Last 24 Hours: Temp Pulse Resp BP Pulse Ox O2 Del Method O2 Flow Rate 97.6 F 76 17 137/83 96 Room Air 2 03/05/25 12:00 03/05/25 13:00 03/05/25 13:00 03/05/25 13:00 03/05/25 13:00 03/05/25 13:00 03/03/25 21:00 Laboratory Results - last 24 hr 03/04/25 15:18: Sodium 139, Potassium 4.1, Chloride 104, Carbon Dioxide 30, Anion Gap 9.1, BUN 54 H, Creatinine 1.70 H, Estimated Creat Clear 37, Estimated GFR 40 L, Est GFR ( Amer) 49 L, Glucose 142 H, Calcium 8.7 03/05/25 05:35: WBC 12.4 H D, RBC 4.10 L, Hgb 13.2 L, Hct 41.3 L, MCV 100.7 H, MCH 32.2 H, MCHC 32.0, RDW 14.4, Plt Count 193, MPV 11.0 H, Neut % (Auto) 80.6 H , Lymph % (Auto) 10.8, [place] % (Auto) 7.6, Eos % (Auto) 0.5, Baso % (Auto) 0.2, Neut # (Auto) 10.0 H, Lymph # (Auto) 1.3, [place] # (Auto) 0.9, Eos # (Auto) 0.1, Baso # (Auto) 0.0, Sodium 142, Potassium 4.2, Chloride 105, Carbon Dioxide 33 H, Anion Gap 8.2, BUN 54 H, Creatinine 1.40 H, Estimated Creat Clear 45, Estimated GFR 50 L, Est GFR ( Amer) 61 D, Glucose 105 H D, Calcium 9.1, Magnesium 2.5 H, Total Bilirubin 0.4, AST 33, ALT 41, Alkaline Phosphatase 115, Total Protein 6.3, Albumin 3.8, Globulin 2.5, Albumin/Globulin Ratio 1.5 I & O for Last 24 hours: Intake & Output 03/02/25 03/03/25 03/04/25 03/05/25 23:59 23:59 23:59 23:59 Intake Total 377.651 / 338.718 5816.279 / 2211.279 1141 / 1141 Output Total 1375 / 1675 6850 / 6850 3650 / 3650 Balance -997.349 / -1297.349 -4638.721 / -4638.721 -2509 / -2509 Weight 320 lb 316 lb 11.2 oz 310 lb 14.4 oz Microbiology Reports for the Last 24 Hours: Microbiology 03/03/25 14:00 Blood Blood Culture - Preliminary NO GROWTH AFTER 48 HOURS 03/03/25 14:00 Blood Blood Culture - Preliminary NO GROWTH AFTER 48 HOURS 03/03/25 16:50 Anus CRE Surveillance Culture - Final 03/04/25 13:25 Sputum - Expectorated Sputum Gram Stain - Final 03/04/25 13:25 Sputum - Expectorated Sputum Sputum Culture - Preliminary Constitutional Constitutional: no acute distress and cooperative *Routine HEENT Exam Eye: Present PERRL *Routine Respiratory Exam Respiratory: Present CTA bilaterally; Absent accessory muscle use, wheezes or crackles *Routine Cardiovascular Exam Cardiovascular: Present Normal S1, Normal S2 and irregularly irregular; Absent murmur, gallop or rubs *Routine Abdominal Exam Abdominal: Present soft; Absent tenderness Comments: Severe central adiposity *Routine Extremities Exam Extremities: Present pulses intact; Absent cyanosis or edema *Routine Skin Exam Skin: Present intact; Absent erythema or wounds *Routine Neurological Exam Neurological: Present alert and oriented X3 Routine Psychiatric Exam Psychiatric: Present cooperative Progress Note: A&P Assessment and plan (1) Community acquired pneumonia: Status: Acute (2) Elevated troponin: Status: Acute (3) Acute on chronic heart failure with preserved ejection fraction (HFpEF): Status: Acute (4) Atrial fibrillation with rapid ventricular response: Status: Acute (5) COPD exacerbation: Status: Acute Assessment and Plan Assessment and Plan for All Diagnoses:: A-fib RVR - New diagnosis this admission in the setting of community-acquired pneumonia - Patient symptomatic for 3 days with heart rate 150s before presentation to our clinic. He was transferred to the emergency room and was hypotensive in the 70s and was emergently cardioverted. He felt significantly better following this and diuresed well. - He is back in A-fib today but rate controlled and asymptomatic so we discussed possibility he could have had A-fib off and on for quite some time but asymptomatic - He needs 2-week heart monitor at discharge to assess A-fib burden and rate control - Home with Eliquis and metoprolol Acute on chronic HFpEF - Patient presented with severe volume overload and A-fib RVR - Echo here shows normal BiV function - He diuresed 7 L - Continue Aldactone, Farxiga, A-fib rate control, torsemide. May need double torsemide as needed for edema or shortness of breath. Long-term goal is focused on weight loss and A-fib rate control. Community-acquired pneumonia - On antibiotics and nebulizer per pulmonology Acute on chronic respiratory failure - Patient chronically short of breath and states he wears his CPAP at home even when resting in the chair because it helps him breathe better - We discussed his severe central adiposity as most likely contributing factor. - Consider outpatient GLP-1, needs outpatient pulmonology follow-up Morbid obesity, BMI 48 - Patient needs aggressive weight loss via diet and exercise, consider outpatient GLP-1 Elevated troponin - Mild troponin elevation in the setting of respiratory failure and A-fib RVR - No wall motion changes on echo - Continue aspirin, Eliquis, beta-ora, statin. Patient will undergo outpatient ischemic workup once he has recovered from pneumonia. CV stable for discharge home. He needs 2-week monitor placed at discharge and will need follow-up in our office within 1 week. CV DC medications Aspirin 81 mg 1 p.o. daily Eliquis 5 mg 1 p.o. twice daily Aldactone 25 mg 1 p.o. daily Farxiga 10 mg 1 p.o. daily Atorvastatin 40 mg 1 p.o. daily Toprol XL 100 mg 1 p.o. daily Torsemide 50 mg 1-2 tabs daily as needed for edema
--- NOTE | 2025-03-07 10:39 | SW/DCPLANNER ---
Spoke with patient on the phone. Patient stated that he is feeling well just a little weak. Patient stated that he is aware of his upcoming appointments. Patient stated that he was able to get his new medicine picked up from clinic pharmacy. Patient stated that he has no concerns or questions at this time. Iván Owusu
== END 2025-03-05 14:00 | disposition home or self-care (01) | DRG 280 ==
LOC: ER 09:29 → ICU 14:10
PROVIDERS: Admitting Provider Internal Medicine Adolescent Medicine; Emergency Provider Emergency Medicine; PCP Family Medicine; Visit Provider Internal Medicine Adolescent Medicine
DX: I48.0 Paroxysmal atrial fibrillation (principal); I50.33 Acute on chronic diastolic (congestive) heart failure; I21.A1 Myocardial infarction type 2; J18.9 Pneumonia, unspecified organism; T81.11XA Postprocedural cardiogenic shock, initial encounter; J96.21 Acute and chronic respiratory failure with hypoxia; J44.0 Chronic obstructive pulmonary disease with (acute) lower respiratory infection; I13.0 Hypertensive heart and chronic kidney disease with heart failure and stage 1 through stage 4 chronic kidney disease, or unspecified chronic kidney disease; N17.9 Acute kidney failure, unspecified; Z68.42 Body mass index [BMI] 45.0-49.9, adult; Q60.0 Renal agenesis, unilateral; J44.1 Chronic obstructive pulmonary disease with (acute) exacerbation; E66.01 Morbid (severe) obesity due to excess calories; E78.5 Hyperlipidemia, unspecified; E03.9 Hypothyroidism, unspecified; K21.9 Gastro-esophageal reflux disease without esophagitis; N40.0 Benign prostatic hyperplasia without lower urinary tract symptoms; D72.829 Elevated white blood cell count, unspecified; T38.0X5A Adverse effect of glucocorticoids and synthetic analogues, initial encounter; Y92.239 Unspecified place in hospital as the place of occurrence of the external cause; I44.7 Left bundle-branch block, unspecified; G47.33 Obstructive sleep apnea (adult) (pediatric); E29.1 Testicular hypofunction; I95.81 Postprocedural hypotension; N18.9 Chronic kidney disease, unspecified; Z87.891 Personal history of nicotine dependence; Z79.82 Long term (current) use of aspirin; Z79.890 Hormone replacement therapy; Z79.899 Other long term (current) drug therapy; Y84.8 Other medical procedures as the cause of abnormal reaction of the patient, or of later complication, without mention of misadventure at the time of the procedure
CPT/HCPCS: 36415; 71045; 71275; 74174; 80048; 80053; 80061; 82803; 83605; 83735; 83880; 84439; 84443; 84484; 85025; 85610; 85730; 87040; 87070; 87081; 87205; 93005; 93306; 97162; 97166; J0456; J0696; J1650; J1939; J2919; J7050; J7120; Q9957; Q9967

== ENCOUNTER 2025-03-06 10:28 | Outpatient (CLI) | payer MEDICARE, SELFPAY ==
--- OUTSIDE RECORDS SUMMARY | 2025-03-06 10:45 | XMS_ITS | Clinical Summary ---
Author Organization [facility] Address [address] [place] [address] Care Team Providers Care Applications System Analyst Name Role Phone Mikie Bermudez MD Primary Care Provider [phone] Social History Tobacco Use Types Packs/Day Years [...] (2 of 2 - PCV) 08/10/2021 08/10/2020 [id number] Vaccine (4 - 2023- season) 2024 07/13/2022, [...] patient's age to complete this topic [place] [address] [place] [address] MEDICARE Care Teams Applications System Analyst Relationship Specialty Start Date End Date Mikie Bermudez MD PCP - General 02/05/21
--- OUTSIDE RECORDS SUMMARY | 2025-03-06 10:45 | XMS_ITS ---
Author Organization Unknown TREATMENT PLAN [facility] Start Date Provider Encounter for Check-up [id number] [facility]
--- OUTSIDE RECORDS SUMMARY | 2025-03-06 10:45 | XMS_ITS | Clinical Summary ---
Author Organization [facility] Address [facility] [place] [address] Phone Care Team Providers Care Leather Scraper Name Role Phone Vilma Moreno MD, [place] Primary Care Provider + Allergies No known [...] TUNNEL RELEASE; Surgeon: Andrés Odom MD; Location: [facility]; Service: Hand CARPAL TUNNEL RELEASE 10/25/2012 Hand/Right RIGHT CARPAL TUNNEL RELEASE ; Surgeon: Andrés Odom MD; Location: [facility]; Service: Hand Medical History Medical History Date [...] topic Insurance PPO on file Care Teams Leather Scraper Relationship Specialty Start Date End Date Josemanuel Esparza MD [address] [place] [phone] PCP - General Family Medicine 12/01/11
--- OUTSIDE RECORDS SUMMARY | 2025-03-06 10:45 | XMS_ITS | Clinical Summary ---
Author Organization [facility] Address [address] [place] [id number] Care Team Providers Care Housekeeper Home Name Role Phone Mikie Bermudez MD Primary Care Provider Andrés Mansfield MD Unavailable Allergies No known [...] specified HF chronicity, unspecified heart failure type ([facility]) 01/26/2023 Chronic systolic congestive heart failure ([facility]) 01/26/2023 Hypoxia 01/26/2023 Mucopurulent chronic bronchitis ([facility]) 2022 Class 3 severe obesity due t [...] 09/25/2024 Influenza Vaccination (Season Ended) 2025 Insurance [facility] MEDICARE MEDICAID [place] Care Teams Housekeeper Home Relationship Specialty [place] [address] [place] [address] PCP - General Family Medicine 01/25/23 Andrés Mansfield MD [address] [place] [address] Interventional Cardiology 01/26/23
== END 2025-03-06 23:59 | disposition home or self-care (01) ==
LOC: RT 10:30
PROVIDERS: PCP Family Medicine; Visit Provider Physician Assistant
DX: I47.10 Supraventricular tachycardia, unspecified (principal); I49.1 Atrial premature depolarization; I49.3 Ventricular premature depolarization
CPT/HCPCS: 93225; 93227

== ENCOUNTER 2025-03-10 09:55 | Outpatient (CLI) | payer MEDICARE, SELFPAY ==
--- OUTSIDE RECORDS SUMMARY | 2025-03-10 10:01 | XMS_ITS | Clinical Summary ---
Author Organization [facility] Address [address] [facility] [address] [place] [address] Phone Care Team Providers Care Wallcovering Hanger Name Role Phone Eduarda Rdz Unavailable [phone] Conditions or Problems Problem Name Problem Code Onset Date Status Entry Date Provider Comment Standard Description Annotate FOLLOW-UP EXAMINATION, AFTER SURGERY NEC Z09 (ICD-10-CM ) 05/16 Active 05/16 Naun Javed MD Encounter for follow-up examination after completed treatment for conditions other than malignant neoplasm HERNIATED LUMBAR DISC 245191622 (SNOMED CT) 04/22 Active 04/22 Naun Javed MD Prolapsed lumbar intervertebral disc SPONDYLOSIS, 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 (ICD-10-CM ) 02/28 Active 02/28 Naun Javed MD Spondylosis without myelopathy or radiculopathy, cervical region Take Note of HEADACHE 17053888 (SNOMED CT) 02/28 Active 02/28 Maggie Rich MA Headache Take Note of JOINT STIFFNESS 03994527 (SNOMED CT) 02/28 Active 02/28 Maggie Rich MA Joint stiffness Take Note of MUSCLE CRAMPS 50046313 (SNOMED CT) 02/28 Active 02/28 Maggie Rich MA Cramp Take Note of BACK PAIN 119881485 (SNOMED CT) 02/28 Active 02/28 Maggie Rich MA Backache Take Note of COUGH 09797184 (SNOMED CT) 02/28 Active 02/28 Maggie Rich MA Cough Take Note of MALAISE AND FATIGUE 052236996 (SNOMED CT) 02/28 Active 02/28 Maggie Rich MA Malaise and fatigue Take Note of SWEATING 596812096 (SNOMED CT) 02/28 Active 02/28 Maggie Rich MA Sweating Take Note of THYROID DISEASE, HX OF 439957504 (SNOMED CT) 02/28 Active 02/28 Maggie Rich MA H/O: thyroid disorder Take Note of HYPERCHOLESTE ROLEMIA 25847139 (SNOMED CT) 02/28 Active 02/28 Maggie Rich MA Hypercholesterole hannah Medications Medication Instructions Start Date Stop Date Generic Name [facility] Provider ST ARZATE ASPIRIN 81 MG TBE -Garduno ASPIRIN [id number] Naun Javed MD CRESTOR 20 MG TABS -Garduno ROSUVASTATIN CALCIUM 36567367607 Naun Javed MD AMLODIPINE BESYLATE 10 MG TABS -Garduno AMLODIPINE BESYLATE 98498290196 Naun Javed MD BENAZEPRIL HCL 40 MG TABS - [place] HCL 50632583410 Naun Javed MD LEVOTHYROXINE SODIUM 125 MCG TABS - LEVOTHYROXINE SODIUM [id number] Naun Javed MD OXYCODONE-ACETAMI NOPHEN 10-325 MG TABS -Garduno OXYCODONE-ACETAMI NOPHEN [id number] Naun Javed MD SPIRONOLACTONE 25 MG TABS -Garduno SPIRONOLACTONE [id number] Naun Javed MD PREDNISONE 10 MG TABS -Garduno PREDNISONE [id number] Naun Javed MD AMLODIPINE BESY-BENAZEPRIL HCL 5-20 MG CAPS -Garduno AMLODIPINE BESY-BENAZEPRIL HCL 81072084287 Naun Javed MD ROXICET 5-325 MG/5ML ORAL SOLUTION -Garduno OXYCODONE-ACETAMI NOPHEN 50428306280 Naun Javed MD BISOPROLOL FUMARATE TABS -Garduno BISOPROLOL FUMARATE TABS [id number] Naun Javed MD SYNTHROID TABS [facility] LEVOTHYROXINE SODIUM TABS 74718865295 Naun Javed MD CRESTOR 20 MG TABS [place] ROSUVASTATIN CALCIUM 80351346512 Naun Javed MD AMLODIPINE BESY-BENAZEPRIL HCL 5-20 MG CAPS Non[place] AMLODIPINE BESY-BENAZEPRIL HCL 10076604610 Maggie Rich MA ROXICET 5-325 MG/5ML ORAL SOLUTION [facility] OXYCODONE-ACETAMI NOPHEN [id number] Maggie Rich MA BISOPROLOL FUMARATE TABS [facility] BISOPROLOL FUMARATE TABS 26545695789 Maggie Rich MA SYNTHROID TABS [facility] LEVOTHYROXINE SODIUM TABS [id number] Maggie Rich MA CRESTOR [address] [facility] ROSUVASTATIN CALCIUM [id number] Maggie Rich MA Medications Administered No information [...]
--- OUTSIDE RECORDS SUMMARY | 2025-03-10 10:01 | XMS_ITS | Clinical Summary ---
Author Organization [facility] Address [address] [place] [address] Care Team Providers Care Rubber Goods Inspector Name Role Phone Mikie Bermudez MD Primary Care Provider [phone] Social History Tobacco Use Types Packs/Day Years [...] (2 of 2 - PCV) 08/10/2021 08/10/2020 [id number] Vaccine (4 - 2023- season) 2024 07/13/2022, [...] patient's age to complete this topic [place] [address] MEDICARE Care Teams Rubber Goods Inspector Relationship Specialty Start Date End Date Mikie Bermudez MD PCP - General 02/05/21
--- OUTSIDE RECORDS SUMMARY | 2025-03-10 10:01 | XMS_ITS | Clinical Summary ---
Author Organization [facility] Address [address] [facility] [place] [address] Phone Care Team Providers Care Electrical Appliance Servicer Name Role Phone Vilma Moreno MD, [place] Primary Care Provider + Allergies No known [...] TUNNEL RELEASE; Surgeon: Andrés Odom MD; Location: [facility]; Service: Hand CARPAL TUNNEL RELEASE 10/25/2012 Hand/Right RIGHT CARPAL TUNNEL RELEASE ; Surgeon: Andrés Odom MD; Location: [facility]; Service: Hand Medical History Medical History [...] topic Insurance PPO on file Care Teams Electrical Appliance Servicer Relationship Specialty Start Date End Date Josemanuel Esparza MD [address] [place] [id number] PCP - General Family Medicine 12/01/11
--- OUTSIDE RECORDS SUMMARY | 2025-03-10 10:01 | XMS_ITS | Clinical Summary ---
Author Organization [facility] Address [address] [place] [address] Care Team Providers Care Ski Instructor Name Role Phone Mikie Bermudez MD Primary Care Provider [phone] Andrés Mansfield MD Unavailable Allergies No known [...] specified HF chronicity, unspecified heart failure type ([facility]) 01/26/2023 Chronic systolic congestive heart failure ([facility]) 01/26/2023 Hypoxia 01/26/2023 Mucopurulent chronic bronchitis ([facility]) 2022 Class 3 severe obesity due [...] 09/25/2024 Influenza Vaccination (Season Ended) 2025 Insurance [facility] MEDICARE MEDICAID [place] Care Teams Ski Instructor Relationship Specialty [place] [address] [place] [address] PCP - General Family Medicine 01/25/23 Andrés Mans[place] MD [address] [facility] [address] [place] [address] Interventional Cardiology 01/26/23
== END 2025-03-10 23:59 | disposition home or self-care (01) ==
LOC: RT 09:55
PROVIDERS: PCP Family Medicine; Visit Provider Physician Assistant
DX: I49.1 Atrial premature depolarization (principal); I47.19 Other supraventricular tachycardia; I49.3 Ventricular premature depolarization; I47.29 Other ventricular tachycardia; I48.19 Other persistent atrial fibrillation; Z95.810 Presence of automatic (implantable) cardiac defibrillator
CPT/HCPCS: 93270

== ENCOUNTER 2025-03-17 10:23 | Outpatient (CLI) | payer MEDICARE, SELFPAY ==
[2025-03-17 19:24] LABS: Alanine Aminotransferase 32 U/L (12-78); Albumin/Globulin Ratio 1.4 (1.1-1.8); Alkaline Phosphatase 100 U/L (38-126); Anion Gap 9.7 mEq/L (5-15); Aspartate Amino Transferase 32 U/L (17-59); Bilirubin,Total 0.8 mg/dl (0.2-1.3); Blood Urea Nitrogen 20 mg/dl (9-20); Calcium 10.1 mg/dl (8.4-10.2); Carbon Dioxide 35 mmol/L (22.0-30.0); Chloride 96 mmol/L (98-107); Estimated Glomerular Filt Rate 50 ml/min (>60); GFR (African American) 61 ML/MIN (>60); Globulin 2.8 g/dL (1.3-3.2); Glucose 101 mg/dl (74-100); Potassium 3.7 mmoL/L (3.5-5.1); Sodium 137 mmol/L (136-145); Total Protein,Serum 6.8 g/dl (6.3-8.2)
[2025-03-17 19:54] LABS: Prostate Specific Ag Screen 0.7 ng/ml (0.0-4.0)
[2025-03-17 20:03] LABS: HIV Combo NEGATIVE (Negative)
[2025-03-17 20:08] LABS: Hepatitis C Ab Qual. W/ RFX NEGATIVE (Negative)
[2025-03-19 05:10] LABS: Hepatitis B Surface Antigen Negative (Negative)
--- OUTSIDE RECORDS SUMMARY | 2025-03-19 10:27 | XMS_ITS | Clinical Summary ---
Author Organization [facility] Address [address] [facility] [address] [place] [address] Phone Care Team Providers Care Electronics Worker Name Role Phone Eduarda Rdz Unavailable [phone] Conditions or Problems Problem Name Problem Code Onset Date Status Entry Date Provider Comment Standard Description Annotate FOLLOW-UP EXAMINATION, AFTER SURGERY NEC Z09 (ICD-10-CM ) 05/16 Active 05/16 Naun Javed MD Encounter for follow-up examination after completed treatment for conditions other than malignant neoplasm HERNIATED LUMBAR DISC 992962427 (SNOMED CT) 04/22 Active 04/22 Naun Javed MD Prolapsed lumbar intervertebral disc SPONDYLOSIS, 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 (ICD-10-CM ) 02/28 Active 02/28 Naun Javed MD Spondylosis without myelopathy or radiculopathy, cervical region Take Note of HEADACHE 68196524 (SNOMED CT) 02/28 Active 02/28 Maggie Rich MA Headache Take Note of JOINT STIFFNESS 58144295 (SNOMED CT) 02/28 Active 02/28 Maggie Rich MA Joint stiffness Take Note of MUSCLE CRAMPS 22501151 (SNOMED CT) 02/28 Active 02/28 Maggie Rich MA Cramp Take Note of BACK PAIN 548213127 (SNOMED CT) 02/28 Active 02/28 Maggie Rich MA Backache Take Note of COUGH 65546655 (SNOMED CT) 02/28 Active 02/28 Maggie Rich MA Cough Take Note of MALAISE AND FATIGUE 340025575 (SNOMED CT) 02/28 Active 02/28 Maggie Rich MA Malaise and fatigue Take Note of SWEATING 272305479 (SNOMED CT) 02/28 Active 02/28 Maggie Rich MA Sweating Take Note of THYROID DISEASE, HX OF 806693211 (SNOMED CT) 02/28 Active 02/28 Maggie Rich MA H/O: thyroid disorder Take Note of HYPERCHOLESTE ROLEMIA 62031427 (SNOMED CT) 02/28 Active 02/28 Maggie Rich MA Hypercholesterole hannah Medications Medication Instructions Start Date Stop Date Generic Name [facility] Provider ST ARZATE ASPIRIN 81 MG TBE -Garduno ASPIRIN [id number] Naun Javed MD CRESTOR 20 MG TABS -Garduno ROSUVASTATIN CALCIUM 76925942942 Naun Javed MD AMLODIPINE BESYLATE 10 MG TABS -Garduno AMLODIPINE BESYLATE 78448776326 Naun Javed MD BENAZEPRIL HCL 40 MG TABS - [place] HCL [id number] Naun Javed MD LEVOTHYROXINE SODIUM 125 MCG TABS - LEVOTHYROXINE SODIUM [id number] Naun Javed MD OXYCODONE-ACETAMI NOPHEN 10-325 MG TABS -Garduno OXYCODONE-ACETAMI NOPHEN 73643280619 Naun Javed MD SPIRONOLACTONE 25 MG TABS -Garduno SPIRONOLACTONE 64027717933 Naun Javed MD PREDNISONE 10 MG TABS -Garduno PREDNISONE [id number] Naun Javed MD AMLODIPINE BESY-BENAZEPR[place] HCL 5-20 MG CAPS -Garduno AMLODIPINE BESY-BE[place]ZEPR[place] HCL 79104512026 Naun Javed MD ROXICET 5-325 MG/5ML ORAL SOLUTION -Garduno OXYCODONE-ACETAMI NOPHEN 69102461810 Naun Javed MD BISOPROLOL FUMARATE TABS -Garduno BISOPROLOL FUMARATE TABS 50155361764 Naun Javed MD SYNTHROID TABS [facility] LEVOTHYROXINE SODIUM TABS 75839660062 Naun Javed MD CRESTOR 20 MG TABS [place] ROSUVASTATIN CALCIUM 25217539380 Naun Javed MD AMLODIPINE BESY-BENAZEPRIL HCL 5-20 MG CAPS [place] AMLODIPINE BESY-BENAZEPRIL HCL 31729426252 Maggie Rich MA ROXICET 5-325 MG/5ML ORAL SOLUTION [facility] OXYCODONE-ACETAMI NOPHEN [id number] Maggie Rich MA BISOPROLOL FUMARATE TABS [facility] BISOPROLOL FUMARATE TABS [id number] Maggie Rich MA SYNTHROID TABS [facility] LEVOTHYROXINE SODIUM TABS [id number] Maggie Rich MA CRESTOR 20 MG TABS [facility] ROSUVASTATIN CALCIUM [id number] Maggie Rich MA Medications Administered No information [...]
--- OUTSIDE RECORDS SUMMARY | 2025-03-19 10:27 | XMS_ITS | Clinical Summary ---
Author Organization [facility] Address [address] [place] [address] Care Team Providers Care Quality Assurance Coordinator Name Role Phone Mikie Bermudez MD Primary Care Provider [phone] Social History Tobacco Use Types Packs/Day Years [...] (2 of 2 - PCV) 08/10/2021 08/10/2020 [id number] Vaccine (4 - 2023- season) 2024 07/13/2022, [...] patient's age to complete this topic [place] [address] [address] MEDICARE Care Teams Quality Assurance Coordinator Relationship Specialty Start Date End Date Mikie Bermudez MD PCP - General 02/05/21
--- OUTSIDE RECORDS SUMMARY | 2025-03-19 10:27 | XMS_ITS | Clinical Summary ---
Author Organization [facility] Address [address] [place] [address] Phone Care Team Providers Care Assembly Line Supervisor Name Role Phone Vilma Moreno MD, [place] Primary Care Provider + Allergies No known [...] TUNNEL RELEASE; Surgeon: Andrés Odom MD; Location: [facility]; Service: Hand CARPAL TUNNEL RELEASE 10/25/2012 Hand/Right RIGHT CARPAL TUNNEL RELEASE ; Surgeon: Andrés Odom MD; Location: [facility]; Service: Hand Medical History Medical History Date [...] topic Insurance PPO on file Care Teams Assembly Line Supervisor Relationship Specialty Start Date End Date Josemanuel Esparza MD [address] [place] [phone] PCP - General Family Medicine 12/01/11
== END 2025-03-17 23:59 | disposition home or self-care (01) ==
LOC: LAB.DROPOF 03-19 10:24
PROVIDERS: PCP Family Medicine; Visit Provider Family Medicine
DX: I47.20 Ventricular tachycardia, unspecified (principal); J44.1 Chronic obstructive pulmonary disease with (acute) exacerbation; I50.9 Heart failure, unspecified; Z11.59 Encounter for screening for other viral diseases; Z12.5 Encounter for screening for malignant neoplasm of prostate
CPT/HCPCS: 80053; 86803; 87340; 87389; G0103

== ENCOUNTER 2025-03-19 10:30 | Outpatient (CLI) | payer MEDICARE, SELFPAY ==
--- NOTE | 2025-03-19 | CA_ITS ---
APPROVED REPORT Exam: Pharmacologic Technologist: Heather Frausto Ht: 5 ft 7 in Wt: 303 lbs BSA: 2.41 m2 HR: 61 bpm BP: 117/76 mmHg Stress Test Details Test: Lexiscan HR Resting HR: 61 bpm Max Heart Rate (APMHR): 151.861799 bpm Max HR Achieved: 88 bpm Target HR (85% APMHR): 128.516232 bpm % of APMHR: 58.28 Recovery HR: 74 bpm BP Resting BP: 117.0/76.0 mmHg Max BP: 117.0/76.0 mmHg Recovery BP: 112.0/69.0 mmHg ECG Resting ECG: Sinus rhythm, left bundle branch block/IVCD Stress ECG Conclusion Symptoms: Shortness of air. Arrhythmias/Ectopy: Lexiscan Electronically signed by : Destiny Péerz MD 03/19/2025 22:50:41
--- OUTSIDE RECORDS SUMMARY | 2025-03-19 10:44 | XMS_ITS | Clinical Summary ---
Author Organization [facility] Address [address] [place] [address] Care Team Providers Care Wheat Farmer Name Role Phone Mikie Bermudez MD Primary Care Provider [phone] Andrés [place] MD Unavailable Allergies No known [...] specified HF chronicity, unspecified heart failure type ([facility]) 01/26/2023 Chronic systolic congestive heart failure ([facility] H CC) 01/26/2023 Hypoxia 01/26/2023 Mucopurulent chronic bronchitis ([facility]) 2022 Class 3 severe obesity due t [...] 09/25/2024 Influenza Vaccination (Season Ended) 2025 Insurance [facility] MEDICARE MEDICAID [place] Care Teams Wheat Farmer Relationship Specialty [place] [address] [place] [address] PCP - General Family Medicine 01/25/23 Andrés [place] MD [address] [facility] [address] [place] [address] Interventional Cardiology 01/26/23
--- OUTSIDE RECORDS SUMMARY | 2025-03-19 10:44 | XMS_ITS | Clinical Summary ---
Author Organization [facility] Address [address] [facility] [address] [place] [address] Phone Care Team Providers Care Automotive Parts Salesperson Name Role Phone Eduarda Rdz Unavailable [phone] Conditions or Problems Problem Name Problem Code Onset Date Status Entry Date Provider Comment Standard Description Annotate FOLLOW-UP EXAMINATION, AFTER SURGERY NEC Z09 (ICD-10-CM ) 05/16 Active 05/16 Naun Javed MD Encounter for follow-up examination after completed treatment for conditions other than malignant neoplasm HERNIATED LUMBAR DISC 579041702 (SNOMED CT) 04/22 Active 04/22 Naun Javed MD Prolapsed lumbar intervertebral disc SPONDYLOSIS, 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 (ICD-10-CM ) 02/28 Active 02/28 Naun Javed MD Spondylosis without myelopathy or radiculopathy, cervical region Take Note of HEADACHE 70052893 (SNOMED CT) 02/28 Active 02/28 Maggie Rich MA Headache Take Note of JOINT STIFFNESS 15548314 (SNOMED CT) 02/28 Active 02/28 Maggie Rich MA Joint stiffness Take Note of MUSCLE CRAMPS 29241693 (SNOMED CT) 02/28 Active 02/28 Maggie Rich MA Cramp Take Note of BACK PAIN 216791349 (SNOMED CT) 02/28 Active 02/28 Maggie Rich MA Backache Take Note of COUGH 58362790 (SNOMED CT) 02/28 Active 02/28 Maggie Rich MA Cough Take Note of MALAISE AND FATIGUE 642046608 (SNOMED CT) 02/28 Active 02/28 Maggie Rich MA Malaise and fatigue Take Note of SWEATING 349350924 (SNOMED CT) 02/28 Active 02/28 Maggie Rich MA Sweating Take Note of THYROID DISEASE, HX OF 512489443 (SNOMED CT) 02/28 Active 02/28 Maggie Rich MA H/O: thyroid disorder Take Note of HYPERCHOLESTE ROLEMIA 39313718 (SNOMED CT) 02/28 Active 02/28 Maggie Rich MA Hypercholesterole hannah Medications Medication Instructions Start Date Stop Date Generic Name [facility] Provider ST ARZATE ASPIRIN 81 MG TBE -Garduno ASPIRIN 55042109728 Naun Javed MD CRESTOR 20 MG TABS -Garduno ROSUVASTATIN CALCIUM 05243837187 Naun Javed MD AMLODIPINE BESYLATE 10 MG TABS -Garduno AMLODIPINE BESYLATE 85279251385 Naun Javed MD BENAZEPRIL HCL 40 MG TABS - [place] HCL [id number] Naun Javed MD LEVOTHYROXINE SODIUM 125 MCG TABS - LEVOTHYROXINE SODIUM 48835713164 Naun Javed MD OXYCODONE-ACETAMI NOPHEN 10-325 MG TABS -Garduno OXYCODONE-ACETAMI NOPHEN [id number] Naun Javed MD SPIRONOLACTONE 25 MG TABS -Garduno SPIRONOLACTONE [id number] Naun Javed MD PREDNISONE 10 MG TABS -Garduno PREDNISONE [id number] Naun Javed MD AMLODIPINE BESY-BENAZEPRIL HCL 5-20 MG CAPS -Garduno AMLODIPINE BESY-BENAZEPRIL HCL [id number] Naun Javed MD ROXICET 5-325 MG/5ML ORAL SOLUTION -[place] OXYCODONE-ACETAMI NOPHEN [id number] Naun Javed MD BISOPROLOL FUMARATE TABS -Garduno BISOPROLOL FUMARATE TABS [id number] Naun Javed MD SYNTHROID TABS [facility] LEVOTHYROXINE SODIUM TABS 28016889032 Naun Javed MD CRESTOR 20 MG TABS [place] ROSUVASTATIN CALCIUM 44525838789 Naun Javed MD AMLODIPINE BESY-BENAZEPRIL HCL 5-20 MG CAPS [place] AMLODIPINE BESY-BENAZEPRIL HCL 75076096457 Maggie Rich MA ROXICET 5-325 MG/5ML ORAL SOLUTION [facility] OXYCODONE-ACETAMI NOPHEN 52509135961 Maggie Rich MA BISOPROLOL FUMARATE TABS [facility] BISOPROLOL FUMARATE TABS [id number] Maggie Rich MA SYNTHROID TABS [facility] LEVOTHYROXINE SODIUM TABS [id number] Maggie Rich MA CRESTOR 20 MG TABS [facility] ROSUVASTATIN CALCIUM [id number] Maggie Rich MA Medications Administered No information [...]
--- NOTE | 2025-03-19 11:30 | NM_ITS ---
APPROVED REPORT Exam: Nuclear Stress Test Indication: SOB, HTN, High cholesterol, Family history Patient Location: Outpatient Stress Tech: Heather Frausto NM Tech:Chantell Saucedo, ARRT, RT (R)(N) Ht: 5 ft 7 in Wt: 300 lbs HR: 60 bpm BP: 117/76 mmHg BSA: 2.40 m2 TID: 1.16 BMI: 46.9 History: SOB, HTN, High cholesterol, Family history Procedure: Patient received 0.4 mg of intravenous Lexiscan, resting heart rate 60 bpm, resting blood pressure 117/76 mmHg, with Lexiscan maximum heart rate achieved was 91 bpm which is % of the maximum predicted heart rate and blood pressure was 117/66 mmHg. With Lexiscan, patient denied any complaint of chest pain. Cardiac Stress and Resting SPECT Images: Cardiac Stress and Resting SPECT images were obtained using technetium 99m Myoview 30.0 mCi stress and 10.95 mCi at rest. The patient was unable to lie on his abdomen. Therefore, prone stress imaging could not be performed. This may affect the diagnostic interpretation of the study findings. Resting and stress imaging in supine positions demonstrate a large sized, moderate, partially reversible perfusion defect in the inferior LV wall from the base and extending distally towards the inferoapical region. Gated imaging demonstrates mild reduction in global LV systolic function. There is mild hypokinesis of the basal inferior LV wall. LVEF is calculated at 45%. Conclusion: Large sized, moderate, partially reversible perfusion defect in the inferior LV wall from the base and extending distally towards the inferoapical region. Findings are suggestive of partial reversible ischemia. Gated imaging demonstrates mild reduction in global LV systolic function. There is mild hypokinesis of the basal inferior LV wall. LVEF is calculated at 45%. Electronically signed by : Destiny Pérez MD 03/19/2025 22:48:21
[2025-03-19] MEDS: SODIUM CHLORIDE 0.9% 10ML SYR (RAD ONLY) 10 ML IV ×2 (13:23)
[2025-03-19] MEDS: ISOTOPE MYOVIEW (PER STUDY) 1 DOSE IV (13:23)
[2025-03-19] MEDS: REGADENOSON 0.4MG/5ML SYRINGE 0.4 MG IV (13:23)
== END 2025-03-19 23:59 | disposition home or self-care (01) ==
LOC: RAD 10:31
PROVIDERS: PCP Family Medicine; Visit Provider Physician Assistant
DX: I44.7 Left bundle-branch block, unspecified (principal); I45.89 Other specified conduction disorders; R94.39 Abnormal result of other cardiovascular function study; I95.9 Hypotension, unspecified; I10 Essential (primary) hypertension; R06.02 Shortness of breath; R06.09 Other forms of dyspnea
CPT/HCPCS: 78452; 93017; 93018; A9502; J2785

== ENCOUNTER 2025-04-01 09:17 | Outpatient (CLI) | payer MEDICARE, SELFPAY ==
--- OUTSIDE RECORDS SUMMARY | 2025-04-01 09:20 | XMS_ITS | Clinical Summary ---
Author Organization The Address [address] [place] [address] Care Team Providers Care Welt Rander Name Role Phone Mikie Bermudez MD Primary Care Provider [phone] Andrés Mansfield MD Unavailable Allergies No known [...] specified HF chronicity, unspecified heart failure type ([facility]) 01/26/2023 Chronic systolic congestive heart failure ([facility]) 01/26/2023 Hypoxia 01/26/2023 Mucopurulent chronic bronchitis ([facility]) 2022 Class 3 severe obesity due [...] Planning 09/25/2024 Depression Screening 09/25/2024 Influenza Vaccination (#1) 2025 Insurance [facility] MEDICARE MEDICAID [place] Care Teams Welt Rander Relationship Specialty [place] [address] [place] [address] PCP - General Family Medicine 01/25/23 Andrés Mansfield MD [address] [facility] [address] [place] [address] Interventional Cardiology 01/26/23
--- OUTSIDE RECORDS SUMMARY | 2025-04-01 09:20 | XMS_ITS | Clinical Summary ---
Author Organization [facility] Address [address] [facility] [place] [address] Phone Care Team Providers Care Electrical Engineering Manager Name Role Phone Vilma Moreno MD, [place] Primary Care Provider + Allergies No known [...] TUNNEL RELEASE; Surgeon: Andrés Odom MD; Location: [facility]; Service: Hand CARPAL TUNNEL RELEASE 10/25/2012 Hand/Right RIGHT CARPAL TUNNEL RELEASE ; Surgeon: Andrés Odom MD; Location: [facility]; Service: Hand Medical History Medical History [...] - 2023-2 5 season) 2024 Influenza Vaccine (#1) 2025 Hepatitis B Vaccine Aged Out No longe r eligible based on patient's age to complete this topic Meningococcal B Vaccine Aged Out No l onger eligible based on patient's age to complete this topic Insurance PPO on file Care Teams Electrical Engineering Manager Relationship Specialty Start Date End Date Josemanuel Esparza MD [address] [place] [phone] PCP - General Family Medicine 12/01/11
--- OUTSIDE RECORDS SUMMARY | 2025-04-01 09:20 | XMS_ITS | Clinical Summary ---
Author Organization [facility] Address [address] [facility] [address] [place] [address] Phone Care Team Providers Care Pin Ball Machine Mechanic Name Role Phone Eduarda Rdz Unavailable [phone] Conditions or Problems Problem Name Problem Code Onset Date Status Entry Date Provider Comment Standard Description Annotate FOLLOW-UP EXAMINATION, AFTER SURGERY NEC Z09 (ICD-10-CM ) 05/16 Active 05/16 Naun Javed MD Encounter for follow-up examination after completed treatment for conditions other than malignant neoplasm HERNIATED LUMBAR DISC 374153208 (SNOMED CT) 04/22 Active 04/22 Naun Javed MD Prolapsed lumbar intervertebral disc SPONDYLOSIS, 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 (ICD-10-CM ) 02/28 Active 02/28 Naun Javed MD Spondylosis without myelopathy or radiculopathy, cervical region Take Note of HEADACHE 25612789 (SNOMED CT) 02/28 Active 02/28 Maggie Rich MA Headache Take Note of JOINT STIFFNESS 58110444 (SNOMED CT) 02/28 Active 02/28 Maggie Rcih MA Joint stiffness Take Note of MUSCLE CRAMPS 47643930 (SNOMED CT) 02/28 Active 02/28 Maggie Rich MA Cramp Take Note of BACK PAIN 579200271 (SNOMED CT) 02/28 Active 02/28 Maggie Rich MA Backache Take Note of COUGH 96920410 (SNOMED CT) 02/28 Active 02/28 Maggie Rich MA Cough Take Note of MALAISE AND FATIGUE 811941082 (SNOMED CT) 02/28 Active 02/28 Maggie Rich MA Malaise and fatigue Take Note of SWEATING 591482297 (SNOMED CT) 02/28 Active 02/28 Maggie Rich MA Sweating Take Note of THYROID DISEASE, HX OF 380153441 (SNOMED CT) 02/28 Active 02/28 Maggie Rich MA H/O: thyroid disorder Take Note of HYPERCHOLESTE ROLEMIA 55803733 (SNOMED CT) 02/28 Active 02/28 Maggie Rich MA Hypercholesterole hannah Medications Medication Instructions Start Date Stop Date Generic Name [facility] Provider ST ARZATE ASPIRIN 81 MG TBE -Garduno ASPIRIN [id number] Naun Javed MD CRESTOR 20 MG TABS -Garduno ROSUVASTATIN CALCIUM 66230925285 Naun Javed MD AMLODIPINE BESYLATE 10 MG TABS -Garduno AMLODIPINE BESYLATE 80330040167 Naun Javed MD BENAZEPRIL HCL 40 MG TABS - [place] HCL [id number] Naun Javed MD LEVOTHYROXINE SODIUM 125 MCG TABS - LEVOTHYROXINE SODIUM [id number] Naun Javed MD OXYCODONE-ACETAMI NOPHEN 10-325 MG TABS -[place] OXYCODONE-ACETAMI NOPHEN [id number] Naun Javed MD SPIRONOLACTONE 25 MG TABS -[place] SPIRONOLACTONE [id number] Naun Javed MD PREDNISONE 10 MG TABS -[place] PREDNISONE [id number] Naun Javed MD AMLODIPINE BESY-BENAZEPRIL HCL 5-20 MG CAPS -Garduno AMLODIPINE BESY-BENAZEPRIL HCL 66044454611 Naun Javed MD ROXICET 5-325 MG/5ML ORAL SOLUTION -[place] OXYCODONE-ACETAMI NOPHEN [id number] Naun Javed MD BISOPROLOL FUMARATE TABS -[place] BISOPROLOL FUMARATE TABS [id number] Naun Javed MD SYNTHROID TABS [facility] LEVOTHYROXINE SODIUM TABS [id number] Naun Javed MD CRESTOR 20 MG TABS [place] ROSUVASTATIN CALCIUM 34356623495 Naun Javed MD AMLODIPINE BESY-BENAZEPRIL HCL 5-20 MG CAPS [place] AMLODIPINE BESY-BENAZEPRIL HCL 45892122771 Maggie Rich MA ROXICET 5-325 MG/5ML ORAL SOLUTION [facility] OXYCODONE-ACETAMI NOPHEN [id number] Maggie Rich MA BISOPROLOL FUMARATE TABS [facility] BISOPROLOL FUMARATE TABS [id number] Maggie Rich MA SYNTHROID TABS [facility] LEVOTHYROXINE SODIUM TABS [id number] Maggie Rich MA CRESTOR 20 MG TABS [facility] ROSUVASTATIN CALCIUM [id number] Maggie Rich MA Medications Administered No information [...]
--- OUTSIDE RECORDS SUMMARY | 2025-04-01 09:20 | XMS_ITS | Clinical Summary ---
Author Organization [facility] Address [address] [place] [address] Care Team Providers Care Tiller Worker Name Role Phone Mikie Bermudez MD Primary Care Provider [phone] Social History Tobacco Use Types Packs/Day Years [...] (2 of 2 - PCV) 08/10/2021 08/10/2020 [id number] Vaccine (4 - season) 2024 07/13/2022, 08/04/2021, 11/30/2020 UKY-Influenza Vaccine (#1) 05/26/202508/10, 06/26/2017, 06/25/2012 HPV Vaccines Aged Out No [...] patient's age to complete this topic Insurance [place] [address] MEDICARE Care Teams Tiller Worker Relationship Specialty Start Date End Date Mikie Bermudez MD PCP - General 02/05/21
--- OUTSIDE RECORDS SUMMARY | 2025-04-01 09:20 | XMS_ITS ---
Laboratory report Created on: March 21, 2025 OSMAN HITCHCOCK : 1955 Sex: Male Author Organization Unknown PROBLEMS Problems List Code Description RESULTS Laboratory Orders Date Order Code Test 2025-03-17 [id number] [facility] SCREEN Laboratory Results Date LOINC Test Value Unit Reference Range Interpre tation 2025-03-17 5196-1 [facility]BSAG SCREEN N NEGATIVE
[2025-04-01] MEDS: ALBUTEROL 0.083% 2.5 MG/3 ML NEB IH (09:59)
== END 2025-04-01 23:59 | disposition home or self-care (01) ==
LOC: RT 09:18
PROVIDERS: PCP Family Medicine; Visit Provider Internal Medicine Pulmonary Disease
DX: J44.9 Chronic obstructive pulmonary disease, unspecified (principal); R94.2 Abnormal results of pulmonary function studies
CPT/HCPCS: 94010; 94618

== ENCOUNTER 2025-04-08 08:28 | Day surgery (SDC) | payer MEDICARE, SELFPAY ==
[2025-04-08] VITALS (12 sets, daily range): BP systolic 91–132; BP diastolic 66–87; PULSE 62–91; RESP 16–20; O2SAT 90–99; BMI 47.2
--- NOTE | 2025-04-08 07:12 | IR_ITS ---
APPROVED REPORT Patient Location: Outpatient PROCEDURES Right heart catheterization Left heart catheterization Left ventriculogram Selective coronary angiogram INDICATION Pulmonary hypertension, Abnormal Myoview, Angina pectoris Informed consent was obtained prior to the procedure. COMPLICATIONS NONE Estimated Blood Loss: LESS THAN 10 ML TECHNIQUE One percent lidocaine was used to anesthetize the right anterior aspect of the right wrist. The right radial artery was accessed via the Seldinger technique and a 6 Finnish hydrophilic sheath was placed in the right radial artery. Following this one percent lidocaine was used to anesthetize the right anterior aspect of the right neck. The right internal jugular vein was accessed via the Seldinger technique and a 7 Finnish sheath was placed in the right internal jugular vein. Following this an arterial cocktail was administered using 5000U heparin, 2.5 mg verapamil, 1mg Lidocaine and 800mcg nitroglycerin into the right radial sheath. A JL3 catheter was used to perform left heart catheterization left ventriculogram and selective coronary angiography while a [place]-Roverto catheter was used to perform right heart catheterization. Saturations were obtained in the pulmonary artery and right atrium. At the end of the procedure the arterial sheath was removed good hemostasis was achieved using Traclet band. Patient was transferred to the postop holding area in stable condition for venous sheath removal. ANGIOGRAPHIC RESULTS The left main artery Normal The left anterior descending artery Normal The circumflex artery Dominant normal The right coronary artery Normal The GALVEZ ventriculogram reveals Normal 65% The left ventricular end-diastolic pressure 10 mmHg Right atrial pressure 6 mmHg Right ventricular pressure 40/6 mmHg Pulmonary artery pressure 35/15 mmHg Pulmonary occlusion pressure 10 mmHg Right atrial saturation 76% Pulmonary artery saturation 76% Aortic saturation 94% Hemoglobin 14.1 Cardiac output 8.6 Cardiac index 3.6 Patient had a redundant superior vena cava IMPRESSION Normal coronary arteries Normal ejection fraction Normal LVEDP Mild pulmonary hypertension 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 Medical management Electronically signed by : Alejandro Jenkins MD 04/08/2025 12:24:11
[2025-04-08 08:57] LABS: Hematocrit 42.8 % (42.0-52.0); Hemoglobin 14.1 g/dL (14.1-18.0); Immature Granulocytes % 0.6 %; Mean Corpuscular HGB Conc 32.9 g/dL (31.8-35.4); Mean Corpuscular Hemoglobin 30.5 pg (27.0-31.2); Mean Corpuscular Volume 92.6 fl (80-94); Nucleated Red Blood Cells % 0 %; Platelet Count 264 K/mm3 (142-424); Red Blood Count 4.62 M/mm3 (4.60-6.20); Red Cell Distribution Width-SD 45.0 fL; White Blood Count 14.7 K/mm3 (4.8-10.8)
[2025-04-08 09:07] LABS: Anion Gap 14.4 mEq/L (5-15); Blood Urea Nitrogen 25 mg/dl (9-20); Calcium 10.2 mg/dl (8.4-10.2); Carbon Dioxide 32 mmol/L (22.0-30.0); Chloride 95 mmol/L (98-107); Creatinine Clearance Estimated 50 mL/min (50-200); Creatinine,Serum 1.30 mg/dl (0.66-1.25); Estimated Glomerular Filt Rate 55 ml/min (>60); GFR (African American) 66 ML/MIN (>60); Glucose 130 mg/dl (74-100); Potassium 3.4 mmoL/L (3.5-5.1); Sodium 138 mmol/L (136-145)
[2025-04-08] MEDS: HEPARIN 1,000 UNITS/500ML NS (CATH LAB) 3000 UNIT IV (11:04)
[2025-04-08] MEDS: NITROGLYCERIN 800MCG/8ML SYR (CATH LAB) 800 MCG IA (11:05)
[2025-04-08] MEDS: LIDOCAINE 1% 10ML MDV 10 ML IJ (11:05)
[2025-04-08] MEDS: 0.9 % SODIUM CHLORIDE 500 ML 25 ML IV (11:05)
[2025-04-08] MEDS: VERAPAMIL 2.5MG/ML 2ML VIAL 2.5 MG IV (11:05)
[2025-04-08] MEDS: HEPARIN 1,000 UNITS/ML 10ML VIAL (CATH LAB) 5000 UNIT IV (11:05)
[2025-04-08] MEDS: FENTANYL 100MCG/2ML VIAL 50 MCG IV (11:37)
[2025-04-08] MEDS: MIDAZOLAM HCL 1MG/ML 5ML VIAL 1 MG IV ×2 (11:38→12:04)
[2025-04-08] MEDS: IOPAMIDOL-370 (76%);100ML BOTTLE 50 ML IV (15:21)
[2025-04-08 15:22] LABS: CATHL Arterial O2 SAT 76 % (90-100); CATHL Venous O2 SAT 76 % (75-80)
== END 2025-04-08 15:10 | disposition home or self-care (01) ==
PROVIDERS: PCP Family Medicine; Visit Provider Internal Medicine
PROC: 4A023N7 Measurement of Cardiac Sampling and Pressure, Left Heart, Percutaneous Approach (ICD-10-PCS; CPT 93452; principal; 2025-04-08 10:15)
PROC: 4A023N6 Measurement of Cardiac Sampling and Pressure, Right Heart, Percutaneous Approach (ICD-10-PCS; CPT 93451; 2025-04-08 10:15)
DX: I20.89 Other forms of angina pectoris (principal); I27.20 Pulmonary hypertension, unspecified; R93.1 Abnormal findings on diagnostic imaging of heart and coronary circulation; I48.0 Paroxysmal atrial fibrillation; I11.0 Hypertensive heart disease with heart failure; I50.32 Chronic diastolic (congestive) heart failure; R06.09 Other forms of dyspnea; E78.2 Mixed hyperlipidemia; J44.9 Chronic obstructive pulmonary disease, unspecified; I47.20 Ventricular tachycardia, unspecified; E66.01 Morbid (severe) obesity due to excess calories; Z68.41 Body mass index [BMI] 40.0-44.9, adult; Z87.891 Personal history of nicotine dependence; Z82.49 Family history of ischemic heart disease and other diseases of the circulatory system; Z79.84 Long term (current) use of oral hypoglycemic drugs; Z79.890 Hormone replacement therapy; Z79.82 Long term (current) use of aspirin; Z79.01 Long term (current) use of anticoagulants; Z79.899 Other long term (current) drug therapy
CPT/HCPCS: 93460; 80048; 82810; 85025; 99152; C1725; C1760; C1769; C1894; J1200; J1644; J2003; J3010; J7040; Q9967

== ENCOUNTER 2025-06-25 10:52 | Outpatient (CLI) | payer MEDICARE, SELFPAY ==
[2025-06-25 17:15] LABS: Alanine Aminotransferase 21 U/L (12-78); Albumin Level 3.5 g/dl (3.5-5.0); Albumin/Globulin Ratio 1.5 (1.1-1.8); Alkaline Phosphatase 141 U/L (38-126); Anion Gap 12.9 mEq/L (5-15); Aspartate Amino Transferase 22 U/L (17-59); Bilirubin,Total 0.5 mg/dl (0.2-1.3); Blood Urea Nitrogen 18 mg/dl (9-20); Calcium 9.6 mg/dl (8.4-10.2); Carbon Dioxide 29 mmol/L (22.0-30.0); Chloride 103 mmol/L (98-107); Creatinine,Serum 1.00 mg/dl (0.66-1.25); Estimated Glomerular Filt Rate 74 ml/min (>60); GFR (African American) 90 ML/MIN (>60); Globulin 2.3 g/dL (1.3-3.2); Glucose 78 mg/dl (74-100); Potassium 4.9 mmoL/L (3.5-5.1); Sodium 140 mmol/L (136-145); Total Protein,Serum 5.8 g/dl (6.3-8.2); Uric Acid 3.2 mg/dl (3.5-8.5)
[2025-06-25 17:20] LABS: C-Reactive Protein 56.7 mg/L (0-4)
--- OUTSIDE RECORDS SUMMARY | 2025-06-26 10:29 | XMS_ITS | Clinical Summary ---
Author Organization [facility] (Formerly [facility]) Address [address] [facility] [address] [place] [address] Phone Care Team Providers Care Outreach Associate Name Role Phone Eduarda Rdz Unavailable [phone] Conditions or Problems Problem Name Problem Code Onset Date Status Entry Date Provider Comment Standard Description Annotate FOLLOW-UP EXAMINATION, AFTER SURGERY NEC Z09 (ICD-10-CM ) 05/16 Active 05/16 Naun Javed MD Encounter for follow-up examination after completed treatment for conditions other than malignant neoplasm HERNIATED LUMBAR DISC 600138873 (SNOMED CT) 04/22 Active 04/22 Naun Javed MD Prolapsed lumbar intervertebral disc SPONDYLOSIS, 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 (ICD-10-CM ) 02/28 Active 02/28 Naun Javed MD Spondylosis without myelopathy or radiculopathy, cervical region Take Note of HEADACHE 87785625 (SNOMED CT) 02/28 Active 02/28 Maggie Rich MA Headache Take Note of JOINT STIFFNESS 24349615 (SNOMED CT) 02/28 Active 02/28 Maggie Rich MA Joint stiffness Take Note of MUSCLE CRAMPS 12101785 (SNOMED CT) 02/28 Active 02/28 Maggie Rich MA Cramp Take Note of BACK PAIN 947638091 (SNOMED CT) 02/28 Active 02/28 Maggie Rich MA Backache Take Note of COUGH 47178701 (SNOMED CT) 02/28 Active 02/28 Maggie Rich MA Cough Take Note of MALAISE AND FATIGUE 129109188 (SNOMED CT) 02/28 Active 02/28 Maggie Rich MA Malaise and fatigue Take Note of SWEATING 608777838 (SNOMED CT) 02/28 Active 02/28 Maggie Rich MA Sweating Take Note of THYROID DISEASE, HX OF 695405535 (SNOMED CT) 02/28 Active 02/28 Maggie Rich MA H/O: thyroid disorder Take Note of HYPERCHOLESTE ROLEMIA 45537496 (SNOMED CT) 02/28 Active 02/28 Maggie Rich MA Hypercholesterole hannah Medications Medication Instructions Start Date Stop Date Generic Name [facility] Provider ST ARZATE ASPIRIN 81 MG TBE -Garduno ASPIRIN [id number] Naun Javed MD CRESTOR 20 MG TABS -Garduno ROSUVASTATIN CALCIUM [id number] Naun Javed MD AMLODIPINE BESYLATE 10 MG TABS -Garduno AMLODIPINE BESYLATE 86285842885 Naun Javed MD BENAZEPRIL HCL 40 MG TABS - BENAZEPRIL HCL [id number] Naun Javed MD LEVOTHYROXINE SODIUM 125 MCG TABS - LEVOTHYROXINE SODIUM 77885903305 Naun Javed MD OXYCODONE-ACETAMI NOPHEN 10-325 MG TABS -Garduno OXYCODONE-ACETAMI NOPHEN 63469864614 Naun Javed MD SPIRONOLACTONE 25 MG TABS -Garduno SPIRONOLACTONE 19129078515 Naun Javed MD PREDNISONE 10 MG TABS -Garduno PREDNISONE 70916678807 Naun Javed MD AMLODIPINE BESY-BENAZEPRIL HCL 5-20 MG CAPS -Garduno AMLODIPINE BESY-BENAZEPRIL HCL 63312319907 Naun Javed MD ROXICET 5-325 MG/5ML ORAL SOLUTION -Garduno OXYCODONE-ACETAMI NOPHEN 91610836916 Naun Javed MD BISOPROLOL FUMARATE TABS -Garduno BISOPROLOL FUMARATE TABS 18363788750 Naun Javed MD SYNTHROID TABS [facility] LEVOTHYROXINE SODIUM TABS 84343411423 Naun Javed MD CRESTOR 20 MG TABS [facility] ROSUVASTATIN CALCIUM 61239310611 Naun Javed MD AMLODIPINE BESY-BENAZEPRIL HCL 5-20 MG CAPS Non[facility] AMLODIPINE BESY-BENAZEPRIL HCL 91599576628 Maggie Rich MA ROXICET 5-325 MG/5ML ORAL SOLUTION [facility] OXYCODONE-ACETAMI NOPHEN [id number] Maggie Rich MA BISOPROLOL FUMARATE TABS [facility] BISOPROLOL FUMARATE TABS [id number] Maggie Rich MA SYNTHROID TABS [facility] LEVOTHYROXINE SODIUM TABS [id number] Maggie Rich MA CRESTOR 20 MG TABS [facility] ROSUVASTATIN CALCIUM [id number] Maggie Rich MA Medications Administered No information [...]
--- OUTSIDE RECORDS SUMMARY | 2025-06-26 10:30 | XMS_ITS | Clinical Summary ---
Author Organization [facility] Address [address] [place] [address] Care Team Providers Care Physical Security Manager Name Role Phone Mikie Bermudez MD Primary Care Provider [phone] Andrés Mansfield MD Unavailable Allergies No known [...] specified HF chronicity, unspecified heart failure type 01/26/2023 Chronic systolic congestive heart failure 2022 Hypoxia 01/26/2023 Mucopurulent chronic bronchitis 01/26/2023 Class 3 severe obesity due t o [...] 1-dose series) 12/25 Fall Risk Assessment 01/17/2021 Advance Care Planning 09/25/2024 Depression Screening 09/25/2024 COVID-19 Vaccine ( - season) 2025 Influenza Vaccination (#1) 2025 Insurance [facility] MEDICARE MEDICAID [place] Care Teams Physical Security Manager Relationship Specialty [place] [address] [place] [address] PCP - General Family Medicine 01/25/23 Andrés Mansfield MD [address] [facility] [address] [place] [address] Interventional Cardiology 01/26/23
--- OUTSIDE RECORDS SUMMARY | 2025-06-26 10:30 | XMS_ITS | Clinical Summary ---
Author Organization [facility] Address [address] [place] [address] Care Team Providers Care Pricing Consultant Name Role Phone Mikie Bermudez MD Primary Care Provider [phone] Social History Tobacco Use Types Packs/Day Years [...] Screening 1955 UKY-Medicare Annual Wellness (AWV) 1955 UKY-Infant/Child/Adol SDOH Screenings 1955 UKY-Obesity Intervention 01/17/1962 UKY- [...] (2 of 2 - PCV) 08/10/2021 08/10/2020 [id number] Vaccine (4 - season) 2025 07/13/2022, 08/04/2021, 11/30/2020 UKY-Influenza Vaccine (#1) 05/26/202508/10, [...] patient's age to complete this topic Insurance [place] [address] MEDICARE Care Teams Pricing Consultant Relationship Specialty Start Date End Date Mikie Bermudez MD PCP - General 02/05/21
--- OUTSIDE RECORDS SUMMARY | 2025-06-26 10:30 | XMS_ITS | Clinical Summary ---
Author Organization [facility] Address [address] [facility] [place] [address] Phone Care Team Providers Care Injection Molding Machine Tender Name Role Phone Vilma Moreno MD, [place] Primary Care Provider + Allergies No known [...] TUNNEL RELEASE; Surgeon: Andrés Odom MD; Location: [facility]; Service: Hand CARPAL TUNNEL RELEASE 10/25/2012 Hand/Right RIGHT CARPAL TUNNEL RELEASE ; Surgeon: Andrés Odom MD; Location: [facility]; Service: Hand Medical History Medical History [...] COVID-19 Vaccine ( - 2023-2 5 season) 2025 Influenza Vaccine (#1) 2025 Hepatitis B Vaccine Aged Out No longe r eligible based on patient's age to complete this topic Meningococcal B Vaccine Aged Out No l onger eligible based on patient's age to complete this topic Insurance PPO on file Care Teams Injection Molding Machine Tender Relationship Specialty Start Date End Date Josemanuel Esparza MD [address] [place] [phone] PCP - General Family Medicine 12/01/11
[2025-06-27 11:36] LABS: RA Latex Turbid. <10.0 IU/mL (<14.0)
== END 2025-06-25 23:59 | disposition home or self-care (01) ==
LOC: LAB.DROPOF 06-26 10:27
PROVIDERS: PCP Family Medicine; Visit Provider Family Medicine
DX: M25.571 Pain in right ankle and joints of right foot (principal); M25.572 Pain in left ankle and joints of left foot; I27.20 Pulmonary hypertension, unspecified; I10 Essential (primary) hypertension; M79.671 Pain in right foot; M79.672 Pain in left foot; Q89.9 Congenital malformation, unspecified
CPT/HCPCS: 80053; 84550; 85651; 86038; 86140; 86225; 86235; 86431

== ENCOUNTER 2025-06-27 09:04 | Outpatient (CLI) | payer MEDICARE, SELFPAY ==
--- NOTE | 2025-06-27 09:06 | XR_ITS ---
FINAL REPORT CLINICAL HISTORY: congenital deformity; ankle pain COMPARISON: None FINDINGS: RIGHT ANKLE 3 views of the right ankle were obtained. There is no acute fracture or dislocation. There is moderate soft tissue edema, particularly laterally. The hindfoot is collapsed. The talus is not well seen. IMPRESSION: Soft tissue edema without acute bony abnormality. Reviewed, Interpreted and Dictated by Micha Lazo MD Transcribed by Altagracia Dunbar Authenticated and . [facility]
--- NOTE | 2025-06-27 09:06 | XR_ITS ---
FINAL REPORT CLINICAL HISTORY: nate foot and ankle pain COMPARISON: None FINDINGS: LEFT ANKLE Three views demonstrate no acute fracture or dislocation. The visualized joint spaces are normally aligned. Ankle mortise is intact. Moderate soft tissue edema about the ankle. IMPRESSION: Soft tissue edema without acute bony abnormality. Reviewed, Interpreted and Dictated by Micha Lazo MD Transcribed by Altagracia Dunbar Authenticated and [facility]
--- NOTE | 2025-06-27 09:06 | XR_ITS ---
FINAL REPORT CLINICAL HISTORY: congenital deformity; nate ankle pain COMPARISON: None FINDINGS: RIGHT FOOT 3 views of the right foot were obtained. There is no acute fracture or dislocation. Hindfoot collapse is noted. There is flattening of the calcaneus. Moderate hypertrophic changes are seen at the articulation between the distal tibia and superior calcaneus. The talus is not clearly visualized. There are only 4 digital rays present. 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 Congenital deformities as noted above. Reviewed, Interpreted and Dictated by Micha Lazo MD Transcribed by Altagracia Dunbar Authenticated and [facility]
--- NOTE | 2025-06-27 09:06 | XR_ITS ---
FINAL REPORT CLINICAL HISTORY: nate foot and ankle pain COMPARISON: None FINDINGS: LEFT FOOT Three views of the left foot demonstrate no acute fracture or dislocation. The visualized joint spaces are normally aligned. There is a small plantar spur. The soft tissues are unremarkable. IMPRESSION: No acute bony abnormality. Reviewed, Interpreted and Dictated by Micha Lazo MD Transcribed by Altagracia Dunbar Authenticated and [facility]
--- OUTSIDE RECORDS SUMMARY | 2025-06-27 09:07 | XMS_ITS | Clinical Summary ---
Author Organization [facility] Address [address] [place] [address] Care Team Providers Care Transitional Care Nurse Name Role Phone Mikie Bermudez MD Primary Care Provider [phone] Andrés Mansfield MD Unavailable Allergies No known [...] season) 2025 Influenza Vaccination (#1) [address] [facility] MEDICARE MEDICAID [place] Care Teams Transitional Care Nurse Relationship Specialty [place] [address] [place] [address] PCP - General Family Medicine 01/25/23 Andrés Mansfield MD [address] [facility] [address] [place] [address] Interventional Cardiology 01/26/23
--- OUTSIDE RECORDS SUMMARY | 2025-06-27 09:07 | XMS_ITS | Clinical Summary ---
Author Organization [facility] Address [facility] [place] [address] Phone Care Team Providers Care Nutrition Club Ambassador Name Role Phone Vilma Moreno MD, [place] Primary Care Provider + Allergies No known [...] TUNNEL RELEASE; Surgeon: Andrés Odom MD; Location: [facility]; Service: Hand CARPAL TUNNEL RELEASE 10/25/2012 Hand/Right RIGHT CARPAL TUNNEL RELEASE ; Surgeon: Andrés Odom MD; Location: [facility]; Service: Hand Medical History Medical History [...] topic Insurance PPO on file Care Teams Nutrition Club Ambassador Relationship Specialty Start Date End Date Josemanuel Esparza MD [address] [place] [phone] PCP - General Family Medicine 12/01/11
--- OUTSIDE RECORDS SUMMARY | 2025-06-27 09:07 | XMS_ITS | Clinical Summary ---
Author Organization [facility] Address [address] [facility] [address] [place] [address] Phone Care Team Providers Care Rail Loader Name Role Phone Eduarda Rdz Unavailable [phone] Conditions or Problems Problem Name Problem Code Onset Date Status Entry Date Provider Comment Standard Description Annotate FOLLOW-UP EXAMINATION, AFTER SURGERY NEC Z09 (ICD-10-CM ) 05/16 Active 05/16 Naun Javed MD Encounter for follow-up examination after completed treatment for conditions other than malignant neoplasm HERNIATED LUMBAR DISC 266189369 (SNOMED CT) 04/22 Active 04/22 aNun Javed MD Prolapsed lumbar intervertebral disc SPONDYLOSIS, 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 (ICD-10-CM ) 02/28 Active 02/28 Naun Javed MD Spondylosis without myelopathy or radiculopathy, cervical region Take Note of HEADACHE 51067580 (SNOMED CT) 02/28 Active 02/28 Maggie iRch MA Headache Take Note of JOINT STIFFNESS 21124799 (SNOMED CT) 02/28 Active 02/28 Maggie Rich MA Joint stiffness Take Note of MUSCLE CRAMPS 46831371 (SNOMED CT) 02/28 Active 02/28 Maggie Rich MA Cramp Take Note of BACK PAIN 545268162 (SNOMED CT) 02/28 Active 02/28 Maggie Rich MA Backache Take Note of COUGH 80273395 (SNOMED CT) 02/28 Active 02/28 Maggie Rich MA Cough Take Note of MALAISE AND FATIGUE 589100029 (SNOMED CT) 02/28 Active 02/28 Maggie Rich MA Malaise and fatigue Take Note of SWEATING 025094745 (SNOMED CT) 02/28 Active 02/28 Maggie Rich MA Sweating Take Note of THYROID DISEASE, HX OF 644205466 (SNOMED CT) 02/28 Active 02/28 Maggie Rich MA H/O: thyroid disorder Take Note of HYPERCHOLESTE ROLEMIA 88767308 (SNOMED CT) 02/28 Active 02/28 Maggie Rich MA Hypercholesterole hannah Medications Medication Instructions Start Date Stop Date Generic Name [facility] Provider ST ARZATE ASPIRIN 81 MG TBE -Garduno ASPIRIN 71185941634 Naun Javed MD CRESTOR 20 MG TABS -Garduno ROSUVASTATIN CALCIUM 49154255048 Naun Javed MD AMLODIPINE BESYLATE 10 MG TABS -Garduno AMLODIPINE BESYLATE 12659034703 Naun Javed MD BENAZEPRIL HCL 40 MG TABS - BE[place]ZEPR[place] HCL 38363406293 Naun Javed MD LEVOTHYROXINE SODIUM 125 MCG TABS - LEVOTHYROXINE SODIUM 46561255446 Naun Javed MD OXYCODONE-ACETAMI NOPHEN 10-325 MG TABS -Garduno OXYCODONE-ACETAMI NOPHEN 19216205739 Naun Javed MD SPIRONOLACTONE 25 MG TABS -Garduno SPIRONOLACTONE 35333336370 Naun Javed MD PREDNISONE 10 MG TABS -Garduno PREDNISONE 59518648507 Naun Javed MD AMLODIPINE BESY-BENAZEPRIL HCL 5-20 MG CAPS -Garduno AMLODIPINE BESY-BENAZEPRIL HCL 25531009722 Naun Javed MD ROXICET 5-325 MG/5ML ORAL SOLUTION -Garduno OXYCODONE-ACETAMI NOPHEN 70786223217 Naun Javed MD BISOPROLOL FUMARATE TABS -Garduno BISOPROLOL FUMARATE TABS 05209167006 Naun Javed MD SYNTHROID TABS [facility] LEVOTHYROXINE SODIUM TABS 73241614898 Naun Javed MD CRESTOR 20 MG TABS [facility] ROSUVASTATIN CALCIUM 91881346208 Naun Javed MD AMLODIPINE BESY-BENAZEPRIL HCL 5-20 MG CAPS Non[facility] AMLODIPINE BESY-BENAZEPRIL HCL 78659198656 Maggie Rich MA ROXICET 5-325 MG/5ML ORAL SOLUTION [facility] OXYCODONE-ACETAMI NOPHEN [id number] Maggie Rich MA BISOPROLOL FUMARATE TABS [facility] BISOPROLOL FUMARATE TABS 53586415217 Maggie Rich MA SYNTHROID TABS [facility] LEVOTHYROXINE SODIUM TABS 18794447307 Maggie Rich MA CRESTOR 20 MG TABS [facility] ROSUVASTATIN CALCIUM 95193586493 Maggie Rich MA Medications Administered No information [...]
--- OUTSIDE RECORDS SUMMARY | 2025-06-27 09:07 | XMS_ITS | Clinical Summary ---
Author Organization [facility] Address [address] [place] [address] Care Team Providers Care Aeronautical Engineering Professor Name Role Phone Mikie Bermudez MD Primary Care Provider [phone] Social History Tobacco Use Types Packs/Day Years [...] (2 of 2 - PCV) 08/10/2021 08/10/2020 [id number] Vaccine (4 - season) 2025 07/13/2022, 08/04/2021, [...] patient's age to complete this topic Insurance [place] [address] MEDICARE Care Teams Aeronautical Engineering Professor Relationship Specialty Start Date End Date Mikie Bermudez MD PCP - General 02/05/21
== END 2025-06-27 23:59 | disposition home or self-care (01) ==
LOC: RAD 09:04
PROVIDERS: PCP Family Medicine; Visit Provider Family Medicine
DX: M19.071 Primary osteoarthritis, right ankle and foot (principal); Q74.2 Other congenital malformations of lower limb(s), including pelvic girdle; Q66.6 Other congenital valgus deformities of feet; M79.89 Other specified soft tissue disorders; M25.572 Pain in left ankle and joints of left foot; M25.571 Pain in right ankle and joints of right foot; M79.672 Pain in left foot
CPT/HCPCS: 73610; 73630

== ENCOUNTER 2025-07-14 09:51 | Outpatient (CLI) | payer MEDICARE, SELFPAY ==
[2025-07-14 16:29] LABS: Hematocrit 46.2 % (42.0-52.0); Hemoglobin 14.9 g/dL (14.1-18.0); Immature Granulocytes % 0.3 %; Mean Corpuscular HGB Conc 32.3 g/dL (31.8-35.4); Mean Corpuscular Hemoglobin 29.5 pg (27.0-31.2); Mean Corpuscular Volume 91.5 fl (80-94); Nucleated Red Blood Cells % 0 %; Platelet Count 262 K/mm3 (142-424); Red Blood Count 5.05 M/mm3 (4.60-6.20); Red Cell Distribution Width-SD 49.4 fL; White Blood Count 13.6 K/mm3 (4.8-10.8)
[2025-07-14 17:14] LABS: Alanine Aminotransferase 36 U/L (12-78); Albumin Level 3.7 g/dl (3.5-5.0); Albumin/Globulin Ratio 1.5 (1.1-1.8); Alkaline Phosphatase 126 U/L (38-126); Anion Gap 13.2 mEq/L (5-15); Aspartate Amino Transferase 28 U/L (17-59); Bilirubin,Total 0.7 mg/dl (0.2-1.3); Blood Urea Nitrogen 29 mg/dl (9-20); Calcium 9.7 mg/dl (8.4-10.2); Carbon Dioxide 32 mmol/L (22.0-30.0); Chloride 95 mmol/L (98-107); Creatinine,Serum 1.20 mg/dl (0.66-1.25); Estimated Glomerular Filt Rate 60 ml/min (>60); GFR (African American) 73 ML/MIN (>60); Globulin 2.5 g/dL (1.3-3.2); Glucose 103 mg/dl (74-100); Potassium 3.2 mmoL/L (3.5-5.1); Sodium 137 mmol/L (136-145); Total Protein,Serum 6.2 g/dl (6.3-8.2)
[2025-07-14 17:20] LABS: C-Reactive Protein 10.1 mg/L (0-4)
[2025-07-14 17:45] LABS: Thyroid Stimulating Hormone 0.16 uIU/mL (0.465-4.68)
--- OUTSIDE RECORDS SUMMARY | 2025-07-16 10:28 | XMS_ITS | Clinical Summary ---
Author Organization [facility] Address [facility] [address] Phone Care Team Providers Care Hot Baller Name Role Phone Vilma Moreno MD, [place] Primary Care Provider + Allergies No known [...] TUNNEL RELEASE; Surgeon: Andrés Odom MD; Location: [facility]; Service: Hand CARPAL TUNNEL RELEASE 10/25/2012 Hand/Right RIGHT CARPAL TUNNEL RELEASE ; Surgeon: Andrés Odom MD; Location: [facility]; Service: Hand Medical History Medical History Date [...] of 2) 01/17/2006 COVID-19 Vaccine ( - 2024-2 6 season) 2025 Influenza Vaccine (#1) 2025 Hepatitis B Vaccine Aged Out No longe r eligible based on patient's age to complete this topic Meningococcal B Vaccine Aged Out No l onger eligible based on patient's age to complete this topic Insurance PPO on file Care Teams Hot Baller Relationship Specialty Start Date End Date Josemanuel Esparza MD [address] [place] [phone] PCP - General Family Medicine 12/01/11
--- OUTSIDE RECORDS SUMMARY | 2025-07-16 10:28 | XMS_ITS ---
Laboratory report Created on: July 02, 2025 OSMAN HITCHCOCK : 1955 Sex: Male Author Organization Unknown PROBLEMS Problems List Code Description RESULTS Laboratory Orders Date Order Code Test 2025-06-25 [id number] ANTINUCLEAR AB 9 BY MULTIPLEX 2025-06-25 [id number] JAMES BY IFA RFX T ITER/PATTERN 2025-06-25 [id number] RHEUMATOID FACTO R (RF) Laboratory Results Date LOINC Test Value Unit Reference Range Interpre tation 2025-06-25 5130-0 ANTI-DNA (DS) AB QN 1 IU/ML 0-9 2025-06-25 34177-4 HOTEL SUPERINTENDENT ANTIBODIES .3 AI 0.0-0.9 2025-06-25 32837-4 BANKS ANTIBODIES <0.2 AI 0.0-0.9 2025-06-25 80069-2 ANTISCLERODERMA- 70 ANTIBODIES .2 AI 0.0-0.9 2025-06-25 30192-6 SJOGREN'S ANTI-SS-A <0.2 AI 0.0-0.9 2025-06-25 12966-6 SJOGREN'S ANTI-SS-B <0.2 AI 0.0-0.9 2025-06-25 47406-7 ANTICHROMATIN ANTIBODIES <0.2 AI 0.0-0.9 2025-06-25 19597-0 ANTI-ZAIN-1 <0.2 AI 0.0-0.9 2025-06-25 34014-0 ANTI-CENTROMERE B ANTIBODIES <0.2 AI 0.0-0.9 2025-06-25 70553-3 JAMES BY IFA RFX TITER/PATTERN N 2025-06-25 66464-3 RHEUMATOID FACTOR (RF) <10.0 IU/ML <14.0
--- OUTSIDE RECORDS SUMMARY | 2025-07-16 10:28 | XMS_ITS | Clinical Summary ---
Author Organization [facility] Address [address] [place] [address] Care Team Providers Care Microbiology Lab Manager Name Role Phone Mikie Bermudez MD Primary Care Provider [phone] Andrés Mansfield MD Unavailable Allergies No known [...] season) 2025 Influenza Vaccination (#1) [address] [facility] MEDICARE MEDICAID [place] Care Teams Microbiology Lab Manager Relationship Specialty [place] [address] [place] [address] PCP - General Family Medicine 01/25/23 Andrés Mansfield MD [address] [facility] [address] [place] [address] Interventional Cardiology 01/26/23
--- OUTSIDE RECORDS SUMMARY | 2025-07-16 10:28 | XMS_ITS | Clinical Summary ---
Author Organization [facility] Address [address] [place] [address] Care Team Providers Care Assembler Musical Equipment Name Role Phone Mikie Bermudez MD Primary Care Provider [phone] Social History Tobacco Use Types Packs/Day Years [...] (2 of 2 - PCV) 08/10/2021 08/10/2020 [id number] Vaccine (4 - season) 2025 07/13/2022, 08/04/2021, [...] patient's age to complete this topic [place] [address] [place] [address] MEDICARE Care Teams Assembler Musical Equipment Relationship Specialty Start Date End Date Mikie Bermudez MD PCP - General 02/05/21
== END 2025-07-14 23:59 ==
LOC: LAB.DROPOF 07-16 10:25
PROVIDERS: PCP Family Medicine; Visit Provider Family Medicine
DX: I27.20 Pulmonary hypertension, unspecified (principal); I95.9 Hypotension, unspecified; E03.9 Hypothyroidism, unspecified; R79.82 Elevated C-reactive protein (CRP); E66.9 Obesity, unspecified; I11.0 Hypertensive heart disease with heart failure; I50.9 Heart failure, unspecified
CPT/HCPCS: 80053; 84443; 85025; 86140

== ENCOUNTER 2025-07-18 09:25 | Emergency (ER) | payer MEDICARE, SELFPAY ==
[2025-07-18] VITALS (33 sets, daily range): BP systolic 93–138; BP diastolic 60–113; PULSE 43–159; RESP 12–18; TEMP 36.7–37; O2SAT 95–100; BMI 40.7
--- NOTE | 2025-07-18 09:33 | ECG_ITS ---
APPROVED REPORT Exam: Resting ECG HR:156 bpm ECG Measurements Heart Rate 156 AXES ND 70 P 52 QRSd 140 QRS -46 QT 313 T 144 QTc 401 Conclusion SINUS TACHYCARDIA WITH SHORT ND INTERVAL, POSSIBLE ATRIAL FLUTTER LEFT AXIS DEVIATION [QRS AXIS < -30] LEFT BUNDLE BRANCH BLOCK [120+ ms QRS DURATION, 80+ ms Q/S IN V1/V2, 85+ ms R IN I/aVL/V5/V6] CRITICAL TEST RESULT UNCONFIRMED REPORT Electronically signed by : David Yoder, 07/18/2025 15:40:07
--- OUTSIDE RECORDS SUMMARY | 2025-07-18 09:37 | XMS_ITS | Clinical Summary ---
Author Organization [facility] Address [address] [place] [address] Care Team Providers Care Managed Care Provider Name Role Phone Mikie Bermudez MD Primary Care Provider [phone] Andrés Mansfield MD Unavailable Allergies No known [...] season) 2025 Influenza Vaccination (#1) 2025 Insurance [facility] MEDICARE MEDICAID [place] Care Teams Managed Care Provider Relationship Specialty Start [place] [address] [place] [address] PCP - General Family Medicine 01/25/23 Andrés Mansfield MD [address] [facility] [address] [place] [address] Interventional Cardiology 01/26/23
--- OUTSIDE RECORDS SUMMARY | 2025-07-18 09:37 | XMS_ITS | Clinical Summary ---
Author Organization [facility] Address [address] [facility] [address] [place] [address] Phone Care Team Providers Care Channeler Insole Name Role Phone Eduarda Rdz Unavailable [phone] Conditions or Problems Problem Name Problem Code Onset Date Status Entry Date Provider Comment Standard Description Annotate FOLLOW-UP EXAMINATION, AFTER SURGERY NEC Z09 (ICD-10-CM ) 05/16 Active 05/16 Naun Javed MD Encounter for follow-up examination after completed treatment for conditions other than malignant neoplasm HERNIATED LUMBAR DISC 369239201 (SNOMED CT) 04/22 Active 04/22 Naun Javed MD Prolapsed lumbar intervertebral disc SPONDYLOSIS, 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 (ICD-10-CM ) 02/28 Active 02/28 Naun Javed MD Spondylosis without myelopathy or radiculopathy, cervical region Take Note of HEADACHE 87023390 (SNOMED CT) 02/28 Active 02/28 Maggie Rich MA Headache Take Note of JOINT STIFFNESS 95651059 (SNOMED CT) 02/28 Active 02/28 Maggie Rich MA Joint stiffness Take Note of MUSCLE CRAMPS 92839600 (SNOMED CT) 02/28 Active 02/28 Maggie Rich MA Cramp Take Note of BACK PAIN 331758807 (SNOMED CT) 02/28 Active 02/28 Maggie Rich MA Backache Take Note of COUGH 51007064 (SNOMED CT) 02/28 Active 02/28 Maggie Rich MA Cough Take Note of MALAISE AND FATIGUE 431279041 (SNOMED CT) 02/28 Active 02/28 Maggie Rich MA Malaise and fatigue Take Note of SWEATING 960458976 (SNOMED CT) 02/28 Active 02/28 Maggie Rich MA Sweating Take Note of THYROID DISEASE, HX OF 112625134 (SNOMED CT) 02/28 Active 02/28 Maggie Rich MA H/O: thyroid disorder Take Note of HYPERCHOLESTE ROLEMIA 32799449 (SNOMED CT) 02/28 Active 02/28 Maggie Rich MA Hypercholesterole hannah Medications Medication Instructions Start Date Stop Date Generic Name [facility] Provider ST ARZATE ASPIRIN 81 MG TBE -[place] ASPIRIN [id number] Naun Javed MD CRESTOR 20 MG TABS -[place] ROSUVASTATIN CALCIUM [id number] Naun Javed MD AMLODIPINE BESYLATE 10 MG TABS -[place] AMLODIPINE BESYLATE [id number] Naun Javed MD BENAZEPRIL HCL 40 MG TABS - [place] HCL [id number] Naun Javed MD LEVOTHYROXINE SODIUM 125 MCG TABS - LEVOTHYROXINE SODIUM [id number] Naun Javed MD OXYCODONE-ACETAMI NOPHEN 10-325 MG TABS -[place] OXYCODONE-ACETAMI NOPHEN [id number] Naun Javed MD SPIRONOLACTONE 25 MG TABS -[place] SPIRONOLACTONE [id number] Naun Javed MD PREDNISONE 10 MG TABS -[place] PREDNISONE [id number] Naun Javed MD AMLODIPINE BESY-BENAZEPR[place] HCL 5-20 MG CAPS -[place] AMLODIPINE BESY-[place] HCL [id number] Naun Javed MD ROXICET 5-325 MG/5ML ORAL SOLUTION -[place] OXYCODONE-ACETAMI NOPHEN [id number] Naun Javed MD BISOPROLOL FUMARATE TABS -[place] BISOPROLOL FUMARATE TABS [id number] Naun Javed MD SYNTHROID TABS [facility] LEVOTHYROXINE SODIUM TABS [id number] Naun Javed MD CRESTOR 20 MG TABS [place] ROSUVASTATIN CALCIUM [id number] Naun Javed MD AMLODIPINE BESY-[place] HCL 5-20 MG CAPS [place] AMLODIPINE BESY-[place]ZEPR[place] HCL [id number] Maggie Rich MA ROXICET 5-325 MG/5ML ORAL SOLUTION [facility] OXYCODONE-ACETAMI NOPHEN [id number] Maggie Rich MA BISOPROLOL FUMARATE TABS [facility] BISOPROLOL FUMARATE TABS [id number] Maggie Rich MA SYNTHROID TABS [facility] LEVOTHYROXINE SODIUM TABS [id number] Maggie Rich MA CRESTOR 20 MG TABS [facility] ROSUVASTATIN CALCIUM [id number] Maggie Rich MA Medications Administered No information [...]
--- OUTSIDE RECORDS SUMMARY | 2025-07-18 09:37 | XMS_ITS | Clinical Summary ---
Author Organization [facility] Address [address] [place] [address] Care Team Providers Care Oncology Physician Name Role Phone Mikie Bermudez MD Primary Care Provider [phone] Social History Tobacco Use Types Packs/Day Years [...] (2 of 2 - PCV) 08/10/2021 08/10/2020 [id number] Vaccine (4 - season) 2025 07/13/2022, 08/04/2021, [...] patient's age to complete this topic Insurance [place] [address] MEDICARE Care Teams Oncology Physician Relationship Specialty Start Date End Date Mikie Bermudez MD PCP - General 02/05/21
--- OUTSIDE RECORDS SUMMARY | 2025-07-18 09:37 | XMS_ITS | Clinical Summary ---
Author Organization [facility] Address [facility] [place] [address] Phone Care Team Providers Care Web Press Roll Tender Name Role Phone Vilma Moreno MD, [place] Primary Care Provider + Allergies No known [...] TUNNEL RELEASE; Surgeon: Andrés Odom MD; Location: [facility]; Service: Hand CARPAL TUNNEL RELEASE 10/25/2012 Hand/Right RIGHT CARPAL TUNNEL RELEASE ; Surgeon: Andrés Odom MD; Location: [facility]; Service: Hand Medical History Medical History [...] topic Insurance PPO on file Care Teams Web Press Roll Tender Relationship Specialty Start Date End Date Josemaneul Esparza MD [address] [place] [phone] PCP - General Family Medicine 12/01/11
--- NOTE | 2025-07-18 09:49 | XR_ITS ---
FINAL REPORT CLINICAL HISTORY: dyspnea COMPARISON: 03/03/2025 FINDINGS: No acute pulmonary opacity is present. There is no evidence of effusion or pneumothorax. Mediastinum is unremarkable. Heart size is normal. IMPRESSION: No acute abnormality. Reviewed, Interpreted and Dictated by Meseret Hernández MD Transcribed by Hannah Jessica Authenticated and [facility]
--- NOTE | 2025-07-18 09:52 | HMH.EDGENADL ---
Discharge Plan Disposition Patient Disposition: Home, Self-Care Prescriptions Prescriptions: No Action dapagliflozin propanediol [Farxiga] 10 mg tablet 10 mg PO DAILY Qty: 90 5RF ipratropium-albuterol 0.5 mg-3 mg(2.5 mg base)/3 mL solution for nebulization 3 ml inhalation QID PRN (Reason: shortness of breath or wheezing) 90 Days Qty: 270 2RF albuterol sulfate [Ventolin HFA] 90 mcg/actuation HFA aerosol inhaler 2 inh inhalation QID PRN (Reason: shortness of breath or wheezing) 90 Days Qty: 8.5 3RF Trelegy Ellipta 200-62.5-25 mcg blister with device 1 inh inhalation DAILY 90 Days Qty: 90 2RF pantoprazole 40 mg tablet,delayed release (DR/EC) 40 mg PO HS Qty: 90 3RF tirzepatide (weight loss) 7.5 mg/0.5 mL pen injector 7.5 mg SQ WEEKLY Qty: 2 2RF Eliquis 5 mg tablet 5 mg PO BID Qty: 180 3RF aspirin [Adult Low Dose Aspirin] 81 mg tablet,delayed release (DR/EC) 81 mg PO DAILY Qty: 90 3RF metoprolol succinate 200 mg tablet extended release 24 hr 200 mg PO DAILY Qty: 90 3RF rosuvastatin 20 mg tablet 20 mg PO HS Qty: 90 3RF spironolactone 25 mg tablet 25 mg PO DAILY Qty: 90 3RF torsemide 100 mg tablet 50 mg PO DAILY Qty: 90 2RF prednisone 20 mg tablet See Rx Instructions .ROUTE .COMPLEX Qty: 30 0RF Rx Instructions: three po today, two daily for 5 days, one daily for 5 days prednisone 20 mg tablet See Rx Instructions PO DAILY Qty: 20 0RF Rx Instructions: one daily for 10 days, one every other day for 10 days, half every other day until gone levothyroxine [Synthroid] 200 mcg tablet 200 mcg PO DAILY Qty: 90 3RF Referrals Follow up/Referrals: Alejandro Jenkins MD [Staff Physician, Cardiology] - See instructions Mikie Bermudez MD [Primary Care Provider, Family Practice] - See instructions Activity Restrictions/Add. Instructions Additional Instructions/Restrictions: Today you had atrial flutter with rapid ventricular response which was improved with electrical cardioversion please continue your anticoagulation and all your home medications and follow-up closely with Dr. Jenkins's clinic and return with any worsening of your symptoms or other concerns. Clinical Impressions Clinical Impression: Atrial flutter with rapid ventricular response, Myocardial injury Print Language Print Language: Angolan Discharge ED Provider: Mary Yoder General Adult HPI General Chief complaint: Arrhythmia/Palpitations Stated complaint: fluctuating BP, history of A-fib Time Seen by Provider: 07/18/25 09:39 History of Present Illness HPI narrative: Patient is a 70-year-old gentleman who has a history of atrial fibrillation that is paroxysmal he is chronically anticoagulated on Eliquis and has not missed any doses presents today with his heart fluttering and feeling lightheaded as if he is going to pass out. Had a myocardial perfusion study done earlier this year which showed a large reversible defect subsequently had a heart cath which was unremarkable specifically also had a normal LVEF at that time. He is on a beta-ora. Denies any significant chest pain shortness of breath fevers chills etc. Does state he has had some lower extremity edema recently. He recently saw cardiology for this purpose. Related Data Previous Rx's ?Medication ?Instructions ?Recorded dapagliflozin propanediol 10 mg 10 mg PO DAILY #90 tabs 09/11/24 tablet (Farxiga) pantoprazole 40 mg tablet,delayed 40 mg PO HS #90 tabs 03/10/25 release albuterol sulfate 90 mcg/actuation 2 inh inhalation QID PRN shortness 04/01/25 aerosol inhaler (Ventolin HFA) of breath or wheezing 90 days #8.5 grams fluticasone fur. 200 mcg-umeclid 1 inh inhalation DAILY 90 days #90 04/01/25 62.5 mcg-vilant 25 mcg ea inhalat.powder (Trelegy Ellipta) ipratropium 0.5 mg-albuterol 3 mg 3 ml inhalation QID PRN shortness 04/01/25 (2.5 mg base)/3 mL nebulization of breath or wheezing 90 days #270 soln mL apixaban 5 mg tablet (Eliquis) 5 mg PO BID #180 tabs 07/03/25 aspirin 81 mg tablet,delayed 81 mg PO DAILY #90 tabs 07/03/25 release (Adult Low Dose Aspirin) metoprolol succinate 200 mg 200 mg PO DAILY #90 tabs 10/09/25 tablet,extended release 24 hr rosuvastatin 20 mg tablet 20 mg PO HS #90 tabs 07/03/25 spironolactone 25 mg tablet 25 mg PO DAILY #90 tabs 07/03/25 tirzepatide (weight loss) 7.5 7.5 mg (0.5 mL) SQ WEEKLY #2 mL 07/03/25 mg/0.5 mL subcutaneous pen injector torsemide 100 mg tablet 50 mg (1/2 x 100 mg) PO DAILY #90 07/03/25 tabs prednisone 20 mg tablet See Rx Instructions .Route 07/10/25 .COMPLEX #30 tabs prednisone 20 mg tablet See Rx Instructions PO DAILY #20 07/14/25 tabs levothyroxine 200 mcg tablet 200 mcg PO DAILY #90 tabs 07/17/25 (Synthroid) Allergies Allergy/AdvReac Type Severity Reaction Status Date / Time No Known Allergies Allergy Verified 07/14/25 08:39 [facility] Disclaimer: The information contained in this section may have been updated after the patient was seen, as this information can be updated by other users. Medical History Chronic diastolic (congestive) heart failure Ventricular tachycardia Pulmonary hypertension Atypical angina Abnormal findings on diagnostic imaging of heart and coronary circulation PAF (paroxysmal atrial fibrillation) Elevated troponin Acute on chronic heart failure with preserved ejection fraction (HFpEF) COPD (chronic obstructive pulmonary disease) Wide-complex tachycardia (HFpEF) heart failure with preserved ejection fraction HTN (hypertension), benign Lung nodule Restrictive lung disease COPD mixed type Dyspnea on exertion Stopped smoking with greater than 30 pack year history History of COPD Allergic rhinitis Renal cyst, right Chest pain Hyperlipidemia Surgical History History of cataract surgery History of testicular surgery History of bilateral carpal tunnel release History of back surgery History of surgery on lower extremity History of colonoscopy History of tonsillectomy Family History Other Diabetes Hypertension Social History (Updated 07/14/25 @ 08:35 by Sierra Palmer MA) Smoking Status: Former smoker years smoked: 25 smoking status stop date: 2014 alcohol intake: never substance use type: denies use current occupational status: retired Travel in the last 8 weeks?: None household members: spouse housing: house Have you lived/traveled outside US in past 30 days?: No Contact w/someone who lives/traveled outside US past 30 days?: No Exposure to someone with infectious disease in past 14 days?: No Do you have a fever (greater than 100.4 F or 38 C)?: No Have you tested positive for COVID-19?: No Exposed to someone with COVID-19 in past 14 days?: No Do you have a sore throat?: No Do you have a cough?: No Do you have any weakness?: No Do you have any diarrhea?: No Are you experiencing any unusual bleeding?: No Do you have any muscle aches/pain?: No Do you have any abdominal pain?: No Are you experiencing loss of taste or smell?: No Other Medical History Have you received the Flu Vaccine for this season: No Have you received the Pneumonia Vaccine: Yes ROS Obtained: Yes All systems reviewed & no additional complaints except as documented Physical Exam General General appearance: alert and in no apparent distress Respiratory Respiratory exam: Present normal lung sounds bilaterally; Absent respiratory distress Cardiovascular Cardiovascular exam: Present irregular rhythm; Absent normal rhythm Neurological Exam Neurological exam: Present alert and oriented X3 Medical Decision Making Medical Records Screening: Per USPSTF and CDC recommendations, given the prevalence of disease in our region, it is our hospital?s policy to screen for HIV and viral Hepatitis for all patients aged 18 and over and those with ongoing risk factors. Luis Inquiry Pt receiving controlled substance: No Vital Signs: 07/18/25 09:35 07/18/25 10:01 07/18/25 10:11 Temperature Temperature Source Pulse Rate 159 H 78 77 Pulse Rate [Left Radial] Respiratory Rate Blood Pressure 115/61 108/72 L 107/76 L Blood Pressure [Right Arm] Blood Pressure Mean Blood Pressure Mean [Right Arm] Blood Pressure Source [Right Arm] Blood Pressure Position [Right Arm] 02 Sat by Pulse Oximetry 97 96 95 Oxygen Delivery Method Oxygen Flow Rate (LPM) 07/18/25 10:20 07/18/25 10:26 07/18/25 10:30 Temperature 98.6 F Temperature Source Oral Pulse Rate 132 H 60 Pulse Rate [Left Radial] 154 H Respiratory Rate 17 Blood Pressure 112/78 121/95 H Blood Pressure [Right Arm] 115/87 Blood Pressure Mean Blood Pressure Mean [Right Arm] 96 Blood Pressure Source [Right Arm] Automatic Cuff Blood Pressure Position [Right Arm] Sitting 02 Sat by Pulse Oximetry 96 98 96 Oxygen Delivery Method Room Air Oxygen Flow Rate (LPM) 07/18/25 10:41 07/18/25 10:51 07/18/25 11:11 Temperature Temperature Source Pulse Rate 65 Pulse Rate [Left Radial] Respiratory Rate 17 Blood Pressure 102/86 L 102/71 L 138/113 H Blood Pressure [Right Arm] Blood Pressure Mean 81 Blood Pressure Mean [Right Arm] Blood Pressure Source [Right Arm] Blood Pressure Position [Right Arm] 02 Sat by Pulse Oximetry 97 96 Oxygen Delivery Method Room Air Oxygen Flow Rate (LPM) 07/18/25 11:20 07/18/25 11:20 07/18/25 11:22 Temperature Temperature Source Pulse Rate 159 H 48 L Pulse Rate [Left Radial] 149 H Respiratory Rate 16 Blood Pressure 95/73 L 101/64 L Blood Pressure [Right Arm] 120/71 Blood Pressure Mean Blood Pressure Mean [Right Arm] 87 Blood Pressure Source [Right Arm] Automatic Cuff Blood Pressure Position [Right Arm] Supine 02 Sat by Pulse Oximetry 100 98 100 Oxygen Delivery Method Room Air Room Air Room Air Oxygen Flow Rate (LPM) 07/18/25 11:25 07/18/25 11:26 07/18/25 11:30 Temperature Temperature Source Pulse Rate 49 L 55 L 61 Pulse Rate [Left Radial] Respiratory Rate Blood Pressure 104/79 L 115/83 115/77 Blood Pressure [Right Arm] Blood Pressure Mean Blood Pressure Mean [Right Arm] Blood Pressure Source [Right Arm] Blood Pressure Position [Right Arm] 02 Sat by Pulse Oximetry 98 95 99 Oxygen Delivery Method Nasal Cannula Nasal Cannula Nasal Cannula Oxygen Flow Rate (LPM) 2 2 2 07/18/25 11:35 07/18/25 11:40 07/18/25 11:45 Temperature Temperature Source Pulse Rate 52 L 62 64 Pulse Rate [Left Radial] Respiratory Rate Blood Pressure 116/77 106/86 L 105/75 L Blood Pressure [Right Arm] Blood Pressure Mean Blood Pressure Mean [Right Arm] Blood Pressure Source [Right Arm] Blood Pressure Position [Right Arm] 02 Sat by Pulse Oximetry 99 100 98 Oxygen Delivery Method Nasal Cannula Nasal Cannula Nasal Cannula Oxygen Flow Rate (LPM) 2 2 2 07/18/25 11:50 07/18/25 11:55 07/18/25 12:02 Temperature Temperature Source Pulse Rate 43 L 47 L 77 Pulse Rate [Left Radial] Respiratory Rate Blood Pressure 96/71 L 96/70 L 116/83 Blood Pressure [Right Arm] Blood Pressure Mean Blood Pressure Mean [Right Arm] Blood Pressure Source [Right Arm] Blood Pressure Position [Right Arm] 02 Sat by Pulse Oximetry 98 98 99 Oxygen Delivery Method Nasal Cannula Nasal Cannula Nasal Cannula Oxygen Flow Rate (LPM) 2 2 2 07/18/25 12:05 07/18/25 12:10 07/18/25 12:10 Temperature Temperature Source Pulse Rate 73 56 L Pulse Rate [Left Radial] 72 Respiratory Rate 17 Blood Pressure 107/73 L 99/67 L Blood Pressure [Right Arm] 107/73 L Blood Pressure Mean Blood Pressure Mean [Right Arm] 84 Blood Pressure Source [Right Arm] Automatic Cuff Blood Pressure Position [Right Arm] Sitting 02 Sat by Pulse Oximetry 99 98 99 Oxygen Delivery Method Nasal Cannula Room Air Oxygen Flow Rate (LPM) 2 07/18/25 12:14 07/18/25 12:19 07/18/25 12:24 Temperature Temperature Source Pulse Rate 68 73 70 Pulse Rate [Left Radial] Respiratory Rate Blood Pressure 100/69 L 106/70 L 102/74 L Blood Pressure [Right Arm] Blood Pressure Mean Blood Pressure Mean [Right Arm] Blood Pressure Source [Right Arm] Blood Pressure Position [Right Arm] 02 Sat by Pulse Oximetry 99 99 99 Oxygen Delivery Method Room Air Room Air Oxygen Flow Rate (LPM) 07/18/25 12:31 07/18/25 12:35 07/18/25 12:40 Temperature Temperature Source Pulse Rate 96 H 69 Pulse Rate [Left Radial] Respiratory Rate 14 18 Blood Pressure 111/92 H 95/71 L 100/73 L Blood Pressure [Right Arm] Blood Pressure Mean Blood Pressure Mean [Right Arm] Blood Pressure Source [Right Arm] Blood Pressure Position [Right Arm] 02 Sat by Pulse Oximetry 100 Oxygen Delivery Method Room Air Room Air Room Air Oxygen Flow Rate (LPM) 07/18/25 12:46 07/18/25 13:01 Temperature Temperature Source Pulse Rate 55 L 75 Pulse Rate [Left Radial] Respiratory Rate 14 15 Blood Pressure 95/65 L 93/60 L Blood Pressure [Right Arm] Blood Pressure Mean Blood Pressure Mean [Right Arm] Blood Pressure Source [Right Arm] Blood Pressure Position [Right Arm] 02 Sat by Pulse Oximetry 98 98 Oxygen Delivery Method Room Air Room Air Oxygen Flow Rate (LPM) Lab Data Lab results reviewed: Yes I reviewed the patient's lab results. Lab Results 07/18/25 09:35: D-Dimer 0.49, Sodium 133 L, Potassium 3.5, Chloride 94 L, Carbon Dioxide 33 H, Anion Gap 9.5, BUN 36 H, Creatinine 1.30 H, Estimated GFR 55 L, Est GFR ( Amer) 66, Glucose 109 H, Calcium 9.4, Magnesium 2.4 H, Total Bilirubin 1.2, AST 33, ALT 39, Alkaline Phosphatase 83, Troponin I 0.10 H, NT-Pro-B Natriuret Pep 6800 H, Total Protein 7.0, Albumin 4.0, Globulin 3.0, Albumin/Globulin Ratio 1.3, TSH 0.59 D 07/18/25 11:16: WBC 16.3 H, RBC 5.23, Hgb 15.6, Hct 47.4, MCV 90.6, MCH 29.8, MCHC 32.9, RDW 14.9, Plt Count 266, MPV 10.3, Neut % (Auto) 77.3, Lymph % (Auto) 15.2, Murray % (Auto) 6.1, Eos % (Auto) 0.7, Baso % (Auto) 0.2, Neut # (Auto) 12.6 H, Lymph # (Auto) 2.5, Murray # (Auto) 1.0, Eos # (Auto) 0.1, Baso # (Auto) 0.0 07/18/25 12:41: Troponin I 0.12 H 07/18/25 11:16 07/18/25 09:35 Orders (Tests/Meds): ED MEDICATIONS Discontinued Medications Generic Name Dose Route Start Last Admin Trade Name Freq PRN Reason Stop Dose Admin Fentanyl Citrate 100 mcg 07/18/25 11:20 07/18/25 11:21 Fentanyl 100mcg/2ml Vial IV 07/18/25 11:21 100 mcg ONCE ONE Administration Magnesium Sulfate 2 gm in 50 mls @ 50 mls/hr 07/18/25 09:49 07/18/25 10:53 Magnesium Sulfate 2gm/50ml Premix IV 07/18/25 10:48 Infused ONCE ONE Infusion Lactated Ringer's 1,000 mls @ 999 mls/hr 07/18/25 11:20 07/18/25 11:20 Lactated Ringer's 1000 Ml Bag IV 07/18/25 12:20 999 mls/hr .Q1H1M ONE Administration Metoprolol Tartrate 5 mg 07/18/25 09:51 07/18/25 09:57 Metoprolol Tartrate 5mg/5ml Vial IV 07/18/25 09:52 5 mg ONCE ONE Administration Metoprolol Tartrate 5 mg 07/18/25 10:20 07/18/25 10:25 Metoprolol Tartrate 5mg/5ml Vial IV 07/18/25 10:21 5 mg ONCE ONE Administration Metoprolol Tartrate 5 mg 07/18/25 10:35 07/18/25 10:35 Metoprolol Tartrate 5mg/5ml Vial IV 07/18/25 10:36 5 mg ONCE ONE Administration Midazolam HCl 2 mg 07/18/25 11:20 07/18/25 11:23 Midazolam 5mg/Ml 1ml Vial IV 07/18/25 11:21 2 mg ONCE ONE Administration ORDERS Category Date Time Status CXR --portable [XR chest portable] Stat Exams 07/18/25 09:49 Completed BNP [NT Pro Brain Natriuretic Pep.] Stat Lab 07/18/25 09:35 Completed CBC w/Auto Diff [Complete Blood Count Auto Diff] Stat Lab 07/18/25 11:16 Completed CMP [Comprehensive Metabolic Panel] Stat Lab 07/18/25 09:35 Completed D-Dimer Stat Lab 07/18/25 09:35 Completed Magnesium Stat Lab 07/18/25 09:35 Completed TSH [Thyroid Stimulating Hormone] Stat Lab 07/18/25 09:35 Completed Trop I [Troponin I] Stat Lab 07/18/25 09:35 Completed Troponin I Q3H Lab 07/18/25 12:41 Completed Troponin I Q3H Lab 07/18/25 16:00 Ordered Medical Decision Narrative: Patient with above history and physical he has an irregular irregular rhythm on my evaluation this is consistent with A-fib. EKG was performed which showed a wide-complex tachycardia but looking at old EKGs he has a known left bundle branch block so this is consistent with A-fib with aberrancy . Heart rate is in the 150s and 160s he is very symptomatic we will get him rate controlled and consider rhythm control after his workup is complete. Magnesium and beta-ora have been administered IV. He has a normal LVEF I do not think that a beta-ora IV will cause any harm at this point. EKG was performed I personally turbid shows a ventricular rate of 156 there are some questionable P waves but in retrospect most likely A-fib with aberrancy consistent with old left bundle branch block. Reassessment 11:33 AM after multiple doses of IV metoprolol and magnesium patient's heart rate did not improve. Ultimately patient was consented and moderate sedation with electrical cardioversion was performed. This was successful. There were clear flutter waves in the middle of the procedure. Twelve-lead will be repeated once the patient is fully awake. Patient does have a mild elevation in troponin at 0.1 which is most likely just a mild myocardial injury we will get a serial troponin to make sure there is no significant delta which would not be concerning in the setting of A-fib/a flutter with RVR. Patient did have some apnea after his procedure however he was placed on a nonrebreather and stimulated while his drugs metabolized. Never became hypoxic never had any prolonged episodes of apnea. Reassessment 1:29 PM patient is wide-awake feeling much better heart rate is remained in the 70s. He does appear to still be in atrial fibrillation but is no longer in atrial flutter with rapid ventricular response or A-fib with rapid ventricular response. No alternative explanation to the patient's symptoms other than just a primary electrical abnormality. Does have a mild elevation in his troponin which on serial assessments did not show significant delta therefore this is consistent with a mild myocardial injury secondary to the RVR this is not consistent with an ischemic or type I event. No indication for hospitalization. He is on max dose of metoprolol. I advised that he follow-up closely with cardiology and return with any worsening of his symptoms he was discharged in improved and stable condition. Procedures Procedural Sedation A heart and lung assessment was performed on this patient at: 11:15 Mallampati Score:: Class I Indication: other (electrical cardioversion ) ASA Class: II Preparation: cardiac catheterization technician applied, pulse oximeter, supplemental O2 applied, reversal agents at bedside and suction/airway equipment at bedside Fentanyl: IV Fentanyl dose (mcg): 99 Midazolam: IV Midazolam dose (mg): 2 Miscellaneous Procedure Procedure Performed: Electrical cardioversion Indication symptomatic A-fib/a flutter with RVR that is paroxysmal in the setting of anticoagulated patient. Patient had pads were placed anterior posteriorly he was synchronized with 200 J single shock was used with successful electrocardioversion. Please see moderate sedation note for remainder of the set up. No complications. Critical Care Critical Care Time Critical Care Time: Yes Attestation: On 07/18/25, the high probability of a clinically significant, sudden or life threatening deterioration of the following system(s) required my full and direct attention, intervention and personal management. The time I documented below is in addition to time spent performing reported procedures but includes the following listed in this critical care notation. Total Time Total Critical Care Time: 35
[2025-07-18] MEDS: MAGNESIUM SULFATE IN WATER 2 GM/50 ML PIGGYBACK IV (09:57)
[2025-07-18] MEDS: METOPROLOL TARTRATE 5MG/5ML VIAL 5 MG IV ×3 (09:57→10:35)
[2025-07-18 10:11] LABS: Albumin Level 4.0 g/dl (3.5-5.0); Chloride 94 mmol/L (98-107); Potassium 3.5 mmoL/L (3.5-5.1); Sodium 133 mmol/L (136-145)
[2025-07-18 10:13] LABS: Blood Urea Nitrogen 36 mg/dl (9-20); Creatinine,Serum 1.30 mg/dl (0.66-1.25); Estimated Glomerular Filt Rate 55 ml/min (>60); GFR (African American) 66 ML/MIN (>60)
[2025-07-18 10:14] LABS: Alanine Aminotransferase 39 U/L (12-78); Albumin/Globulin Ratio 1.3 (1.1-1.8); Alkaline Phosphatase 83 U/L (38-126); Anion Gap 9.5 mEq/L (5-15); Aspartate Amino Transferase 33 U/L (17-59); Bilirubin,Total 1.2 mg/dl (0.2-1.3); Calcium 9.4 mg/dl (8.4-10.2); Carbon Dioxide 33 mmol/L (22.0-30.0); Globulin 3.0 g/dL (1.3-3.2); Glucose 109 mg/dl (74-100); Magnesium 2.4 mg/dl (1.6-2.3); Total Protein,Serum 7.0 g/dl (6.3-8.2)
[2025-07-18 10:24] LABS: NT Pro Brain Natriuretic Pep. 6800 pg/mL (0-125)
[2025-07-18 10:26] LABS: Troponin I 0.10 ng/ml (0.00-0.034)
[2025-07-18 10:45] LABS: Thyroid Stimulating Hormone 0.59 uIU/mL (0.465-4.68)
[2025-07-18 11:00] LABS: D-Dimer 0.49 ug/mL (0.0-0.5)
[2025-07-18] MEDS: LACTATED RINGERS 1000ML 1,000 ML 999 ML IV (11:20)
[2025-07-18 11:21] LABS: Hematocrit 47.4 % (42.0-52.0); Hemoglobin 15.6 g/dL (14.1-18.0); Immature Granulocytes % 0.5 %; Mean Corpuscular HGB Conc 32.9 g/dL (31.8-35.4); Mean Corpuscular Hemoglobin 29.8 pg (27.0-31.2); Mean Corpuscular Volume 90.6 fl (80-94); Nucleated Red Blood Cells % 0 %; Platelet Count 266 K/mm3 (142-424); Red Blood Count 5.23 M/mm3 (4.60-6.20); Red Cell Distribution Width-SD 49.1 fL; White Blood Count 16.3 K/mm3 (4.8-10.8)
[2025-07-18] MEDS: FENTANYL 100MCG/2ML VIAL 100 MCG IV (11:21)
[2025-07-18] MEDS: MIDAZOLAM 5MG/ML 1ML VIAL 2 MG IV (11:23)
--- NOTE | 2025-07-18 11:44 | ECG_ITS ---
APPROVED REPORT Exam: Resting ECG HR:73 bpm ECG Measurements Heart Rate 73 AXES QRSd 144 QRS -42 QT 454 T 123 QTc 480 Conclusion ATRIAL FIBRILLATION LEFT AXIS DEVIATION [QRS AXIS < -30] LEFT BUNDLE BRANCH BLOCK [120+ ms QRS DURATION, 80+ ms Q/S IN V1/V2, 85+ ms R IN I/aVL/V5/V6] ABNORMAL ECG UNCONFIRMED REPORT Electronically signed by : David Yoder, 07/18/2025 15:39:54
[2025-07-18 13:17] LABS: Troponin I 0.12 ng/ml (0.00-0.034)
== END 2025-07-18 13:54 | disposition home or self-care (01) ==
PROVIDERS: Emergency Provider Student in an Organized Health Care Education/Training Program; PCP Family Medicine
DX: I11.0 Hypertensive heart disease with heart failure (principal); I50.33 Acute on chronic diastolic (congestive) heart failure; I5A Non-ischemic myocardial injury (non-traumatic); I48.92 Unspecified atrial flutter; I12.9 Hypertensive chronic kidney disease with stage 1 through stage 4 chronic kidney disease, or unspecified chronic kidney disease; N18.32 Chronic kidney disease, stage 3b; Z87.891 Personal history of nicotine dependence; Z79.01 Long term (current) use of anticoagulants
CPT/HCPCS: 71045; 80053; 83735; 83880; 84443; 84484; 85025; 85378; 92960; 93005; 96365; 96375; 96376; 99152; 99153; 99285; J2250; J3010; J3475; J7120

== ENCOUNTER 2025-07-28 07:11 | Day surgery (SDC) | payer MEDICARE, SELFPAY ==
[2025-07-28 07:14] VITALS: BMI 41.6
--- NOTE | 2025-07-28 07:37 | ECG_ITS ---
APPROVED REPORT Exam: Resting ECG HR:58 bpm ECG Measurements Heart Rate 58 AXES VA 171 P -3 QRSd 161 QRS -31 QT 505 T 121 QTc 502 Conclusion SINUS BRADYCARDIA LEFT AXIS DEVIATION [QRS AXIS < -30] LEFT BUNDLE BRANCH BLOCK [120+ ms QRS DURATION, 80+ ms Q/S IN V1/V2, 85+ ms R IN I/aVL/V5/V6] ABNORMAL ECG UNCONFIRMED REPORT Electronically signed by : Yusuf Ivan MD 07/28/2025 08:39:50
[2025-07-28 07:41] VITALS: BP 139/95; PULSE 63; RESP 18; O2SAT 96
--- NOTE | 2025-07-28 08:00 | SUR.PHASEII ---
Spoke to Hilary pt can come back for follow up appointment on the , notified to take amioderone only once and day per hilary
--- NOTE | 2025-07-28 08:01 | SUR.PHASEII ---
Pt is in sinus rhythm, 12 lead EKG received and Mary Saenz states no cardioversion
== END 2025-07-28 08:08 | disposition home or self-care (01) ==
PROVIDERS: PCP Family Medicine; Visit Provider Internal Medicine
PROC: 5A2204Z Restoration of Cardiac Rhythm, Single (ICD-10-PCS; principal; 2025-07-28 09:30)
DX: R00.1 Bradycardia, unspecified (principal); I44.7 Left bundle-branch block, unspecified; Z79.82 Long term (current) use of aspirin; Z79.890 Hormone replacement therapy; Z79.899 Other long term (current) drug therapy; I11.0 Hypertensive heart disease with heart failure; I50.32 Chronic diastolic (congestive) heart failure; R00.0 Tachycardia, unspecified; I27.20 Pulmonary hypertension, unspecified; I48.0 Paroxysmal atrial fibrillation; J44.9 Chronic obstructive pulmonary disease, unspecified; E78.5 Hyperlipidemia, unspecified; Z87.891 Personal history of nicotine dependence; E66.9 Obesity, unspecified; Z68.41 Body mass index [BMI] 40.0-44.9, adult
CPT/HCPCS: 93005

== ENCOUNTER 2025-09-08 08:05 | Outpatient (CLI) | payer MEDICARE, SELFPAY ==
[2025-09-08 16:00] LABS: T4 (Thyroxine) 8.2 ug/dl (5.53-11.0)
[2025-09-08 16:14] LABS: Thyroid Stimulating Hormone 6.32 uIU/mL (0.465-4.68)
--- OUTSIDE RECORDS SUMMARY | 2025-09-10 08:07 | XMS_ITS | Clinical Summary ---
Author Organization [facility] Address [address] [place] [address] Phone Care Team Providers Care Business Banking Representative Name Role Phone Eduarda Rdz Unavailable [phone] Conditions or Problems Problem Name Problem Code Onset Date Status Entry Date Provider Comment Standard Description Annotate FOLLOW-UP EXAMINATION, AFTER SURGERY NEC Z09 (ICD-10-CM ) 05/16 Active 05/16 Naun Javed MD Encounter for follow-up examination after completed treatment for conditions other than malignant neoplasm HERNIATED LUMBAR DISC 382949298 (SNOMED CT) 04/22 Active 04/22 Naun Javed MD Prolapsed lumbar intervertebral disc SPONDYLOSIS, 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 (ICD-10-CM ) 02/28 Active 02/28 Naun Javed MD Spondylosis without myelopathy or radiculopathy, cervical region Take Note of HEADACHE 46659023 (SNOMED CT) 02/28 Active 02/28 Maggie Rich MA Headache Take Note of JOINT STIFFNESS 99999796 (SNOMED CT) 02/28 Active 02/28 Maggie Rich MA Joint stiffness Take Note of MUSCLE CRAMPS 33322669 (SNOMED CT) 02/28 Active 02/28 Maggie Rich MA Cramp Take Note of BACK PAIN 408311316 (SNOMED CT) 02/28 Active 02/28 Maggie Rich MA Backache Take Note of COUGH 29377954 (SNOMED CT) 02/28 Active 02/28 Maggie Rich MA Cough Take Note of MALAISE AND FATIGUE 388986799 (SNOMED CT) 02/28 Active 02/28 Maggie Rich MA Malaise and fatigue Take Note of SWEATING [id number] (SNOMED CT) 02/28 Active 02/28 Maggie Rich MA Sweating Take Note of THYROID DISEASE, HX OF [id number] (SNOMED CT) 02/28 Active 02/28 Maggie Rich MA H/O: thyroid disorder Take Note of HYPERCHOLESTE ROLEMIA 44259120 (SNOMED CT) 02/28 Active 02/28 Maggie Rich MA Hypercholesterole hannah Medications Medication Instructions Start Date Stop Date Generic Name [facility] Provider ST ARZATE ASPIRIN 81 MG TBE -[place] ASPIRIN [id number] Naun Javed MD CRESTOR 20 MG TABS -[place] ROSUVASTATIN CALCIUM [id number] Naun Javed MD AMLODIPINE BESYLATE 10 MG TABS -[place] AMLODIPINE BESYLATE [id number] Naun Javed MD BENAZEPRIL HCL 40 MG TABS - BE[place] HCL [id number] Naun Javed MD LEVOTHYROXINE SODIUM 125 MCG TABS - LEVOTHYROXINE SODIUM [id number] Naun Javed MD OXYCODONE-ACETAMI NOPHEN 10-325 MG TABS -[place] OXYCODONE-ACETAMI NOPHEN [id number] Naun Javed MD SPIRONOLACTONE 25 MG TABS -[place] SPIRONOLACTONE [id number] Nanu Javed MD PREDNISONE 10 MG TABS -[place] PREDNISONE [id number] Naun Javed MD AMLODIPINE BESY-BENAZEPRIL HCL 5-20 MG CAPS -[place] AMLODIPINE BESY-BENAZEPRIL HCL [id number] Naun Javed MD ROXICET 5-325 MG/5ML ORAL SOLUTION -[place] OXYCODONE-ACETAMI NOPHEN [id number] Naun Javed MD BISOPROLOL FUMARATE TABS -[place] BISOPROLOL FUMARATE TABS [id number] Naun Javed MD SYNTHROID TABS [facility] LEVOTHYROXINE SODIUM TABS [id number] Naun Javed MD CRESTOR 20 MG TABS Non-[place] ROSUVASTATIN CALCIUM [id number] Naun Javed MD AMLODIPINE BESY-BENAZEPRIL HCL 5-20 MG CAPS Non-[place] AMLODIPINE BESY-BENAZEPRIL HCL [id number] Maggie Rich MA ROXICET 5-325 MG/5ML ORAL SOLUTION [facility] OXYCODONE-ACETAMI NOPHEN [id number] Maggie Rich MA BISOPROLOL FUMARATE TABS [facility] BISOPROLOL FUMARATE TABS [id number] Maggie Rich MA SYNTHROID TABS [facility] LEVOTHYROXINE SODIUM TABS [id number] Maggie Rich MA CRESTOR 20 MG TABS [facility] ROSUVASTATIN CALCIUM [id number] Maggie Rich MA Medications Administered No information [...]
--- OUTSIDE RECORDS SUMMARY | 2025-09-10 08:07 | XMS_ITS ---
Laboratory report Created on: August 26, 2025 OSMAN HITCHCOCK : 1955 Sex: Male Author Organization Unknown PROBLEMS Problems List Code Description RESULTS Laboratory Orders Date Order Code Test 2025-06-25 [id number] ANTINUCLEAR AB 9 BY MULTIPLEX 2025-06-25 [id number] JAMES BY IFA RFX T ITER/PATTERN 2025-06-25 [id number] RHEUMATOID FACTO R (RF) Laboratory Results Date LOINC Test Value Unit Reference Range Interpre tation 2025-06-25 5130-0 ANTI-DNA (DS) AB QN 1 IU/ML 0-9 2025-06-25 63840-9 SAND WORKER ANTIBODIES .3 AI 0.0-0.9 2025-06-25 97391-0 BANKS ANTIBODIES <0.2 AI 0.0-0.9 2025-06-25 97133-8 ANTISCLERODERMA- 70 ANTIBODIES .2 AI 0.0-0.9 2025-06-25 42299-7 SJOGREN'S ANTI-SS-A <0.2 AI 0.0-0.9 2025-06-25 68310-2 SJOGREN'S ANTI-SS-B <0.2 AI 0.0-0.9 2025-06-25 73330-7 ANTICHROMATIN ANTIBODIES <0.2 AI 0.0-0.9 2025-06-25 10386-0 ANTI-ZAIN-1 <0.2 AI 0.0-0.9 2025-06-25 46167-4 ANTI-CENTROMERE B ANTIBODIES <0.2 AI 0.0-0.9 2025-06-25 17106-7 JAMES BY IFA RFX TITER/PATTERN N 2025-06-25 98498-7 RHEUMATOID FACTOR (RF) <10.0 IU/ML <14.0
--- OUTSIDE RECORDS SUMMARY | 2025-09-10 08:07 | XMS_ITS | Clinical Summary ---
Author Organization [facility] Address [address] [place] [address] Care Team Providers Care Public Information Coordinator Name Role Phone Mikie Bermudez MD Primary Care Provider [phone] Social History Tobacco Use Types Packs/Day Years [...] [facility]-Depression Screening 1955 [facility]-Hepatitis C Screening 1955 [facility]-Medicare Annual Wellness (AWV) 1955 [facility]-/Child/Adol SDOH Screenings 1955 [facility]-Obesity Intervention 01/17/1962 [facility]- SDOH Screenings 01/17/1974 [facility]-Adult SDOH Screenings 01/17/1974 [facility]-DTaP,Tdap,and Td Vaccine s (1 - Tdap) 01/17/1975 CT Colonography 01/17/2001 Colonoscopy 01/17/2001 FIT-DNA 01/17/2001 FIT 01/17/2001 FOBT 01/17/2001 Sigmoidoscopy 01/17/2001 [facility]-Colorectal Cancer Screening 01/17/2001 [facility]-RSV Vaccine: 60+ Years o r (1 - Risk 50-74 years 1-dose series) 01/17/2006 [facility]-Zoster Vaccines (1 of 2) 01/17/2006 [facility]-Pneumococcal Vaccine: 50 + Years (2 of 2 - PCV) 08/10/2021 08/10/2020 PDX-[id number]-15 Vaccine (4 - 2024- season) 2025 07/13/2022, 08/04/2021, 11/30/2020 [facility]-Influenza Vaccine (#1) 05/26/202508/10, 06/26/2017, 06/25/2012 HPV Vaccines (No Doses Required) Completed [facility]-HIB Vaccines Aged Out No longer e [...] patient's age to complete this topic Insurance MEDICARE Care Teams Public Information Coordinator Relationship Specialty Start Date End Date Mikie Bermudez MD PCP - General 02/05/21
--- OUTSIDE RECORDS SUMMARY | 2025-09-10 08:07 | XMS_ITS | Clinical Summary ---
Author Organization [facility] Address [address] [place] [id number] Care Team Providers Care Reproduction Production Manager Name Role Phone Mikie Bermudez MD Primary Care Provider [phone] Andrés Mansfield MD Unavailable Allergies No known [...] Years (1 of 1 - PCV) 006 RSV Vaccines (1 - Risk 50-74 years 1-dose series) 12/25 Zoster-RZV(Shingrix) (1 of 2) 01/17/2006 Fall Risk Assessment 01/17/2021 Advance Care Planning 09/25/2024 Depression Screening 09/25/2024 COVID-19 Vaccine ( - 2024- season) 2025 Influenza Vaccination (#1) 2025 Insurance [facility] MEDICARE MEDICAID [id number] Care Teams Reproduction Production Manager Relationship Specialty [place] [address] [place] [address] PCP - General Family Medicine 01/25/23 Andrés Mansfield MD [address] [facility] [address] [place] [address] Interventional Cardiology 01/26/23
--- OUTSIDE RECORDS SUMMARY | 2025-09-10 08:07 | XMS_ITS | Clinical Summary ---
Author Organization [facility] Address [facility] [place] [address] Phone Care Team Providers Care Arborer Name Role Phone Vilma Moreno MD, [place] Primary Care Provider + Allergies No known [...] TUNNEL RELEASE; Surgeon: Andrés Odom MD; Location: [facility]; Service: Hand CARPAL TUNNEL RELEASE 10/25/2012 Hand/Right RIGHT CARPAL TUNNEL RELEASE ; Surgeon: Andrés Odom MD; Location: [facility]; Service: Hand Medical History Medical History Date [...] topic Insurance PPO on file Care Teams Arborer Relationship Specialty Start Date End Date Josemanuel Esparza MD [address] [place] [phone] PCP - General Family Medicine 12/01/11
--- OUTSIDE RECORDS SUMMARY | 2025-09-10 08:07 | XMS_ITS ---
Laboratory report Created on: August 26, 2025 OSMAN HITCHCOCK : 1955 Sex: Male Author Organization Unknown PROBLEMS Problems List Code Description RESULTS Laboratory Orders Date Order Code Test 2025-03-17 [id number] [facility] SCREEN Laboratory Results Date LOINC Test Value Unit Reference Range Interpre tation 2025-03-17 5196-1 [facility] SCREEN N NEGATIVE
== END 2025-09-08 23:59 | disposition home or self-care (01) ==
LOC: LAB.DROPOF 09-10 08:06
PROVIDERS: PCP Family Medicine; Visit Provider Family Medicine
DX: E03.9 Hypothyroidism, unspecified (principal); I10 Essential (primary) hypertension
CPT/HCPCS: 84436; 84443